=== PATIENT | male | born 1945 | race African-American/Black ===

== ENCOUNTER 2019-08-26 14:31 | Inpatient (IN) | payer MEDICARE, OTHER ==
[~2019-08-26] VITALS: Ht 167.6 cm; Wt 56.2 kg
--- NOTE | 2019-08-26 15:20 | Emergency Room Report ---
History of Present Illness General Chief Complaint: Generalized Weakness Source: EMS Present Illness HPI Disclaimer: Please note that this report is being documented using [employer] technology. This can lead to erroneous entry secondary to incorrect interpretation by the dictating instrument. HPI: 73-year-old male presents from [facility] due to fever cough shortness of breath and failure to thrive. Patient states he is felt generally weak for the past few days associated with cough and mild shortness of breath. He did report one episode of nausea and vomiting today. Denies any diarrhea abdominal pain or chest pain. PMH: BPH PSH: Reviewed Social Hx: Patient denies smoking drinking or illicit drug use Allergies: Coded Allergies: No Known Allergies (Unverified , 08/26/19) COVID-19 Screening Contact w/high risk pt: Yes Recent Travel to affected area: No Experienced COVID-19 symptoms?: Yes COVID-19 symptoms experienced: Fever (T>100.4F or >38C), Shortness of Breath, Cough Nursing Documentation-PMH Hx Cardiac Problems: Yes - CVD Review of Systems All Other Systems: negative except mentioned in HPI Physical Exam Vital Signs Date Time Temp Pulse Resp B/P (MAP) Pulse Ox O2 Delivery O2 Flow Rate FiO2 08/26/19 14:34 99.3 82 20 132/74 (93) 89 Room Air Sp02 EP Interpretation: reviewed, abnormal General Appearance: well appearing, no apparent distress Head: normocephalic, atraumatic Eyes: bilateral eye PERRL, bilateral eye EOMI ENT: hearing grossly normal, moist mucus membranes Neck: full range of motion, supple Respiratory: lungs clear, normal breath sounds, no rhonchi, no wheezing, speaking full sentences, other - Patient tachypneic Cardiovascular #1: normal peripheral pulses, regular rate, rhythm, no murmur Gastrointestinal: non tender, soft, non-distended, no guarding Neurologic: alert, oriented x3, no focal defects Skin: normal color, warm/dry Procedures Critical Care Time Critical Care Time Critical care is made on this patient due to presentation with pneumonia, suspected coronavirus infection requiring my acute intervention. Critical care time is 38 minutes and excludes procedures. Medical Decision Making Diagnostic Impression: Primary Impression: Pneumonia Additional Impression: Suspected 2019 novel coronavirus infection ER Course MDM: Patient presents from long term facility with flulike symptoms. He was hypoxic on arrival. Differential diagnosis included but not limited to pneumonia,Coronavirus infection, CHF to name a few Clinical course-septic work-up initiated, oxygen given, chest x-ray ordered. Chest x-ray did demonstrate evidence of right sided pneumonia. As patient currently lives in a long term facility will treat for hospital-acquired pneumonia. I did give broad-spectrum antibiotics. Discussed the findings with patient's primary care doctor who agreed to admit to the telemetry floor under isolation. No virus testing was sent as well. Labs Laboratory Tests Test 08/26/19 13:45 08/26/19 15:25 08/26/19 17:50 Urine Color Brown Urine Appearance Clear Urine pH 5 (4.5-8.0) Urine Specific [place] 1.020 (1.005-1.035) Urine Protein 3+ (NEGATIVE) H Urine Glucose (UA) Negative (NEGATIVE) Urine Ketones 1+ (NEGATIVE) H Urine Blood 5+ (NEGATIVE) H Urine Nitrite Negative (NEGATIVE) Urine Bilirubin Negative (NEGATIVE) Urine Urobilinogen 4 MG/DL (0.0-1.0) H Urine Leukocyte Esterase 1+ (NEGATIVE) H Urine RBC 5-10 /HPF (0 - 0) H Urine WBC 2-4 /HPF (0 - 0) Urine Squamous Epithelial Cells None /LPF (NONE/OCC) Urine Amorphous Sediment Few /LPF (NONE) H Urine Bacteria Few /HPF (NONE) Urine Coarse Granular Casts 2-4 /LPF (NONE) H White Blood Count 11.0 K/UL (4.8-10.8) H Red Blood Count 4.59 M/UL (4.70-6.10) L Hemoglobin 14.5 G/DL (14.2-18.0) Hematocrit 40.7 % (42.0-52.0) L Mean Corpuscular Volume 89 FL (80-99) Mean Corpuscular Hemoglobin 31.5 PG (27.0-31.0) H Mean Corpuscular Hemoglobin Concent 35.5 G/DL (32.0-36.0) Red Cell Distribution Width 10.2 % (11.6-14.8) L Platelet Count 260 K/UL (150-450) Mean Platelet Volume 6.5 FL (6.5-10.1) Neutrophils (%) (Auto) % (45.0-75.0) Lymphocytes (%) (Auto) % (20.0-45.0) Monocytes (%) (Auto) % (1.0-10.0) Eosinophils (%) (Auto) % (0.0-3.0) Basophils (%) (Auto) % (0.0-2.0) Neutrophils % (Manual) Pending Lymphocytes % (Manual) Pending Platelet Estimate Pending Platelet Morphology Pending Sodium Level 139 MMOL/L (136-145) Potassium Level 3.6 MMOL/L (3.5-5.1) Chloride Level 99 MMOL/L (98-107) Carbon Dioxide Level 29 MMOL/L (21-32) Anion Gap 11 mmol/L (5-15) Blood Urea Nitrogen 22 mg/dL (7-18) H Creatinine 1.5 MG/DL (0.55-1.30) H Estimated Glomerular Filtration Rate 45.6 mL/min (>60) Glucose Level 127 MG/DL (74-106) H Lactic Acid Level 2.20 mmol/L (0.4-2.0) H Pending Calcium Level 8.9 MG/DL (8.5-10.1) Total Bilirubin 0.7 MG/DL (0.2-1.0) Aspartate Amino Transferase (AST) 87 U/L (15-37) H Alanine Aminotransferase (ALT) 119 U/L (12-78) H Alkaline Phosphatase 100 U/L (46-116) Total Creatine Kinase 110 U/L (26-308) Creatine Kinase MB 0.5 NG/ML (0.0-3.6) Creatine Kinase MB Relative Index 0.4 Troponin I 0.000 ng/mL (0.000-0.056) Pro-B-Type Natriuretic Peptide 253 pg/mL (0-125) H Total Protein 8.4 G/DL (6.4-8.2) H Albumin 3.3 G/DL (3.4-5.0) L Globulin 5.1 g/dL Albumin/Globulin Ratio 0.6 (1.0-2.7) L On reevaluation: Patient remained on oxygen. He did become febrile in the ER so Tylenol was given as well. Tylenol and IV fluids vital signs did improved as well as with supplemental oxygen. Plan-patient admitted to the telemetry floor under isolation. Patient admitted to Dr. Jaramillo EKG Diagnostic Results Rate: normal Rhythm: NSR ST Segments: no acute changes Rhythm Strip Diag. Results EP Interpretation: yes Rate: 75 Rhythm: NSR, no PVC's, no ectopy Other Impression Normal sinus rhythm Chest X-Ray Diagnostic Results Chest X-Ray Diagnostic Results : Chest X-Ray Ordered: Yes # of Views/Limited/Complete: 1 View Indication: Shortness of Breath EP Interpretation: Yes Interpretation: other - Right lower lobe pneumonia no pneumothorax no cardiomegaly Impression: Other - Right-sided consolidation concerning for pneumonia Last Vital Signs Date Time Temp Pulse Resp B/P (MAP) Pulse Ox O2 Delivery O2 Flow Rate FiO2 08/26/19 14:34 99.3 82 20 132/74 (93) 89 Room Air Status: worsened Disposition: ADMITTED INPATIENT Condition: Serious Scripts Unable to Obtain Active Prescriptions or Reported Meds Leonard Parra M.D. August 26, 2019 15:20
--- NOTE | 2019-08-26 15:25 | NUR ---
ED Nurse Note: Pt received in bed, connected to cardic monitor. Per summary report, pt BIB [facility] from [facility] for failure to thrive, SOB, cough and fever unk onset. Pt is aaox4, breathing is normal and unlabored does not appear SOB at this time. Pt oxygen saturation is 97% on room air. Pt denies any pain at this time. No acute distress noted. Safety measures in place. IV access established, blood drawn by CLAUDE Fischer. Will cont. to monitor.
[2019-08-26 15:58] LABS: HEMATOCRIT 40.7 % (42.0-52.0); HEMOGLOBIN 14.5 G/DL (14.2-18.0); MEAN CORPUSCULAR VOLUME 89 FL (80-99); PLATELET COUNT 260 K/UL (150-450); RED BLOOD COUNT 4.59 M/UL (4.70-6.10); RED CELL DISTRIBUTION WIDTH 10.2 % (11.6-14.8)
[2019-08-26 16:00] VITALS: BP 128/79
--- NOTE | 2019-08-26 16:00 | NUR ---
ED Nurse Note: Pt rectal temp taken. Pt has rectal temp of 102.4F. ERMD aware. Will carry out med order.
[2019-08-26 16:06] LABS: ANION GAP 11 mmol/L (5-15); BLOOD UREA NITROGEN 22 mg/dL (7-18); CALCIUM 8.9 MG/DL (8.5-10.1); CARBON DIOXIDE 29 MMOL/L (21-32); CHLORIDE 99 MMOL/L (98-107); CREATININE 1.5 MG/DL (0.55-1.30); POTASSIUM 3.6 MMOL/L (3.5-5.1); SODIUM 139 MMOL/L (136-145)
[2019-08-26 16:13] LABS: APPEARANCE,URINE CLEAR; BILIRUBIN, URINE NEGATIVE (NEGATIVE); COLOR,URINE BROWN; GLUCOSE, URINE (UA) NEGATIVE (NEGATIVE); KETONES,URINE 1+ (NEGATIVE); LEUKOCYTE ESTERASE ,URINE 1+ (NEGATIVE); NITRITE,URINE NEGATIVE (NEGATIVE); PH,URINE 5 (4.5-8.0); PROTEIN,URINE 3+ (NEGATIVE); UROBILINOGEN,URINE 4 MG/DL (0.0-1.0)
[2019-08-26 16:15] LABS: ALANINE AMINOTRANSFERASE 119 U/L (12-78); ALBUMIN 3.3 G/DL (3.4-5.0); ALBUMIN/GLOBULIN RATIO 0.6 (1.0-2.7); ALKALINE PHOSPHATASE 100 U/L (46-116); ASPARTATE AMINO TRANSFERASE 87 U/L (15-37); BILIRUBIN,TOTAL 0.7 MG/DL (0.2-1.0); CKMB 0.5 NG/ML (0.0-3.6); CREATINE KINASE 110 U/L (26-308)
[2019-08-26] MEDS ORDERED: Azithromycin 500 MG in NS 275 ML IV ONE (16:15)
[2019-08-26] MEDS ORDERED: Piperacillin/Tazobactam 3.375 GM in NS 110 ML IVPB ONE (16:15)
[2019-08-26] MEDS ORDERED: Vancomycin 1 GM in NS 275 ML IVPB ONE (16:15)
[2019-08-26 16:40] VITALS: BP 117/56
--- NOTE | 2019-08-26 16:40 | NUR ---
ED Nurse Note: Pt oxygen sat dropped to 92% on RA. Pt placed on supplemental oxygen at 2L via NC.
--- NOTE | 2019-08-26 16:43 | Diagnostic Imaging Report ---
EXAM: XR Chest, 1 View CLINICAL HISTORY: SOB TECHNIQUE: Frontal view of the chest. COMPARISON: None FINDINGS: Hardware: None. Lungs/pleura: Consolidation in the right mid and lower lung is concerning for pneumonia. Trace right pleural effusion. Heart/mediastinum: Normal. No cardiomegaly. Soft tissues: Unremarkable. Bones: No acute fracture. Upper abdomen: Normal. IMPRESSION: Consolidation in the right mid and lower lung is concerning for pneumonia. Trace right pleural effusion.
--- NOTE | 2019-08-26 17:50 | NUR ---
ED Nurse Note: Repeat lactic drawn and sent to lab. Pt is resting in bed. NAD.
[2019-08-26] MEDS ORDERED: Nitroglycerin Subl 0.4mg tab SL PRN (18:15)
[2019-08-26] MEDS ORDERED: Milk of Magnesia 30ml Ud ORAL PRN (18:15)
[2019-08-26] MEDS: Aspirin Baby 81mg ORAL SCH (18:33)
[2019-08-26 18:40] VITALS: BP 120/65
--- NOTE | 2019-08-26 18:40 | NUR ---
ED Nurse Note: Pt rectal temp is now 100.3 after tylenol. Pt given dinner tray, no acute distress noted. Pt remains in 2L oxygen via NC. VSS. Safety measures in place. Will cont. to monitor.
--- NOTE | 2019-08-26 19:45 | NUR ---
ED Nurse Note: Pt ate aprrox 15% of dinner tray. Pt able to swallow without complications.
--- NOTE | 2019-08-26 20:00 | NUR ---
ED Nurse Note: Report given to floor nurse at this time.
--- NOTE | 2019-08-26 20:20 | NUR ---
ED Nurse Note: Pt is stable for transfer to tele unit at this time. Pt is awake and alert, oriented x4, speaking in full sentences. Pt is in no acute distress. Pt remains on 2L oxygen via NC, otherwise no respiratory distress noted. Pt taken to unit via gurney by gomez and RN, connected to athletic monitor. Pt belongings sent with pt. VSS. IV is patent and intact.
[2019-08-26 20:30] VITALS: BP 118/61
--- NOTE | 2019-08-26 20:35 | NUR ---
NURSE NOTES: Received report from CLAUDE Harper. Patient transported via gurney to room 205-2 from E. Patient is on awake, alert and oriented x 4. Patient is on regular diet diet, instructed and amenable. reconditioning associate is on placed, shows sinus rhythm with no chest pain nor discomfort reported. Patient is on room air and no shortness of breath noted. Patient is ambulatory. IV site on right AC G-18, that is intact and patent. Safety measures are in placed, bed in low and locked position, bed alarm is on, side rails up x 2. Call light and bedside table within reach, instructed to call for assistance needed. Will continue plan of care.
[2019-08-26] MEDS: Doxycycline Monohydrate 100mg ORAL SCH (21:56)
[2019-08-26] MEDS: cefTRIAXone 1 GM in NS 55 ML IVPB SCH (21:56)
[2019-08-26] MEDS: 1/2NS w/KCl 20mEq 1000ml 1,000 ML IV SCH (21:56)
[2019-08-27] VITALS: BP 115/62
[2019-08-27 04:00] VITALS: BP 112/66
[2019-08-27 05:37] LABS: HEMATOCRIT 32.4 % (42.0-52.0); HEMOGLOBIN 11.8 G/DL (14.2-18.0); MEAN CORPUSCULAR VOLUME 88 FL (80-99); PLATELET COUNT 201 K/UL (150-450); RED BLOOD COUNT 3.69 M/UL (4.70-6.10); RED CELL DISTRIBUTION WIDTH 10.1 % (11.6-14.8); WHITE BLOOD COUNT 8.1 K/UL (4.8-10.8)
[2019-08-27 06:03] LABS: ALANINE AMINOTRANSFERASE 122 U/L (12-78); ALBUMIN 2.2 G/DL (3.4-5.0); ALBUMIN/GLOBULIN RATIO 0.6 (1.0-2.7); ALKALINE PHOSPHATASE 80 U/L (46-116); ANION GAP 8 mmol/L (5-15); ASPARTATE AMINO TRANSFERASE 113 U/L (15-37); BILIRUBIN,TOTAL 0.6 MG/DL (0.2-1.0); BLOOD UREA NITROGEN 20 mg/dL (7-18); CALCIUM 7.5 MG/DL (8.5-10.1); CARBON DIOXIDE 27 MMOL/L (21-32); CHLORIDE 107 MMOL/L (98-107); CREATININE 1.3 MG/DL (0.55-1.30); SODIUM 142 MMOL/L (136-145)
--- NOTE | 2019-08-27 07:37 | NUR ---
HAND-OFF: Report given to CLAUDE Rebollar. Patient is awake, on stable condition. RN made aware of sputum collection. Plan of care endorsed.
[2019-08-27 08:00] VITALS: BP 99/59
--- NOTE | 2019-08-27 08:00 | NUR ---
NURSE NOTES: Report received from Belem ARCE. Patient is observed in bed, awake, alert, and able to make needs known. IV site is asymptomatic, patent, and intact. Respiratory even and unlabored. Denies pain at this time. Bed is in lowest position with side rails up x2 and brakes are engaged. Bed alarm is on. Encouraged pt to use call light when in need of assistance, pt verbalized understanding. Will continue to monitor.
[2019-08-27] MEDS: Aspirin Baby 81mg ORAL SCH (08:43)
[2019-08-27] MEDS: Doxycycline Monohydrate 100mg ORAL SCH ×2 (08:43→20:04)
[2019-08-27] MEDS ORDERED: Albuterol 90mcg Inhaler 8gm INH PRN (10:00)
--- NOTE | 2019-08-27 10:48 | Consultation ---
Luciana Caceres PHOTO COLORER 08/27/19 1048: History of Present Illness General Date patient seen: August 27, 2019 Time patient seen: 10:00 Chief Complaint: SOB, cough, FTT Referring physician: dr James Reason for Consultation: ezra YATES Present Illness HPI 73 years old male with PMH of BPH and CVD, resident of [facility] , was sent for evaluation due to fever, cough, shortness of breath and failure to thrive. Upon presentation patient was hypoxic and required supplemental oxygen. Patient was febrile with temp 102.4. In emergency department patient had leukocytosis. Lactic acid 2.2 Troponin was negative. pro BNP 253. EKG revealed sinus rhythm, no acute ischemic changes. Chest x-ray demonstrated right middle and right lower lung consolidation concerning for pneumonia with a trace right pleural effusion. Laboratory work-up also revealed AST 87 ALT 119. Albumin 3.3. Urinalysis revealed +3 protein ,+1 leukocyte esterase, no pyuria and ,no bacteria. BUN 22, creatinine 1.5. Patient was swabbed for COVID-19. Patient subsequently admitted to telemetry floor to isolation room for further management. Pulmo consult was requested to assist in management of this patient. Allergies: Coded Allergies: No Known Allergies (Unverified , 08/26/19) Medication History Unable to Obtain Active Prescriptions or Reported Meds Patient History History Provided By: Patient, Medical Record Healthcare decision maker Resuscitation status Advanced Directive on File Review of Systems Constitutional: Reports: fever, weakness Eye: Reports: no symptoms ENT: Reports: no symptoms Respiratory: Reports: see HPI Cardiovascular: Reports: no symptoms Gastrointestinal: Reports: no symptoms Genitourinary: Reports: other - hx of BPH Musculoskeletal: Reports: joint pain - at times Skin: Reports: no symptoms Psychiatric: Reports: no symptoms Neurological: Reports: no symptoms Endocrine: Reports: no symptoms Hematologic/Lymphatic: Reports: no symptoms Physical Exam General Appearance: no apparent distress, alert - awake elderly male , forgetful Lines, tubes and drains: peripheral HEENT: normocephalic, atraumatic, anicteric, mucous membranes moist, PERRL, other - O2 via NC Neck: non-tender, supple Respiratory/Chest: lungs clear, no respiratory distress, no accessory muscle use Cardiovascular/Chest: normal rate, regular rhythm Abdomen: normal bowel sounds, soft Extremities: no calf tenderness, non-pitting Neurologic: alert, responsive - frogetful Musculoskeletal: atrophy - BLE Last 24 Hour Vital Signs Date Time Temp Pulse Resp B/P (MAP) Pulse Ox O2 Delivery O2 Flow Rate FiO2 08/27/19 07:45 95 Nasal Cannula 2.0 28 08/27/19 04:00 98.5 73 17 112/66 (81) 99 08/27/19 04:00 70 08/27/19 00:00 98.1 77 18 115/62 (79) 98 08/27/19 00:00 75 08/26/19 23:45 Nasal Cannula 2.0 08/26/19 21:11 85 08/26/19 20:30 98.5 79 18 118/61 (80) 97 08/26/19 20:20 100.0 78 19 104/65 98 Nasal Cannula 2.0 08/26/19 18:40 100.0 81 23 120/65 98 Nasal Cannula 2.0 08/26/19 16:40 86 27 117/56 97 Nasal Cannula 2.0 08/26/19 16:38 100.0 08/26/19 16:00 102.4 94 20 128/79 97 Room Air 08/26/19 15:25 82 20 Room Air 08/26/19 14:34 99.3 82 20 132/74 (93) 89 Room Air Intake and Output 08/26/19 08/27/19 19:00 07:00 Output Total 100 ml Balance -100 ml Output Urine Total 100 ml Laboratory Tests Test 08/26/19 13:45 08/26/19 15:25 08/26/19 17:50 08/27/19 05:00 Urine Color Brown Urine Appearance Clear Urine pH 5 (4.5-8.0) Urine Specific [place] 1.020 (1.005-1.035) Urine Protein 3+ (NEGATIVE) H Urine Glucose (UA) Negative (NEGATIVE) Urine Ketones 1+ (NEGATIVE) H Urine Blood 5+ (NEGATIVE) H Urine Nitrite Negative (NEGATIVE) Urine Bilirubin Negative (NEGATIVE) Urine Urobilinogen 4 MG/DL (0.0-1.0) H Urine Leukocyte Esterase 1+ (NEGATIVE) H Urine RBC 5-10 /HPF (0 - 0) H Urine WBC 2-4 /HPF (0 - 0) Urine Squamous Epithelial Cells None /LPF (NONE/OCC) Urine Amorphous Sediment Few /LPF (NONE) H Urine Bacteria Few /HPF (NONE) Urine Coarse Granular Casts 2-4 /LPF (NONE) H White Blood Count 11.0 K/UL (4.8-10.8) H 8.1 K/UL (4.8-10.8) Red Blood Count 4.59 M/UL (4.70-6.10) L 3.69 M/UL (4.70-6.10) L Hemoglobin 14.5 G/DL (14.2-18.0) 11.8 G/DL (14.2-18.0) L Hematocrit 40.7 % (42.0-52.0) L 32.4 % (42.0-52.0) L Mean Corpuscular Volume 89 FL (80-99) 88 FL (80-99) Mean Corpuscular Hemoglobin 31.5 PG (27.0-31.0) H 32.0 PG (27.0-31.0) H Mean Corpuscular Hemoglobin Concent 35.5 G/DL (32.0-36.0) 36.4 G/DL (32.0-36.0) H Red Cell Distribution Width 10.2 % (11.6-14.8) L 10.1 % (11.6-14.8) L Platelet Count 260 K/UL (150-450) 201 K/UL (150-450) Mean Platelet Volume 6.5 FL (6.5-10.1) 6.4 FL (6.5-10.1) L Neutrophils (%) (Auto) % (45.0-75.0) % (45.0-75.0) Lymphocytes (%) (Auto) % (20.0-45.0) % (20.0-45.0) Monocytes (%) (Auto) % (1.0-10.0) % (1.0-10.0) Eosinophils (%) (Auto) % (0.0-3.0) % (0.0-3.0) Basophils (%) (Auto) % (0.0-2.0) % (0.0-2.0) Differential Total Cells Counted 100 Neutrophils % (Manual) 89 % (45-75) H Lymphocytes % (Manual) 6 % (20-45) L Monocytes % (Manual) 5 % (1-10) Eosinophils % (Manual) 0 % (0-3) Basophils % (Manual) 0 % (0-2) Band Neutrophils 0 % (0-8) Platelet Estimate Adequate Platelet Morphology Normal Red Blood Cell Morphology Normal Sodium Level 139 MMOL/L (136-145) 142 MMOL/L (136-145) Potassium Level 3.6 MMOL/L (3.5-5.1) 4.0 MMOL/L (3.5-5.1) Chloride Level 99 MMOL/L (98-107) 107 MMOL/L (98-107) Carbon Dioxide Level 29 MMOL/L (21-32) 27 MMOL/L (21-32) Anion Gap 11 mmol/L (5-15) 8 mmol/L (5-15) Blood Urea Nitrogen 22 mg/dL (7-18) H 20 mg/dL (7-18) H Creatinine 1.5 MG/DL (0.55-1.30) H 1.3 MG/DL (0.55-1.30) Estimat Glomerular Filtration Rate 45.6 mL/min (>60) 53.8 mL/min (>60) Glucose Level 127 MG/DL (74-106) H 115 MG/DL (74-106) H Lactic Acid Level 2.20 mmol/L (0.4-2.0) H 0.90 mmol/L (0.66-2.22) Calcium Level 8.9 MG/DL (8.5-10.1) 7.5 MG/DL (8.5-10.1) L Total Bilirubin 0.7 MG/DL (0.2-1.0) 0.6 MG/DL (0.2-1.0) Aspartate Amino Transf (AST/SGOT) 87 U/L (15-37) H 113 U/L (15-37) H Alanine Aminotransferase (ALT/SGPT) 119 U/L (12-78) H 122 U/L (12-78) H Alkaline Phosphatase 100 U/L (46-116) 80 U/L (46-116) Total Creatine Kinase 110 U/L (26-308) Creatine Kinase MB 0.5 NG/ML (0.0-3.6) Creatine Kinase MB Relative Index 0.4 Troponin I 0.000 ng/mL (0.000-0.056) 0.000 ng/mL (0.000-0.056) Pro-B-Type Natriuretic Peptide 253 pg/mL (0-125) H Total Protein 8.4 G/DL (6.4-8.2) H 6.1 G/DL (6.4-8.2) L Albumin 3.3 G/DL (3.4-5.0) L 2.2 G/DL (3.4-5.0) L Globulin 5.1 g/dL 3.9 g/dL Albumin/Globulin Ratio 0.6 (1.0-2.7) L 0.6 (1.0-2.7) L Thyroid Stimulating Hormone (TSH) 1.136 uiU/mL (0.358-3.740) Height (Feet): 5 Height (Inches): 6.00 Weight (Pounds): 130 Medications Current Medications Medications (Trade) Dose Ordered Sig/Lucius Route PRN Reason Start Time Stop Time Status Last Admin Dose Admin Acetaminophen (Tylenol) 650 mg Q4H PRN ORAL Mild Pain (Pain Scale 1-3) 08/26/19 18:15 09/25/19 18:14 Acetaminophen (Tylenol) 650 mg Q4H PRN ORAL Temp >100.5 08/26/19 18:15 09/25/19 18:14 Albuterol Sulfate (Proventil MDI) 2 puff Q4H PRN INH Shortness of Breath 08/27/19 10:00 11/25/19 09:59 Aspirin (ASA) 81 mg DAILY ORAL 08/26/19 18:21 10/10/19 18:20 08/27/19 08:43 Ceftriaxone Sodium 1 gm/ Sodium Chloride 55 ml @ 110 mls/hr Q24H IVPB 08/26/19 21:00 09/02/19 20:59 08/26/19 21:56 Dextrose (Dextrose 50%) 25 ml Q30M PRN IV Hypoglycemia 08/26/19 18:15 11/24/19 18:14 Dextrose (Dextrose 50%) 50 ml Q30M PRN IV Hypoglycemia 08/26/19 18:15 11/24/19 18:14 Doxycycline Monohydrate (Doxycycline Monohydrate) 100 mg Q12HR ORAL 08/26/19 21:00 09/02/19 20:59 08/27/19 08:43 Enoxaparin Sodium (Lovenox) 60 mg Q24H SUBQ 08/26/19 19:15 11/24/19 19:14 UNV Famotidine (Pepcid) 20 mg BID ORAL 08/27/19 09:00 11/25/19 08:59 08/27/19 08:43 Magnesium Hydroxide (Mom) 30 ml HSPRN PRN ORAL Constipation 08/26/19 18:15 09/25/19 18:14 Nitroglycerin (Ntg) 0.4 mg Q5M PRN SL Prn Chest Pain 08/26/19 18:15 09/25/19 18:14 Ondansetron HCl (Zofran) 4 mg Q6H PRN IVP Nausea & Vomiting 08/26/19 18:15 09/25/19 18:14 Sodium 1,000 ml @ 50 mls/hr Q20H IV 08/26/19 21:00 09/25/19 20:59 08/26/19 21:56 Assessment/Plan Assessment/Plan: ASSESSMENT Suspected COVID 19 infection Probably sepsis ( with fevers, leukocytosis, lactic acidosis and evidence of infection) Likely PNA Hypoxia Transaminitis ALEC FTT , probably due to protein calorie malnutrition PLAN OF CARE tele and isolation SARS-CoV-2 by PCR pending agree with empiric Ceftriaxone and Doxycycline for now fup with cx leuk and fevers already resolved fup with CXR in am O2 titrate to keep sat above 90% MDI for now until awaiting for CoVID result DVT prophylaxis ASA resumed gentle IV hydration monitor renal paramerts, lytes, correct as needed trend LFT GI prophylaxis dietary eval re protein supplements case discussed and evaluated by supervising physician Yuneir Decker MD 08/27/19 1816: History of Present Illness General Chief Complaint: SOB, cough, FTT Present Illness Allergies: Coded Allergies: No Known Allergies (Unverified , 08/26/19) Medication History Unable to Obtain Active Prescriptions or Reported Meds Assessment/Plan Assessment/Plan: Patient seen and examined with PHOTO COLORER, agree with A&P as it reflects our joint deliberations. NHR PNA Abx R/O COVID PRN HFA Asp precautions HEEL BREASTER eval DVT Px: LMWH Discuss GOLuciana De La Rosa PHOTO COLORER August 27, 2019 10:48 Yunier Decker MD August 27, 2019 18:16
[2019-08-27 12:00] VITALS: BP 112/62
--- NOTE | 2019-08-27 12:43 | Infectious Diseases Prog Note ---
Assessment/Plan Assessment/Plan Full consult dictated: A) 1) CAP 2) rule out covid-19 virus infection 3) possible sepsis P) 1) ceftriaxone and doxycycline 2) await covid19 virus infection 3) f/u labs and chest x-ray 4) thank you Subjective Allergies: Coded Allergies: No Known Allergies (Unverified , 08/26/19) Objective Vital Signs Last 24 Hour Vital Signs Date Time Temp Pulse Resp B/P (MAP) Pulse Ox O2 Delivery O2 Flow Rate FiO2 08/27/19 12:00 98.2 68 17 112/62 (79) 98 08/27/19 09:00 Nasal Cannula 2.0 08/27/19 08:02 62 08/27/19 08:00 98.1 76 17 99/59 (72) 96 08/27/19 07:45 95 Nasal Cannula 2.0 28 08/27/19 04:00 98.5 73 17 112/66 (81) 99 08/27/19 04:00 70 08/27/19 00:00 98.1 77 18 115/62 (79) 98 08/27/19 00:00 75 08/26/19 23:45 Nasal Cannula 2.0 08/26/19 21:11 85 08/26/19 20:30 98.5 79 18 118/61 (80) 97 08/26/19 20:20 100.0 78 19 104/65 98 Nasal Cannula 2.0 08/26/19 18:40 100.0 81 23 120/65 98 Nasal Cannula 2.0 08/26/19 16:40 86 27 117/56 97 Nasal Cannula 2.0 08/26/19 16:38 100.0 08/26/19 16:00 102.4 94 20 128/79 97 Room Air 08/26/19 15:25 82 20 Room Air 08/26/19 14:34 99.3 82 20 132/74 (93) 89 Room Air Height (Feet): 5 Height (Inches): 6.00 Weight (Pounds): 130 Laboratory Tests Test 08/26/19 13:45 08/26/19 15:25 08/26/19 17:50 08/27/19 05:00 Urine Color Brown Urine Appearance Clear Urine pH 5 (4.5-8.0) Urine Specific [place] 1.020 (1.005-1.035) Urine Protein 3+ (NEGATIVE) H Urine Glucose (UA) Negative (NEGATIVE) Urine Ketones 1+ (NEGATIVE) H Urine Blood 5+ (NEGATIVE) H Urine Nitrite Negative (NEGATIVE) Urine Bilirubin Negative (NEGATIVE) Urine Urobilinogen 4 MG/DL (0.0-1.0) H Urine Leukocyte Esterase 1+ (NEGATIVE) H Urine RBC 5-10 /HPF (0 - 0) H Urine WBC 2-4 /HPF (0 - 0) Urine Squamous Epithelial Cells None /LPF (NONE/OCC) Urine Amorphous Sediment Few /LPF (NONE) H Urine Bacteria Few /HPF (NONE) Urine Coarse Granular Casts 2-4 /LPF (NONE) H White Blood Count 11.0 K/UL (4.8-10.8) H 8.1 K/UL (4.8-10.8) Red Blood Count 4.59 M/UL (4.70-6.10) L 3.69 M/UL (4.70-6.10) L Hemoglobin 14.5 G/DL (14.2-18.0) 11.8 G/DL (14.2-18.0) L Hematocrit 40.7 % (42.0-52.0) L 32.4 % (42.0-52.0) L Mean Corpuscular Volume 89 FL (80-99) 88 FL (80-99) Mean Corpuscular Hemoglobin 31.5 PG (27.0-31.0) H 32.0 PG (27.0-31.0) H Mean Corpuscular Hemoglobin Concent 35.5 G/DL (32.0-36.0) 36.4 G/DL (32.0-36.0) H Red Cell Distribution Width 10.2 % (11.6-14.8) L 10.1 % (11.6-14.8) L Platelet Count 260 K/UL (150-450) 201 K/UL (150-450) Mean Platelet Volume 6.5 FL (6.5-10.1) 6.4 FL (6.5-10.1) L Neutrophils (%) (Auto) % (45.0-75.0) % (45.0-75.0) Lymphocytes (%) (Auto) % (20.0-45.0) % (20.0-45.0) Monocytes (%) (Auto) % (1.0-10.0) % (1.0-10.0) Eosinophils (%) (Auto) % (0.0-3.0) % (0.0-3.0) Basophils (%) (Auto) % (0.0-2.0) % (0.0-2.0) Differential Total Cells Counted 100 Neutrophils % (Manual) 89 % (45-75) H Lymphocytes % (Manual) 6 % (20-45) L Monocytes % (Manual) 5 % (1-10) Eosinophils % (Manual) 0 % (0-3) Basophils % (Manual) 0 % (0-2) Band Neutrophils 0 % (0-8) Platelet Estimate Adequate Platelet Morphology Normal Red Blood Cell Morphology Normal Sodium Level 139 MMOL/L (136-145) 142 MMOL/L (136-145) Potassium Level 3.6 MMOL/L (3.5-5.1) 4.0 MMOL/L (3.5-5.1) Chloride Level 99 MMOL/L (98-107) 107 MMOL/L (98-107) Carbon Dioxide Level 29 MMOL/L (21-32) 27 MMOL/L (21-32) Anion Gap 11 mmol/L (5-15) 8 mmol/L (5-15) Blood Urea Nitrogen 22 mg/dL (7-18) H 20 mg/dL (7-18) H Creatinine 1.5 MG/DL (0.55-1.30) H 1.3 MG/DL (0.55-1.30) Estimat Glomerular Filtration Rate 45.6 mL/min (>60) 53.8 mL/min (>60) Glucose Level 127 MG/DL (74-106) H 115 MG/DL (74-106) H Lactic Acid Level 2.20 mmol/L (0.4-2.0) H 0.90 mmol/L (0.66-2.22) Calcium Level 8.9 MG/DL (8.5-10.1) 7.5 MG/DL (8.5-10.1) L Total Bilirubin 0.7 MG/DL (0.2-1.0) 0.6 MG/DL (0.2-1.0) Aspartate Amino Transf (AST/SGOT) 87 U/L (15-37) H 113 U/L (15-37) H Alanine Aminotransferase (ALT/SGPT) 119 U/L (12-78) H 122 U/L (12-78) H Alkaline Phosphatase 100 U/L (46-116) 80 U/L (46-116) Total Creatine Kinase 110 U/L (26-308) Creatine Kinase MB 0.5 NG/ML (0.0-3.6) Creatine Kinase MB Relative Index 0.4 Troponin I 0.000 ng/mL (0.000-0.056) 0.000 ng/mL (0.000-0.056) Pro-B-Type Natriuretic Peptide 253 pg/mL (0-125) H Total Protein 8.4 G/DL (6.4-8.2) H 6.1 G/DL (6.4-8.2) L Albumin 3.3 G/DL (3.4-5.0) L 2.2 G/DL (3.4-5.0) L Globulin 5.1 g/dL 3.9 g/dL Albumin/Globulin Ratio 0.6 (1.0-2.7) L 0.6 (1.0-2.7) L Thyroid Stimulating Hormone (TSH) 1.136 uiU/mL (0.358-3.740) Current Medications Medications (Trade) Dose Ordered Sig/Lucius Route PRN Reason Start Time Stop Time Status Last Admin Dose Admin Acetaminophen (Tylenol) 650 mg Q4H PRN ORAL Mild Pain (Pain Scale 1-3) 08/26/19 18:15 09/25/19 18:14 Acetaminophen (Tylenol) 650 mg Q4H PRN ORAL Temp >100.5 08/26/19 18:15 09/25/19 18:14 Albuterol Sulfate (Proventil MDI) 2 puff Q4H PRN INH Shortness of Breath 08/27/19 10:00 11/25/19 09:59 Aspirin (ASA) 81 mg DAILY ORAL 08/26/19 18:21 10/10/19 18:20 08/27/19 08:43 Azithromycin (Zithromax) 250 mg DAILY ORAL 08/28/19 09:00 09/04/19 08:59 UNV Ceftriaxone Sodium 1 gm/ Sodium Chloride 55 ml @ 110 mls/hr Q24H IVPB 08/26/19 21:00 09/02/19 20:59 08/26/19 21:56 Dextrose (Dextrose 50%) 25 ml Q30M PRN IV Hypoglycemia 08/26/19 18:15 11/24/19 18:14 Dextrose (Dextrose 50%) 50 ml Q30M PRN IV Hypoglycemia 08/26/19 18:15 11/24/19 18:14 Doxycycline Monohydrate (Doxycycline Monohydrate) 100 mg Q12HR ORAL 08/26/19 21:00 09/02/19 20:59 08/27/19 08:43 Enoxaparin Sodium (Lovenox) 60 mg Q24H SUBQ 08/26/19 19:15 11/24/19 19:14 UNV Famotidine (Pepcid) 20 mg BID ORAL 08/27/19 09:00 11/25/19 08:59 08/27/19 08:43 Magnesium Hydroxide (Mom) 30 ml HSPRN PRN ORAL Constipation 08/26/19 18:15 09/25/19 18:14 Nitroglycerin (Ntg) 0.4 mg Q5M PRN SL Prn Chest Pain 08/26/19 18:15 09/25/19 18:14 Ondansetron HCl (Zofran) 4 mg Q6H PRN IVP Nausea & Vomiting 08/26/19 18:15 09/25/19 18:14 Sodium 1,000 ml @ 50 mls/hr Q20H IV 08/26/19 21:00 09/25/19 20:59 08/26/19 21:56 Marsha Rivera MD August 27, 2019 12:43
--- NOTE | 2019-08-27 13:23 | NUR ---
NURSE NOTES: Contacted Dr. Jaramillo regarding lovenox dosage, awaiting call back.
--- NOTE | 2019-08-27 13:47 | NUR ---
NURSE NOTES: Per Dr. Jaramillo, keep lovenox 60mg subq. Will carry out order.
[2019-08-27] MEDS: Enoxaparin 60mg Inj SUBQ SCH (14:20)
[2019-08-27 16:00] VITALS: BP 100/66
[2019-08-27] MEDS: 1/2NS w/KCl 20mEq 1000ml 1,000 ML IV SCH (17:35)
--- NOTE | 2019-08-27 19:40 | NUR ---
NURSE NOTES: Received report from CLAUDE Rebollar. Patient is on bed, awake, alert and oriented x 4. Patient is on regular diet diet, instructed and amenable. tailor apprentice is on placed, shows sinus rhythm with no chest pain nor discomfort reported. Patient is on nasal cannula @ 2Lpm and no shortness of breath noted. Patient is ambulatory. IV site on right AC G-18, with running fluid of 1/2 NS @ 50cc/hour that is intact and patent. Safety measures are in placed, bed in low and locked position, bed alarm is on, side rails up x 2. Call light and bedside table within reach, instructed to call for assistance needed. Will continue plan of care
--- NOTE | 2019-08-27 19:44 | NUR ---
HAND-OFF: Report given to Belem ARCE. Patient is in stable condition. Endorsed plan of care.
[2019-08-27 20:00] VITALS: BP 105/60
[2019-08-27] MEDS: cefTRIAXone 1 GM in NS 55 ML IVPB SCH (20:05)
[2019-08-28] VITALS: BP 109/61
--- NOTE | 2019-08-28 00:29 | History and Physical Report ---
DATE OF ADMISSION: 08/26/2019 CHIEF COMPLAINT AND REASON FOR HOSPITALIZATION: The patient is a 73-year-old man admitted with weakness, hypoxemia, pneumonia. HISTORY OF PRESENT ILLNESS: The patient is generally in good health. This is a 73-year-old man, who lives in a assisted living facility. He was sent in for eating and drinking very little over the last 3 days and generalized weakness, O2 saturation of 89% on room air. Chest x-ray shows right-sided infiltrate. There was a concern for COVID-19. He has not been tested but apparently other residents of his facility have had the COVID-19. The patient has a history of prior prostatectomy and possibly coronary disease as he has taken baby aspirin in the past. No chest pain. No productive cough. He denies shortness of breath at this time but he is weak. He has atypical gait for longstanding. ALLERGIES: None known. MEDICATIONS: Aspirin 81 mg daily which he takes intermittently. HABITS: He is a nondrinker and nonsmoker. PAST SURGICAL HISTORY: Prostatectomy. SYSTEM REVIEW: HEAD, EYES, EARS, NOSE, AND THROAT: Vision and hearing is good. ENDOCRINE: No diabetes or thyroid disease. PULMONARY: See history of present illness. No known TB. CARDIAC: He is not complaining of chest pain, palpitations, leg edema. GASTROINTESTINAL: Anorexia. No abdominal pain, nausea, vomiting. GENITOURINARY: No dysuria or hematuria. NEUROLOGIC: No CVA or seizures. He has an abnormal gait. PHYSICAL EXAMINATION: GENERAL: The patient is alert man, in no acute distress, thin. VITAL SIGNS: Temperature 98.5, pulse 70, respiratory rate 20, blood pressure 100/66. HEAD, EYES, EARS, NOSE, AND THROAT: Sclerae are nonicteric. Ocular motions intact in all directions. Oral mucosa slightly dry. NECK: No adenopathy or thyroid enlargement. LUNGS: Clear. He has a dry cough. HEART: Regular rhythm. ABDOMEN: Soft without organomegaly. EXTREMITIES: No edema. NEUROLOGIC: He is alert and responsive. Moves all extremities equally. No focal weakness. PERTINENT LABORATORY DATA: Initial white count 36413, hemoglobin 14.5. Electrolytes normal. BUN 22, creatinine 1.5, glucose 127. BNP of 253. Albumin 3.3. AST 87, ALT of 119. IMPRESSION: 1. Pneumonia. 2. Anorexia. 3. Elevated liver enzymes. 4. History of prostatectomy. 5. History of possible mild coronary disease. PLAN: The patient will be hydrated, put on empiric antibiotics. We will get appropriate consultation. We will get ultrasound of the abdomen after liver enzymes. Earle Jaramillo M.D. DR: Abner JOB#: [id number] CC:
[2019-08-28 04:00] VITALS: BP 113/65
[2019-08-28 06:19] LABS: BASOPHILS % (AUTO) 1.2 % (0.0-2.0); EOSINOPHILS % (AUTO) 1.3 % (0.0-3.0); HEMATOCRIT 33.1 % (42.0-52.0); LYMPHOCYTES % (AUTO) 10.1 % (20.0-45.0); MEAN CORPUSCULAR VOLUME 88 FL (80-99); MONOCYTES % (AUTO) 9.1 % (1.0-10.0); NEUTROPHILS % (AUTO) 78.2 % (45.0-75.0); PLATELET COUNT 223 K/UL (150-450); RED BLOOD COUNT 3.77 M/UL (4.70-6.10); RED CELL DISTRIBUTION WIDTH 10.2 % (11.6-14.8); WHITE BLOOD COUNT 6.9 K/UL (4.8-10.8)
[2019-08-28 06:22] LABS: ALANINE AMINOTRANSFERASE 97 U/L (12-78); ALBUMIN 2.3 G/DL (3.4-5.0); ALBUMIN/GLOBULIN RATIO 0.6 (1.0-2.7); ALKALINE PHOSPHATASE 77 U/L (46-116); ANION GAP 8 mmol/L (5-15); ASPARTATE AMINO TRANSFERASE 64 U/L (15-37); BILIRUBIN,TOTAL 0.4 MG/DL (0.2-1.0); BLOOD UREA NITROGEN 20 mg/dL (7-18); CALCIUM 8.1 MG/DL (8.5-10.1); CARBON DIOXIDE 26 MMOL/L (21-32); CHLORIDE 105 MMOL/L (98-107); CREATININE 1.1 MG/DL (0.55-1.30); POTASSIUM 3.6 MMOL/L (3.5-5.1); SODIUM 139 MMOL/L (136-145)
--- NOTE | 2019-08-28 07:58 | NUR ---
HAND-OFF: Report given to CLAUDE Collins. Patient is in stable condition, plan of care endorsed.
--- NOTE | 2019-08-28 07:59 | NUR ---
NURSE NOTES: Received patient in bed awake. O2 via NC in place, no SOB or acute distress. IV line intact and patent. Condom catheter in place draining yellow colored urine. On NPO as instructed by night RN for Abd. CHAVEZ. HOB elevated. Bed locked in lowest position. Call light within reach. Will continue plan of care.
[2019-08-28 08:00] VITALS: BP 121/64
[2019-08-28] MEDS ORDERED: Azithromycin 250mg tab ORAL SCH (09:00)
[2019-08-28] MEDS: Doxycycline Monohydrate 100mg ORAL SCH ×2 (09:15→20:43)
[2019-08-28] MEDS: Aspirin Baby 81mg ORAL SCH (09:15)
--- NOTE | 2019-08-28 09:18 | Pulmonology Progress Note ---
Luciana Caceres TEACHER AIDE 08/28/19 0918: Assessment/Plan Assessment/Plan ASSESSMENT Suspected COVID 19 infection Probably sepsis ( with fevers, leukocytosis, lactic acidosis and evidence of infection) Likely PNA Hypoxia Transaminitis ALEC FTT , probably due to protein calorie malnutrition PLAN OF CARE tele isolation SARS-CoV-2 by PCR pending agree with empiric Ceftriaxone and Doxycycline for now fup with cx BCX NGTD leuk and fevers already resolved fup with CXR this am -epnding O2 titrate to keep sat above 90% MDI for now until awaiting for CoVID result DVT prophylaxis ASA resumed gentle IV hydration monitor renal paramerts, lytes, correct as needed trend LFT-> trending down abd US pending GI prophylaxis dietary eval re protein supplements case discussed and evaluated by supervising physician Subjective Allergies: Coded Allergies: No Known Allergies (Unverified , 08/26/19) Subjective afebrile pulse ox stable on O2 2 L via NC no signs of resp distress CXR pending for this am CoVID pending, remains in isolation Objective Last 24 Hour Vital Signs Date Time Temp Pulse Resp B/P (MAP) Pulse Ox O2 Delivery O2 Flow Rate FiO2 08/28/19 08:00 96.4 72 20 121/64 (83) 96 08/28/19 04:00 72 08/28/19 04:00 99.3 74 20 113/65 (81) 97 08/28/19 00:00 99.7 77 21 109/61 (77) 95 08/28/19 00:00 73 08/27/19 21:00 Nasal Cannula 2.0 08/27/19 20:21 96 Nasal Cannula 2.0 28 08/27/19 20:00 70 08/27/19 20:00 100.1 73 22 105/60 (75) 97 08/27/19 16:00 98.5 70 20 100/66 (77) 99 08/27/19 15:53 70 08/27/19 12:00 98.2 68 17 112/62 (79) 98 08/27/19 11:51 63 Intake and Output 08/27/19 08/28/19 19:00 07:00 Intake Total 50 ml 1150 ml Output Total 480 ml Balance 50 ml 670 ml Intake Oral 600 ml IV Total 50 ml 550 ml Output Urine Total 480 ml # Voids 3 # Bowel Movements 1 3 Objective General Appearance: no apparent distress, alert , awake elderly male , forgetful Lines, tubes and drains: peripheral HEENT: normocephalic, atraumatic, anicteric, mucous membranes moist, PERRL, other - O2 via NC Neck: non-tender, supple Respiratory/Chest: lungs clear, no respiratory distress, no accessory muscle use Cardiovascular/Chest: normal rate, regular rhythm Abdomen: normal bowel sounds, soft Extremities: no calf tenderness, non-pitting Neurologic: alert, responsive , forgetful Musculoskeletal: atrophy BLE Microbiology Date/Time Source Procedure Growth Status 08/26/19 15:24 Blood Blood Culture - Preliminary NO GROWTH AFTER 24 HOURS Resulted 08/26/19 15:10 Blood Blood Culture - Preliminary NO GROWTH AFTER 24 HOURS Resulted Laboratory Tests 08/28/19 05:00: White Blood Count 6.9, Red Blood Count 3.77L, Hemoglobin 12.0L, Hematocrit 33.1L , Mean Corpuscular Volume 88, Mean Corpuscular Hemoglobin 31.9H, Mean Corpuscular Hemoglobin Concent 36.3H, Red Cell Distribution Width 10.2L, Platelet Count 223, Mean Platelet Volume 6.2L, Neutrophils (%) (Auto) 78.2H, Lymphocytes (%) (Auto) 10.1L, Monocytes (%) (Auto) 9.1, Eosinophils (%) (Auto) 1.3, Basophils (%) (Auto) 1.2, Sodium Level 139, Potassium Level 3.6, Chloride Level 105, Carbon Dioxide Level 26, Anion Gap 8, Blood Urea Nitrogen 20H, Creatinine 1.1, Estimat Glomerular Filtration Rate > 60, Glucose Level 100, Calcium Level 8.1L, Total Bilirubin 0.4, Aspartate Amino Transf (AST/SGOT) 64H, Alanine Aminotransferase (ALT/SGPT) 97H, Alkaline Phosphatase 77, Total Protein 6.3L, Albumin 2.3L, Globulin 4.0, Albumin/Globulin Ratio 0.6L Current Medications Medications (Trade) Dose Ordered Sig/Lucius Route PRN Reason Start Time Stop Time Status Last Admin Dose Admin Acetaminophen (Tylenol) 650 mg Q4H PRN ORAL Mild Pain (Pain Scale 1-3) 08/26/19 18:15 09/25/19 18:14 Acetaminophen (Tylenol) 650 mg Q4H PRN ORAL Temp >100.5 08/26/19 18:15 6/1/20 18:14 Albuterol Sulfate (Proventil MDI) 2 puff Q4H PRN INH Shortness of Breath 08/27/19 10:00 11/25/19 09:59 Aspirin (ASA) 81 mg DAILY ORAL 08/26/19 18:21 10/10/19 18:20 08/27/19 08:43 Ceftriaxone Sodium 1 gm/ Sodium Chloride 55 ml @ 110 mls/hr Q24H IVPB 08/26/19 21:00 09/02/19 20:59 08/27/19 20:05 Dextrose (Dextrose 50%) 25 ml Q30M PRN IV Hypoglycemia 08/26/19 18:15 11/24/19 18:14 Dextrose (Dextrose 50%) 50 ml Q30M PRN IV Hypoglycemia 08/26/19 18:15 11/24/19 18:14 Doxycycline Monohydrate (Doxycycline Monohydrate) 100 mg Q12HR ORAL 08/26/19 21:00 09/02/19 20:59 08/27/19 20:04 Enoxaparin Sodium (Lovenox) 60 mg Q24H SUBQ 08/27/19 14:00 11/25/19 13:59 08/27/19 14:20 Famotidine (Pepcid) 20 mg BID ORAL 08/27/19 09:00 11/25/19 08:59 08/27/19 17:36 Magnesium Hydroxide (Mom) 30 ml HSPRN PRN ORAL Constipation 08/26/19 18:15 09/25/19 18:14 Nitroglycerin (Ntg) 0.4 mg Q5M PRN SL Prn Chest Pain 08/26/19 18:15 09/25/19 18:14 Ondansetron HCl (Zofran) 4 mg Q6H PRN IVP Nausea & Vomiting 08/26/19 18:15 09/25/19 18:14 Sodium 1,000 ml @ 50 mls/hr Q20H IV 08/26/19 21:00 09/25/19 20:59 08/27/19 17:35 Yunier Decker MD 08/28/19 1345: Assessment/Plan Assessment/Plan Patient seen and examined with TEACHER AIDE, agree with A&P. Tm 99.7 on 2L VSS + cough + SOB, CXR worse, passed MEDICAL DOCTOR Abx, HFA's, aspiration precautions, LMWH, await COVID results Subjective Allergies: Coded Allergies: No Known Allergies (Unverified , 08/26/19) Luciana Caceres NP August 28, 2019 09:18 Yunier Decker MD August 28, 2019 13:45
[2019-08-28 12:00] VITALS: BP 109/61
--- NOTE | 2019-08-28 12:14 | Diagnostic Imaging Report ---
Indication: Shortness of breath Technique: One view of the chest Comparison: 08/26/2019 Findings: Triangular infiltrate in the periphery of the right lung is probably slightly more extensive, extending farther cephalad. Reticular retrocardiac an peripheral left midlung opacities are slightly more prominent. Impression: Slight interim increase in bilateral right greater than left infiltrates, likely pneumonia, over 2 days
--- NOTE | 2019-08-28 12:30 | NUR ---
NURSE NOTES: IV line found pulled out, reinserted to right hand using g22.
--- NOTE | 2019-08-28 12:47 | NUR ---
NURSE NOTES: IV out and reinserted on right hand using g22.
[2019-08-28] MEDS: 1/2NS w/KCl 20mEq 1000ml 1,000 ML IV SCH (13:07)
[2019-08-28] MEDS: Enoxaparin 60mg Inj SUBQ SCH (13:08)
--- NOTE | 2019-08-28 13:13 | NUR ---
ST NOTES: REFERRED FOR SWALLOW EVAL BY DR SPRING (PRIMARY MD DR MARIN), SEE FULL REPORT. DYSPHAGIA AND ASPIRATION RISK FACTORS FOR THIS 73 Y.O.M. (FROM [place] ACUTE ISSUES: R/O COVID 19 AND R MIDDLE AND LOWER LOBE PNA (AND GETTING TX FOR HOSPITAL-ACQUIRED PNA), GENERAL WEAKNESS, FTT THE LAST FEW DAYS (AND HAS FOOD/LIQUID RESTRICTIONS/PREFERENCES FOR A LONG TIME PER PT), SOB,FEVER, DRY COUGH, DESAT TO 89% UPON ADMIT NOW ON ROOM AIR AND AT 28% FI02, RESP RATE 20-21 AND SP02 95-97% ON ROOM AIR. MEDS: NOW ON PEPCID (GERD) AND ALBUTEROL RESP ISSUES AT ASSISTED LIVING FACILITY HAD REG TEXTURE/THIN LIQUIDS BUT SPECIFIC DIET RESTRICTIONS/PREFERENCES (CALLED RD TO CHECK WITH PT/FACILITY) NOW ON REG TEXTURE DIET AND THIN LIQUIDS WITH POOR INTAKE (LIKELY RELATED TO ABOVE ISSUE). PER RN, NOLBERTO, NO OVERT ASPIRATION WITH WHOLE PILLS AND WATER. PT DENIES SWALLOWING PROBLEMS AND HE HAS SOME MISSING TEETH. NO POLST/AD REGARDING TUBE FEEDING PREFERENCES BUT PT WANTS PO AND DISLIKES THICKENED LIQUIDS. ALERT AND ORIENTED TO COUNTRY/STATE NOT CITY NOR HOSPITAL NAME. ORIENTED TO YEAR BUT NOT SITUATION. FROM [place] AND HAS DIALECT BUT GOOD SPEECH INTELLIGIBILITY. INITIAL IMPRESSIONS: GROSSLY FUNCTIONAL OROMOTOR SKILLS AND HAS SOME MISSING TEETH. POOR ABILITY TO COMPREHEND TONGUE STRENGTH TESTING. VOICE/SPEECH CLEAR FOR SENTENCES, VOLUNTARY AND REFLEXIVE COUGH DRY AND WEAK APPEARS TO HAVE A GROSSLY FUNCTIONAL SWALLOW W/O OVERT S/S OF ASPIRATION WITH NECTAR THICK LIQUIDS VIA STRAW SEQUENTIAL SIP (DISLIKES), PUREED TSP AND MASTICATED SOLIDS. GIVEN THIN LIQUIDS VIA STRAW FOR SEQUENTIAL SIPS (HORSESHOE BEND SWALLOW WATER PROTOCOL), ONLY ABLE TO SWALLOW 1/2 OF 3 0Z WATER AND NEEDED TO STOP, SLIGHT INCREASE IN SOB AND RESP RATE WENT FROM 20 BPM TO 24 BPM (DOWN TO BASELINE AFTER SHORT 30 SECOND REST) MAY HAVE ASP RISK DUE TO RESP-SWALLOW INCOORDINATION IF RESP RATE >25 BPM DESAT TO 89% UPON ADMIT (NO PULSE OX AVAILABLE). ? SILENT ASPIRATION RISK (NO NEURO DX) POOR INTAKE (?MAY RELATE TO DIET RESTRICTIONS/PREFERENCES) RECOMMENDATIONS: CONTINUE WITH PO INTAKE OF CURRENT REGULAR TEXTURE DIET AND THIN LIQUIDS WITH POSTED GENERAL ASPIRATION AND REFLUX PRECAUTIONS (ON GERD MEDS PEPCID) REST IF RESP RATE >25 BPM AND SP02 NOT BELOW 94% SUPERVISE PRN AND MEDS WHOLE WITH WATER OK PER RN RD CONSULT REGARDING DIET RESTRICTIONS/PREFERENCES AND HIGH INDIGO SUP CONSIDER MOD BARIUM SWALLOW STUDY MBSS IF NEEDED IP OR OP (GIVEN CURRENT R MID/LOWER LOBE PNA ? ASPIRATION RELATED) TO FURTHER ASSESS SWALLOW, DETERMINE SILENT ASPIRATION RISK AND ATTEMPT TRIAL TX (IF INDICATED IP OR OP IF DC). ? NEED FOR COG-COM EVAL/TX.
--- NOTE | 2019-08-28 14:41 | NUR ---
CASE MANAGEMENT:REVIEW 73 YR OLD MALE BIBA FROM [facility]; GENERALIZED WEAKNESS, SOB, COUGH AND FEVER SI:PNA. SUSPECTED COVID 19 102.4 82 20 132/74 97% ON RA WBC+11.0 BUN+22 CR+1.5 AST/ALT+87/119 IS: 1L NS BOLUS TYLENOL PO IV AZITHROMYCIN IV ZOSYN IV VANCO BLOOD CX COVID 19 : TO TELEMETRY PLAN: R/O COVID 19
[2019-08-28 15:37] VITALS: BP 101/66
--- NOTE | 2019-08-28 16:12 | General Progress Note ---
Assessment/Plan Problem List: (1) Healthcare-associated pneumonia ICD Codes: J18.9 - Pneumonia, unspecified organism SNOMED: 072832698, 917274212 (2) Suspected 2019 novel coronavirus infection ICD Codes: Z20.828 - Contact with and (suspected) exposure to other viral communicable diseases SNOMED: 762833501 (3) Coronary arteriosclerosis ICD Codes: I25.10 - Atherosclerotic heart disease of [place] coronary artery without angina pectoris SNOMED: 79061410 Assessment/Plan: alessandra hurst supportive care Subjective Constitutional: Reports: weakness HEENT: Reports: no symptoms Cardiovascular: Reports: no symptoms Respiratory: Reports: SOB with excertion Gastrointestinal/Abdominal: Reports: no symptoms Genitourinary: Reports: no symptoms Neurologic/Psychiatric: Reports: no symptoms Endocrine: Reports: no symptoms Hematologic/Lymphatic: Reports: no symptoms Allergies: Coded Allergies: No Known Allergies (Unverified , 08/26/19) Objective Last 24 Hour Vital Signs Date Time Temp Pulse Resp B/P (MAP) Pulse Ox O2 Delivery O2 Flow Rate FiO2 08/28/19 15:37 98.2 79 20 101/66 (78) 96 08/28/19 12:00 96.3 75 20 109/61 (77) 94 08/28/19 12:00 73 08/28/19 09:00 Nasal Cannula 2.0 08/28/19 08:00 96.4 72 20 121/64 (83) 96 08/28/19 08:00 77 08/28/19 04:00 72 08/28/19 04:00 99.3 74 20 113/65 (81) 97 08/28/19 00:00 99.7 77 21 109/61 (77) 95 08/28/19 00:00 73 08/27/19 21:00 Nasal Cannula 2.0 08/27/19 20:21 96 Nasal Cannula 2.0 28 08/27/19 20:00 70 08/27/19 20:00 100.1 73 22 105/60 (75) 97 Intake and Output 08/27/19 08/28/19 19:00 07:00 Intake Total 50 ml 1150 ml Output Total 480 ml Balance 50 ml 670 ml Intake Oral 600 ml IV Total 50 ml 550 ml Output Urine Total 480 ml # Voids 3 # Bowel Movements 1 3 Laboratory Tests 08/28/19 05:00: White Blood Count 6.9, Red Blood Count 3.77L, Hemoglobin 12.0L, Hematocrit 33.1L , Mean Corpuscular Volume 88, Mean Corpuscular Hemoglobin 31.9H, Mean Corpuscular Hemoglobin Concent 36.3H, Red Cell Distribution Width 10.2L, Platelet Count 223, Mean Platelet Volume 6.2L, Neutrophils (%) (Auto) 78.2H, Lymphocytes (%) (Auto) 10.1L, Monocytes (%) (Auto) 9.1, Eosinophils (%) (Auto) 1.3, Basophils (%) (Auto) 1.2, Sodium Level 139, Potassium Level 3.6, Chloride Level 105, Carbon Dioxide Level 26, Anion Gap 8, Blood Urea Nitrogen 20H, Creatinine 1.1, Estimat Glomerular Filtration Rate > 60, Glucose Level 100, Calcium Level 8.1L, Total Bilirubin 0.4, Aspartate Amino Transf (AST/SGOT) 64H, Alanine Aminotransferase (ALT/SGPT) 97H, Alkaline Phosphatase 77, Total Protein 6.3L, Albumin 2.3L, Globulin 4.0, Albumin/Globulin Ratio 0.6L Height (Feet): 5 Height (Inches): 6.00 Weight (Pounds): 130 General Appearance: no apparent distress, alert EENT: normal ENT inspection Neck: normal alignment Cardiovascular: normal rate, regular rhythm Respiratory/Chest: lungs clear Abdomen: no organomegaly Edema: no edema noted Arm (L), no edema noted Arm (R), no edema noted Leg (L), no edema noted Leg (R), no edema noted Pedal (L), no edema noted Pedal (R), no edema noted Generalized Earle Jaramillo MD August 28, 2019 16:12
--- NOTE | 2019-08-28 19:42 | NUR ---
HAND-OFF: Report given to Yris ARCE.
[2019-08-28 20:00] VITALS: BP 127/66
--- NOTE | 2019-08-28 20:16 | NUR ---
NURSE NOTES: Received patient report from CLAUDE Collins. Patient shows no signs of distress or pain at this time. AOx4. IV checked and patent. No signs of erythema, infiltration, or bleeding. Bed is in the lowest position, call light within reach, side rails up x 3, bed brakes on. Will continue plan of care.
--- NOTE | 2019-08-28 20:28 | NUR ---
NURSE NOTES: Patients Covid test came back positive, called Dr. Rivera to inform of results.
[2019-08-28] MEDS: cefTRIAXone 1 GM in NS 55 ML IVPB SCH (20:43)
--- NOTE | 2019-08-28 21:31 | Infectious Diseases Prog Note ---
Assessment/Plan Assessment/Plan Full consult dictated: A) 1) CAP, fevers, leukocytosis 2) rule out covid-19 virus infection 3) possible sepsis P) 1) ceftriaxone and doxycycline 2) await covid19 virus infection 3) f/u labs and chest x-ray 4) will f/u Subjective Constitutional: Denies: fever HEENT: Denies: congestion Respiratory: Denies: shortness of breath Cardiovascular: Denies: chest pain Allergies: Coded Allergies: No Known Allergies (Unverified , 08/26/19) Objective Vital Signs Last 24 Hour Vital Signs Date Time Temp Pulse Resp B/P (MAP) Pulse Ox O2 Delivery O2 Flow Rate FiO2 08/28/19 16:00 65 08/28/19 15:37 98.2 79 20 101/66 (78) 96 08/28/19 12:00 96.3 75 20 109/61 (77) 94 08/28/19 12:00 73 08/28/19 09:00 Nasal Cannula 2.0 08/28/19 08:00 96.4 72 20 121/64 (83) 96 08/28/19 08:00 77 08/28/19 04:00 72 08/28/19 04:00 99.3 74 20 113/65 (81) 97 08/28/19 00:00 99.7 77 21 109/61 (77) 95 08/28/19 00:00 73 Height (Feet): 5 Height (Inches): 6.00 Weight (Pounds): 130 General Appearance: no acute distress HEENT: normocephalic, atraumatic, anicteric Respiratory/Chest: crackles/rales, rhonchi - bilaterally Cardiovascular: normal rate, regular rhythm Abdomen: normal bowel sounds, soft, non tender, non distended Microbiology Date/Time Source Procedure Growth Status 08/26/19 15:24 Blood Blood Culture - Preliminary NO GROWTH AFTER 24 HOURS Resulted 08/26/19 15:10 Blood Blood Culture - Preliminary NO GROWTH AFTER 24 HOURS Resulted Laboratory Tests Test 08/28/19 05:00 White Blood Count 6.9 K/UL (4.8-10.8) Red Blood Count 3.77 M/UL (4.70-6.10) L Hemoglobin 12.0 G/DL (14.2-18.0) L Hematocrit 33.1 % (42.0-52.0) L Mean Corpuscular Volume 88 FL (80-99) Mean Corpuscular Hemoglobin 31.9 PG (27.0-31.0) H Mean Corpuscular Hemoglobin Concent 36.3 G/DL (32.0-36.0) H Red Cell Distribution Width 10.2 % (11.6-14.8) L Platelet Count 223 K/UL (150-450) Mean Platelet Volume 6.2 FL (6.5-10.1) L Neutrophils (%) (Auto) 78.2 % (45.0-75.0) H Lymphocytes (%) (Auto) 10.1 % (20.0-45.0) L Monocytes (%) (Auto) 9.1 % (1.0-10.0) Eosinophils (%) (Auto) 1.3 % (0.0-3.0) Basophils (%) (Auto) 1.2 % (0.0-2.0) Sodium Level 139 MMOL/L (136-145) Potassium Level 3.6 MMOL/L (3.5-5.1) Chloride Level 105 MMOL/L (98-107) Carbon Dioxide Level 26 MMOL/L (21-32) Anion Gap 8 mmol/L (5-15) Blood Urea Nitrogen 20 mg/dL (7-18) H Creatinine 1.1 MG/DL (0.55-1.30) Estimat Glomerular Filtration Rate > 60 mL/min (>60) Glucose Level 100 MG/DL (74-106) Calcium Level 8.1 MG/DL (8.5-10.1) L Total Bilirubin 0.4 MG/DL (0.2-1.0) Aspartate Amino Transf (AST/SGOT) 64 U/L (15-37) H Alanine Aminotransferase (ALT/SGPT) 97 U/L (12-78) H Alkaline Phosphatase 77 U/L (46-116) Total Protein 6.3 G/DL (6.4-8.2) L Albumin 2.3 G/DL (3.4-5.0) L Globulin 4.0 g/dL Albumin/Globulin Ratio 0.6 (1.0-2.7) L Current Medications Medications (Trade) Dose Ordered Sig/Lucius Route PRN Reason Start Time Stop Time Status Last Admin Dose Admin Acetaminophen (Tylenol) 650 mg Q4H PRN ORAL Mild Pain (Pain Scale 1-3) 08/26/19 18:15 09/25/19 18:14 Acetaminophen (Tylenol) 650 mg Q4H PRN ORAL Temp >100.5 08/26/19 18:15 09/25/19 18:14 Albuterol Sulfate (Proventil MDI) 2 puff Q4H PRN INH Shortness of Breath 08/27/19 10:00 11/25/19 09:59 Aspirin (ASA) 81 mg DAILY ORAL 08/26/19 18:21 10/10/19 18:20 08/28/19 09:15 Ceftriaxone Sodium 1 gm/ Sodium Chloride 55 ml @ 110 mls/hr Q24H IVPB 08/26/19 21:00 09/02/19 20:59 08/28/19 20:43 Dextrose (Dextrose 50%) 25 ml Q30M PRN IV Hypoglycemia 08/26/19 18:15 11/24/19 18:14 Dextrose (Dextrose 50%) 50 ml Q30M PRN IV Hypoglycemia 08/26/19 18:15 11/24/19 18:14 Doxycycline Monohydrate (Doxycycline Monohydrate) 100 mg Q12HR ORAL 08/26/19 21:00 09/02/19 20:59 08/28/19 20:43 Enoxaparin Sodium (Lovenox) 60 mg Q24H SUBQ 08/27/19 14:00 11/25/19 13:59 08/28/19 13:08 Famotidine (Pepcid) 20 mg BID ORAL 08/27/19 09:00 11/25/19 08:59 08/28/19 17:59 Magnesium Hydroxide (Mom) 30 ml HSPRN PRN ORAL Constipation 08/26/19 18:15 09/25/19 18:14 Nitroglycerin (Ntg) 0.4 mg Q5M PRN SL Prn Chest Pain 08/26/19 18:15 09/25/19 18:14 Ondansetron HCl (Zofran) 4 mg Q6H PRN IVP Nausea & Vomiting 08/26/19 18:15 09/25/19 18:14 Sodium 1,000 ml @ 50 mls/hr Q20H IV 08/26/19 21:00 09/25/19 20:59 08/28/19 13:07 Marsha Rivera MD August 28, 2019 21:31
[2019-08-29] VITALS: BP 129/63
--- NOTE | 2019-08-29 | Consultation ---
DATE OF CONSULTATION: 08/28/2019 INFECTIOUS DISEASES CONSULTATION CONSULTING PHYSICIAN: Marsha Rivera MD. ATTENDING PHYSICIAN: Earle Jaramillo MD. REFERRING PHYSICIAN: Earle Jaramillo MD. REASON FOR CONSULTATION: Pneumonia, fevers, elevated white count, possible COVID-19 virus infection, pneumonia, possible community-acquired pneumonia. CHIEF COMPLAINT: The patient's chief complaint coming into the hospital is shortness of breath, hypoxia. HISTORY OF PRESENT ILLNESS: The patient is a 73-year-old male who comes into [facility] with hypoxia and shortness of breath. Chest x-ray showed bilateral pneumonia. The patient is being ruled out for COVID-19 virus infection, pneumonia. The patient also could have community-acquired pneumonia. Infectious Diseases consultation requested. I saw the patient yesterday, placed the patient on doxycycline and Rocephin. COVID-19 virus testing with regard to PCR is pending. The patient defervesced today. The patient also being seen by Pulmonary Medicine. MAR was noted. Order were noted. Notes and records were reviewed. Case discussed with RN and the patient. The patient is currently in COVID-19 virus isolation. REVIEW OF SYSTEMS: Main issue I discussed fevers and hypoxia. Currently, he feels well. No cough or shortness of breath. HEAD AND NECK: No head pain, neck pain, thrush, dysphagia, sinus tenderness, neck stiffness. CARDIAC: No chest pain or palpitations. GASTROINTESTINAL: No nausea, vomiting, abdominal pain, or diarrhea. GENITOURINARY: No dysuria or frequency. PULMONARY: He did have cough and congestion. SKIN: No rash or itching. EXTREMITIES: No extremity pain. NEUROLOGIC: No seizures. No focal changes. PAST MEDICAL HISTORY: The patient's past medical history includes the following: The patient has a past medical history of prostatectomy. The patient has a history of cardiovascular disease and BPH. No history of diabetes or hypertension mentioned. ALLERGIES: No known drug allergies. No antibiotic allergies. SOCIAL HISTORY: Negative for smoking, alcohol, or drug abuse. FAMILY HISTORY: Noncontributory. Negative for tuberculosis or cancer. MEDICATIONS: Upon reviewing the MAR, he is on following medications. He is on abx , famotidine, Rocephin, doxycycline, aspirin, nitroglycerin as needed, acetaminophen, magnesium hydroxide, Zofran. Outside medications were noted and reconciliated. PHYSICAL EXAMINATION: VITAL SIGNS: Temperature is 98.2, pulse rate 79, respiratory rate 20, blood pressure 101/66, O2 saturation 96%. T-max was 102.4. Pulse rate as high as 94. GENERAL: Alert and responsive, no acute distress. HEAD AND NECK: Oral exam, no thrush. Eye exam, no icterus. Normocephalic. Neck is supple. HEART: Regular. No gallop or murmur. No friction rub. ABDOMEN: Soft. Positive bowel sounds. Nontender. LUNGS: Bilateral rhonchi and rales. SKIN: No rashes. MUSCULOSKELETAL: No effusion. Legs are without cellulitis. PERIPHERAL VASCULAR: No cyanosis or gangrene. GENITOURINARY: No Millard. LINES: Lines sites are without phlebitis. NEUROLOGIC: Intact. Nonfocal. Alert and oriented. LABORATORY AND DIAGNOSTIC DATA: So far blood cultures are negative. UA had only 2 to 4 white cells. Blood cultures negative. Imaging studies, chest x-ray shows bibasilar infiltrates, right greater than left. COVID-19 PCR testing is pending. Creatinine 1.1. White count 6.9, hemoglobin 12.0. White count on admission 11.0. LFTs were elevated. Of note, patient has low lymphocytes. ASSESSMENT AND PLAN: 1. The patient has pneumonia and has high suspicion for COVID-19 virus infection with pneumonia, rule out community-acquired pneumonia, fevers, elevated white count. Fevers have improved on Rocephin and doxycycline to treat community-acquired pneumonia. The patient's respiratory status seems to be stable. We will hold off on giving hydroxychloroquine at this time unless becomes more hypoxic. At this time, we will continue Rocephin and doxycycline for community-acquired pneumonia. Await COVID-19 virus infection testing with PCR. Continue isolation for now. This is day #2 Rocephin and doxycycline. Check followup laboratories and chest x-ray. Followup on COVID-19 virus testing. Check followup labs and chest x-ray. 2. BPH. 3. Prostatectomy. 4. Cardiovascular disease. 5. No history of diabetes or hypertension. 6. The patient did have elevated lactic acid, possible sepsis with fevers, SIRS criteria. 7. No known drug allergies. 8. Social history is negative. 9. Family history is noncontributory. 10. MAR was noted. 11. Case discussed with RN. 12. Continue treatment per primary consultants. Marsha Rivera M.D. DR: Marichuy JOB#: [id number] CC: MECHELLE
[2019-08-29 04:00] VITALS: BP 131/73
--- NOTE | 2019-08-29 07:38 | NUR ---
NURSE NOTES: Received report from CLAUDE Arndt. Patient is in bed resting, denies any pain at this time. No s/s of respiratory or acute distress at this time. Patient AAOx 4, able to follow commands. Awake, alert, and responsive. IV is intact, patent and flushed, running fluid and patient tolerating well. Patient is on 2L nasal cannula, saturating at 94% . Bed in lowest position, brakes engaged for safety, bed rails raised x2. Call light is within reach. Will continue with the plan of care.
--- NOTE | 2019-08-29 07:50 | NUR ---
HAND-OFF: Report given to CLAUDE Elkins. Patient shows no signs of distress at the time. Endorsed plan of care.
[2019-08-29 08:00] VITALS: BP 128/72
--- NOTE | 2019-08-29 08:13 | Pulmonology Progress Note ---
Luciana Caceres CONCRETE ANALYST 08/29/19 0813: Assessment/Plan Assessment/Plan ASSESSMENT Confirmed COVID 19 infection Probably sepsis ( with fevers, leukocytosis, lactic acidosis and evidence of infection) PNA Hypoxia Transaminitis ALEC FTT , probably due to protein calorie malnutrition PLAN OF CARE tele isolation SARS-CoV-2 by PCR detected agree with empiric Ceftriaxone and Doxycycline for now fup with cx BCX NGTD, leuk and fevers resolved CXR 08/27 - Slight interim increase in bilateral right greater than left infiltrates, likely pneumonia, over 2 days O2 titrate to keep sat above 90% , stable on 2 L via NC MDI DVT prophylaxis fup with CXR in few days ASA resumed gentle IV hydration monitor renal paramerts, lytes, correct as needed trend LFT-> trending down abd US pending GI prophylaxis dietary eval re protein supplements case discussed and evaluated by supervising physician Subjective Constitutional: Denies: fever Allergies: Coded Allergies: No Known Allergies (Unverified , 08/26/19) Subjective afebrile pulse ox stable on O2 2 L via NC no signs of resp distress. no use of accessory muscles CXR 08/27 with evidence of PNA SARS-CoV-2 by PCR detected Objective Last 24 Hour Vital Signs Date Time Temp Pulse Resp B/P (MAP) Pulse Ox O2 Delivery O2 Flow Rate FiO2 08/29/19 04:00 97.2 80 18 131/73 (92) 94 08/29/19 04:00 71 08/29/19 00:00 101 08/29/19 00:00 97.1 77 18 129/63 (85) 94 08/28/19 21:00 Nasal Cannula 2.0 08/28/19 20:38 95 Nasal Cannula 2.0 28 08/28/19 20:00 78 08/28/19 20:00 97.3 79 18 127/66 (86) 94 08/28/19 16:00 65 08/28/19 15:37 98.2 79 20 101/66 (78) 96 08/28/19 12:00 96.3 75 20 109/61 (77) 94 08/28/19 12:00 73 08/28/19 09:00 Nasal Cannula 2.0 Intake and Output 08/28/19 08/29/19 19:00 07:00 Intake Total 1030 ml Output Total 325 ml Balance 705 ml Intake Oral 480 ml IV Total 550 ml Output Urine Total 325 ml # Bowel Movements 2 Objective General Appearance: no apparent distress, alert , awake elderly male , forgetful Lines, tubes and drains: peripheral HEENT: normocephalic, atraumatic, anicteric, mucous membranes moist, PERRL, O2 via NC Neck: non-tender, supple Respiratory/Chest: few isolated rhonchi , no respiratory distress, no accessory muscle use Cardiovascular/Chest: normal rate, regular rhythm Abdomen: normal bowel sounds, soft Extremities: no calf tenderness, non-pitting Neurologic: alert, responsive , forgetful Musculoskeletal: atrophy BLE Microbiology Date/Time Source Procedure Growth Status 08/26/19 15:24 Blood Blood Culture - Preliminary NO GROWTH AFTER 48 HOURS Resulted 08/26/19 15:10 Blood Blood Culture - Preliminary NO GROWTH AFTER 48 HOURS Resulted 08/26/19 15:25 Nasopharynx Coronavirus COVID-19 PCR (RAVI) - Final Complete Current Medications Medications (Trade) Dose Ordered Sig/Lucius Route PRN Reason Start Time Stop Time Status Last Admin Dose Admin Acetaminophen (Tylenol) 650 mg Q4H PRN ORAL Mild Pain (Pain Scale 1-3) 08/26/19 18:15 09/25/19 18:14 Acetaminophen (Tylenol) 650 mg Q4H PRN ORAL Temp >100.5 08/26/19 18:15 09/25/19 18:14 Albuterol Sulfate (Proventil MDI) 2 puff Q4H PRN INH Shortness of Breath 08/27/19 10:00 11/25/19 09:59 Aspirin (ASA) 81 mg DAILY ORAL 08/26/19 18:21 10/10/19 18:20 08/28/19 09:15 Ceftriaxone Sodium 1 gm/ Sodium Chloride 55 ml @ 110 mls/hr Q24H IVPB 08/26/19 21:00 09/02/19 20:59 08/28/19 20:43 Dextrose (Dextrose 50%) 25 ml Q30M PRN IV Hypoglycemia 08/26/19 18:15 11/24/19 18:14 Dextrose (Dextrose 50%) 50 ml Q30M PRN IV Hypoglycemia 08/26/19 18:15 11/24/19 18:14 Doxycycline Monohydrate (Doxycycline Monohydrate) 100 mg Q12HR ORAL 08/26/19 21:00 09/02/19 20:59 08/28/19 20:43 Enoxaparin Sodium (Lovenox) 60 mg Q24H SUBQ 08/27/19 14:00 11/25/19 13:59 08/28/19 13:08 Famotidine (Pepcid) 20 mg BID ORAL 08/27/19 09:00 11/25/19 08:59 08/28/19 17:59 Magnesium Hydroxide (Mom) 30 ml HSPRN PRN ORAL Constipation 08/26/19 18:15 09/25/19 18:14 Nitroglycerin (Ntg) 0.4 mg Q5M PRN SL Prn Chest Pain 08/26/19 18:15 09/25/19 18:14 Ondansetron HCl (Zofran) 4 mg Q6H PRN IVP Nausea & Vomiting 08/26/19 18:15 09/25/19 18:14 Sodium 1,000 ml @ 50 mls/hr Q20H IV 08/26/19 21:00 09/25/19 20:59 08/28/19 13:07 Yunier Decker MD 08/29/19 1201: Assessment/Plan Assessment/Plan Patient seen and examined with CONCRETE ANALYST, agree with above A&P as it reflects our joint deliberations. COVID + Supportive care O2 HFA's Abx per ID LMWH Subjective Allergies: Coded Allergies: No Known Allergies (Unverified , 08/26/19) Luciana Caceres CONCRETE ANALYST August 29, 2019 08:13 Yunier Decker MD August 29, 2019 12:01
[2019-08-29] MEDS: Doxycycline Monohydrate 100mg ORAL SCH ×2 (08:51→20:33)
[2019-08-29] MEDS: Aspirin Baby 81mg ORAL SCH (08:51)
[2019-08-29] MEDS: 1/2NS w/KCl 20mEq 1000ml 1,000 ML IV SCH (08:51)
--- NOTE | 2019-08-29 10:10 | NUR ---
RD ASSESSMENT & RECOMMENDATIONS SEE CARE ACTIVITY FOR COMPLETE ASSESSMENT DAILY ESTIMATED NEEDS: Needs based on sepsis/ 68kg 25-30 kcals/kg 9680-3155 total kcals 1-2 g protein/kg 68-136 g total protein 25-30 mL/kg 9084-9454 total fluid mLs NUTRITION DIAGNOSIS: Inadequate oral intake R/T decreased appetite, clinical condition, specific food preferences? as evidenced by 0-25% intake of meals, admitted w/ c/o FTT. CURRENT DIET:REGULAR PO DIET RECOMMENDATIONS: Maintain liberalized REGULAR w/ poor PO/ texture per PRODUCT BLENDING SUPERVISOR ADDITIONAL RECOMMENDATIONS: * Per assisted living [facility]: Wt from August = 150lbs * [place] s/w or cheese s/w on all meals -> per [facility] administrator at assisted living [facility], pt only liked eating turkey or cheese s/w as long as pt has been residing at the facility * MVI x 1 as supplement * Ensure Enlive once daily for now, monitor acceptance, need to increase
--- NOTE | 2019-08-29 11:54 | General Progress Note ---
Assessment/Plan Problem List: (1) Healthcare-associated pneumonia ICD Codes: J18.9 - Pneumonia, unspecified organism SNOMED: 144677791, 198633558 (2) Suspected 2019 novel coronavirus infection ICD Codes: Z20.828 - Contact with and (suspected) exposure to other viral communicable diseases SNOMED: 410784463 (3) Coronary arteriosclerosis ICD Codes: I25.10 - Atherosclerotic heart disease of [place] coronary artery without angina pectoris SNOMED: 70458195 Assessment/Plan: alessandra hurst supportive care Subjective Constitutional: Reports: weakness HEENT: Reports: no symptoms Cardiovascular: Reports: no symptoms Respiratory: Reports: SOB with excertion Gastrointestinal/Abdominal: Reports: no symptoms, poor appetite Genitourinary: Reports: no symptoms Neurologic/Psychiatric: Reports: no symptoms Hematologic/Lymphatic: Reports: no symptoms Allergies: Coded Allergies: No Known Allergies (Unverified , 08/26/19) Objective Last 24 Hour Vital Signs Date Time Temp Pulse Resp B/P (MAP) Pulse Ox O2 Delivery O2 Flow Rate FiO2 08/29/19 09:00 Nasal Cannula 2.0 08/29/19 08:00 77 08/29/19 08:00 97.3 76 20 128/72 (90) 94 08/29/19 04:00 97.2 80 18 131/73 (92) 94 08/29/19 04:00 71 08/29/19 00:00 101 08/29/19 00:00 97.1 77 18 129/63 (85) 94 08/28/19 21:00 Nasal Cannula 2.0 08/28/19 20:38 95 Nasal Cannula 2.0 28 08/28/19 20:00 78 08/28/19 20:00 97.3 79 18 127/66 (86) 94 08/28/19 16:00 65 08/28/19 15:37 98.2 79 20 101/66 (78) 96 08/28/19 12:00 96.3 75 20 109/61 (77) 94 08/28/19 12:00 73 Intake and Output 08/28/19 08/29/19 19:00 07:00 Intake Total 1030 ml Output Total 325 ml Balance 705 ml Intake Oral 480 ml IV Total 550 ml Output Urine Total 325 ml # Bowel Movements 2 Height (Feet): 5 Height (Inches): 6.00 Weight (Pounds): 130 General Appearance: no apparent distress EENT: normal ENT inspection Neck: normal alignment Cardiovascular: regular rhythm Respiratory/Chest: lungs clear Abdomen: non tender, soft Edema: no edema noted Arm (L), no edema noted Arm (R), no edema noted Leg (L), no edema noted Leg (R), no edema noted Pedal (L), no edema noted Pedal (R), no edema noted Generalized Earle Jaramillo MD August 29, 2019 11:54
[2019-08-29 12:00] VITALS: BP 116/63
[2019-08-29] MEDS: Enoxaparin 60mg Inj SUBQ SCH (14:38)
[2019-08-29 16:00] VITALS: BP 116/81
--- NOTE | 2019-08-29 19:09 | NUR ---
HAND-OFF: Report given to Yris ARCE. Patient is in stable condition.
[2019-08-29 20:00] VITALS: BP 131/79
--- NOTE | 2019-08-29 20:13 | NUR ---
NURSE NOTES: Received patient report from CLAUDE Elkins. Patient shows no signs of distress or pain. AOx1. IV is intact and patent. There are no signs of erythema, bleeding, or infiltration. Bed is in the lowest position, call light is within reach, bed brakes on. Will continue plan of care.
[2019-08-29] MEDS: cefTRIAXone 1 GM in NS 55 ML IVPB SCH (20:33)
[2019-08-30] VITALS: BP 125/74
[2019-08-30 04:00] VITALS: BP 124/63
[2019-08-30] MEDS: 1/2NS w/KCl 20mEq 1000ml 1,000 ML IV SCH (05:53)
--- NOTE | 2019-08-30 07:25 | NUR ---
NURSE NOTES: Received report from CLAUDE Arndt. Patient is in bed resting, denies any pain at this time. No s/s of respiratory or acute distress at this time. Patient AAOx 4, able to follow commands. Awake, alert, and responsive. IV is intact, patent and flushed, running fluid and patient tolerating well. Patient is on 2L nasal cannula Bed in lowest position, brakes engaged for safety, bed rails raised x2. Call light is within reach. Will continue with the plan of care.
[2019-08-30 08:00] VITALS: BP_SYST 121; BP_SYST 124; BP_DIAS 64; BP_DIAS 69
[2019-08-30 08:04] LABS: ANION GAP 8 mmol/L (5-15); BLOOD UREA NITROGEN 12 mg/dL (7-18); CARBON DIOXIDE 26 MMOL/L (21-32); CHLORIDE 104 MMOL/L (98-107); POTASSIUM 3.8 MMOL/L (3.5-5.1); SODIUM 138 MMOL/L (136-145)
[2019-08-30 08:06] LABS: HEMATOCRIT 30.5 % (42.0-52.0); MEAN CORPUSCULAR VOLUME 88 FL (80-99); PLATELET COUNT 289 K/UL (150-450); RED BLOOD COUNT 3.45 M/UL (4.70-6.10); RED CELL DISTRIBUTION WIDTH 10.2 % (11.6-14.8); WHITE BLOOD COUNT 6.1 K/UL (4.8-10.8)
--- NOTE | 2019-08-30 08:09 | NUR ---
HAND-OFF: Report given to CLAUDE Elkins. Patient shows no signs of distress at the tiome. Endorsed plan of care.
[2019-08-30] MEDS: Aspirin Baby 81mg ORAL SCH (08:37)
[2019-08-30] MEDS: Doxycycline Monohydrate 100mg ORAL SCH ×2 (08:38→21:00)
[2019-08-30 12:00] VITALS: BP 115/70
--- NOTE | 2019-08-30 12:16 | NUR ---
CASE MANAGEMENT:REVIEW 08/30/19 SI: COVID 19 PNA 97.7 89 18 121/64 95% ON 2L/NC H/H-11.0/30.5 CA-8.0 IS: IV ROCEPHIN Q24 IVF@50/HR DOXYCYCLINE PO Q12 LOVENOX SQ Q24 PEPCID PO BID ASA PO QD : TELEMETRY STATUS DCP: PATIENT IS FROM [facility] Addendum: 08/30/19 at 1225 by BROCK HOLLEYN LAST TEMP 08/27/19 T~100.1 08/28/19 T~99.7
[2019-08-30] MEDS: Enoxaparin 60mg Inj SUBQ SCH (13:31)
--- NOTE | 2019-08-30 13:41 | Pulmonology Progress Note ---
Luciana Caceres [employer]IST 08/30/19 1340: Assessment/Plan Assessment/Plan ASSESSMENT Confirmed COVID 19 infection Probably sepsis ( with fevers, leukocytosis, lactic acidosis and evidence of infection) PNA Hypoxia Transaminitis ALEC FTT , probably due to protein calorie malnutrition PLAN OF CARE tele SARS-CoV-2 by PCR detected keep in isolation continue empiric Ceftriaxone and Doxycycline fup with cx BCX NGTD, leuk and fevers resolved ID on board now CXR 08/27 - Slight interim increase in bilateral right greater than left infiltrates, likely pneumonia, over 2 days O2 titrate to keep sat above 90% , stable on 2 L via NC MDI DVT prophylaxis fup with CXR in few days ASA resumed gentle IV hydration monitor renal paramerts, lytes, correct as needed trend LFT-> trending down abd US pending GI prophylaxis dietary eval re protein supplements case discussed and evaluated by supervising physician Subjective Constitutional: Denies: fever Allergies: Coded Allergies: No Known Allergies (Unverified , 08/26/19) Subjective afebrile pulse ox stable on O2 2 L via NC no signs of resp distress. no use of accessory muscles CXR 08/27 with evidence of PNA SARS-CoV-2 by PCR detected , remains in isolation Objective Last 24 Hour Vital Signs Date Time Temp Pulse Resp B/P (MAP) Pulse Ox O2 Delivery O2 Flow Rate FiO2 08/30/19 09:00 Nasal Cannula 2.0 08/30/19 08:00 70 08/30/19 08:00 97.7 89 18 121/64 (83) 95 08/30/19 08:00 97.7 70 18 124/69 (87) 99 08/30/19 04:00 97.2 68 18 124/63 (83) 96 08/30/19 04:00 70 08/30/19 00:00 76 08/30/19 00:00 97.7 83 18 125/74 (91) 95 08/29/19 21:00 Nasal Cannula 2.0 08/29/19 20:00 98.9 79 19 131/79 (96) 92 08/29/19 16:00 97.1 89 18 116/81 (93) 94 08/29/19 16:00 60 Intake and Output 08/29/19 08/30/19 19:00 07:00 Intake Total 600 ml Output Total 400 ml Balance 200 ml Intake Oral 600 ml Output Urine Total 400 ml # Bowel Movements 2 Objective General Appearance: no apparent distress, alert , awake elderly male , forgetful Lines, tubes and drains: peripheral HEENT: normocephalic, atraumatic, anicteric, mucous membranes moist, PERRL, O2 via NC Neck: non-tender, supple Respiratory/Chest: few isolated rhonchi , no respiratory distress, no accessory muscle use Cardiovascular/Chest: normal rate, regular rhythm Abdomen: normal bowel sounds, soft Extremities: no calf tenderness, non-pitting Neurologic: alert, responsive , forgetful Musculoskeletal: atrophy BLE Laboratory Tests 08/30/19 06:40: White Blood Count 6.1, Red Blood Count 3.45L, Hemoglobin 11.0L, Hematocrit 30.5L , Mean Corpuscular Volume 88, Mean Corpuscular Hemoglobin 31.8H, Mean Corpuscular Hemoglobin Concent 36.1H, Red Cell Distribution Width 10.2L, Platelet Count 289, Mean Platelet Volume 6.2L, Neutrophils (%) (Auto) , Lymphocytes (%) (Auto) , Monocytes (%) (Auto) , Eosinophils (%) (Auto) , Basophils (%) (Auto) , Differential Total Cells Counted 100, Neutrophils % ( Manual) 82H, Lymphocytes % (Manual) 7L, Monocytes % (Manual) 11H, Eosinophils % (Manual) 0, Basophils % (Manual) 0, Band Neutrophils 0, Platelet Estimate Adequate, Platelet Morphology Normal, Red Blood Cell Morphology Normal, Sodium Level 138, Potassium Level 3.8, Chloride Level 104, Carbon Dioxide Level 26, Anion Gap 8, Blood Urea Nitrogen 12, Creatinine 1.0, Estimat Glomerular Filtration Rate > 60, Glucose Level 97, Calcium Level 8.0L Current Medications Medications (Trade) Dose Ordered Sig/Lucius Route PRN Reason Start Time Stop Time Status Last Admin Dose Admin Acetaminophen (Tylenol) 650 mg Q4H PRN ORAL Mild Pain (Pain Scale 1-3) 08/26/19 18:15 09/25/19 18:14 Acetaminophen (Tylenol) 650 mg Q4H PRN ORAL Temp >100.5 08/26/19 18:15 09/25/19 18:14 Albuterol Sulfate (Proventil MDI) 2 puff Q4H PRN INH Shortness of Breath 08/27/19 10:00 11/25/19 09:59 Aspirin (ASA) 81 mg DAILY ORAL 08/26/19 18:21 10/10/19 18:20 08/30/19 08:37 Ceftriaxone Sodium 1 gm/ Sodium Chloride 55 ml @ 110 mls/hr Q24H IVPB 08/26/19 21:00 09/02/19 20:59 08/29/19 20:33 Dextrose (Dextrose 50%) 25 ml Q30M PRN IV Hypoglycemia 08/26/19 18:15 11/24/19 18:14 Dextrose (Dextrose 50%) 50 ml Q30M PRN IV Hypoglycemia 08/26/19 18:15 11/24/19 18:14 Doxycycline Monohydrate (Doxycycline Monohydrate) 100 mg Q12HR ORAL 08/26/19 21:00 09/02/19 20:59 08/30/19 08:38 Enoxaparin Sodium (Lovenox) 60 mg Q24H SUBQ 08/27/19 14:00 11/25/19 13:59 08/30/19 13:31 Famotidine (Pepcid) 20 mg BID ORAL 08/27/19 09:00 11/25/19 08:59 08/30/19 08:37 Magnesium Hydroxide (Mom) 30 ml HSPRN PRN ORAL Constipation 08/26/19 18:15 09/25/19 18:14 Nitroglycerin (Ntg) 0.4 mg Q5M PRN SL Prn Chest Pain 08/26/19 18:15 09/25/19 18:14 Ondansetron HCl (Zofran) 4 mg Q6H PRN IVP Nausea & Vomiting 08/26/19 18:15 09/25/19 18:14 Sodium 1,000 ml @ 50 mls/hr Q20H IV 08/26/19 21:00 09/25/19 20:59 08/30/19 05:53 Yunier Decker MD 08/30/19 6995: Assessment/Plan Assessment/Plan PATIENT SEEN AND EXAMINED WITH [employer] MEDIA SPECIALIST, AGREE WITH ABOVE A&P IT REFLECTS OUR JOINT DELIBERATIONS. AFVSS ON 2L, CLINICALLY STABLE, SUPPORTIVE CARE, TITRATE O2, HFA'S, CTX/DOXY, LMWH Subjective Allergies: Coded Allergies: No Known Allergies (Unverified , 08/26/19) Luciana Caceres NP August 30, 2019 13:40 Yunier Decker MD August 30, 2019 18:26
[2019-08-30 16:00] VITALS: BP 119/70
--- NOTE | 2019-08-30 19:35 | NUR ---
HAND-OFF: Report given to Farhana ARCE. Patient is in stable condition.
--- NOTE | 2019-08-30 19:50 | NUR ---
NURSE NOTES: Received pt from CLAUDE Elkins. Pt asleep. Bed in lowest position. Call light within reach. Will continue to monitor.
[2019-08-30 20:00] VITALS: BP 128/77
--- NOTE | 2019-08-30 20:12 | General Progress Note ---
Assessment/Plan Problem List: (1) Healthcare-associated pneumonia ICD Codes: J18.9 - Pneumonia, unspecified organism SNOMED: 074221399, [id number] (2) Suspected 2019 novel coronavirus infection ICD Codes: Z20.828 - Contact with and (suspected) exposure to other viral communicable diseases SNOMED: 323708686 (3) Coronary arteriosclerosis ICD Codes: I25.10 - Atherosclerotic heart disease of [place] coronary artery without angina pectoris SNOMED: 19972036 Assessment/Plan: alessandra hurst supportive care covid +, consults appreciated, hydration Subjective Constitutional: Reports: weakness HEENT: Reports: no symptoms Cardiovascular: Reports: no symptoms Respiratory: Reports: SOB with excertion Gastrointestinal/Abdominal: Reports: no symptoms, poor appetite Genitourinary: Reports: no symptoms Neurologic/Psychiatric: Reports: no symptoms Endocrine: Reports: no symptoms Allergies: Coded Allergies: No Known Allergies (Unverified , 08/26/19) Objective Last 24 Hour Vital Signs Date Time Temp Pulse Resp B/P (MAP) Pulse Ox O2 Delivery O2 Flow Rate FiO2 08/30/19 16:00 98.6 67 19 119/70 (86) 97 08/30/19 16:00 75 08/30/19 12:00 74 08/30/19 12:00 97.2 74 19 115/70 (85) 97 08/30/19 09:00 Nasal Cannula 2.0 08/30/19 08:00 70 08/30/19 08:00 97.7 89 18 121/64 (83) 95 08/30/19 08:00 97.7 70 18 124/69 (87) 99 08/30/19 04:00 97.2 68 18 124/63 (83) 96 08/30/19 04:00 70 08/30/19 00:00 76 08/30/19 00:00 97.7 83 18 125/74 (91) 95 08/29/19 21:00 Nasal Cannula 2.0 Intake and Output 08/29/19 08/30/19 19:00 07:00 Intake Total 600 ml Output Total 400 ml Balance 200 ml Intake Oral 600 ml Output Urine Total 400 ml # Bowel Movements 2 Laboratory Tests 08/30/19 06:40: White Blood Count 6.1, Red Blood Count 3.45L, Hemoglobin 11.0L, Hematocrit 30.5L , Mean Corpuscular Volume 88, Mean Corpuscular Hemoglobin 31.8H, Mean Corpuscular Hemoglobin Concent 36.1H, Red Cell Distribution Width 10.2L, Platelet Count 289, Mean Platelet Volume 6.2L, Neutrophils (%) (Auto) , Lymphocytes (%) (Auto) , Monocytes (%) (Auto) , Eosinophils (%) (Auto) , Basophils (%) (Auto) , Differential Total Cells Counted 100, Neutrophils % ( Manual) 82H, Lymphocytes % (Manual) 7L, Monocytes % (Manual) 11H, Eosinophils % (Manual) 0, Basophils % (Manual) 0, Band Neutrophils 0, Platelet Estimate Adequate, Platelet Morphology Normal, Red Blood Cell Morphology Normal, Sodium Level 138, Potassium Level 3.8, Chloride Level 104, Carbon Dioxide Level 26, Anion Gap 8, Blood Urea Nitrogen 12, Creatinine 1.0, Estimat Glomerular Filtration Rate > 60, Glucose Level 97, Calcium Level 8.0L Height (Feet): 5 Height (Inches): 6.00 Weight (Pounds): 120 General Appearance: alert EENT: normal ENT inspection Neck: normal alignment Cardiovascular: normal rate Respiratory/Chest: lungs clear Abdomen: no organomegaly Edema: no edema noted Arm (L), no edema noted Arm (R), no edema noted Leg (L), no edema noted Leg (R), no edema noted Pedal (L), no edema noted Pedal (R), no edema noted 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
--- NOTE | 2019-08-30 20:41 | Infectious Diseases Prog Note ---
Assessment/Plan Assessment/Plan ASSESSMENT AND PLAN: 1. covid-19 virus infection and pna, pcr +, ? cap, sepsis, fevers, leukocytosis - rocephin and doxycycline - day # 4/7 - clinically stable, fevers resolved - no indication for hydroxychloroquine - monitor labs and chest x-ray 2. BPH. 3. Prostatectomy. 4. Cardiovascular disease. 5. No history of diabetes or hypertension. 6. The patient did have elevated lactic acid, possible sepsis with fevers, SIRS criteria. 7. No known drug allergies. 8. Social history is negative. 9. Family history is noncontributory. 10. MAR was noted. 11. Case discussed with RN. 12. Continue treatment per primary consultants. Subjective Constitutional: Reports: fatigue; Denies: fever HEENT: Denies: congestion Respiratory: Denies: shortness of breath Cardiovascular: Denies: chest pain Gastrointestinal/Abdominal: Reports: diarrhea; Denies: nausea, vomiting Genitourinary: Denies: dysuria, hematuria, frequency Neurologic: Denies: headache Psychiatric: Denies: depression Skin: Denies: rash Hematologic: Denies: bleeding Musculoskeletal: Denies: pain Allergies: Coded Allergies: No Known Allergies (Unverified , 08/26/19) Objective Vital Signs Last 24 Hour Vital Signs Date Time Temp Pulse Resp B/P (MAP) Pulse Ox O2 Delivery O2 Flow Rate FiO2 08/30/19 16:00 98.6 67 19 119/70 (86) 97 08/30/19 16:00 75 08/30/19 12:00 74 08/30/19 12:00 97.2 74 19 115/70 (85) 97 08/30/19 09:00 Nasal Cannula 2.0 08/30/19 08:00 70 08/30/19 08:00 97.7 89 18 121/64 (83) 95 08/30/19 08:00 97.7 70 18 124/69 (87) 99 08/30/19 04:00 97.2 68 18 124/63 (83) 96 08/30/19 04:00 70 08/30/19 00:00 76 08/30/19 00:00 97.7 83 18 125/74 (91) 95 08/29/19 21:00 Nasal Cannula 2.0 Height (Feet): 5 Height (Inches): 6.00 Weight (Pounds): 120 General Appearance: no acute distress HEENT: normocephalic, atraumatic, anicteric, mucous membranes moist Respiratory/Chest: lungs clear, normal breath sounds, no respiratory distress, no accessory muscle use Cardiovascular: normal rate, regular rhythm, no gallop/murmur, no JVD Abdomen: normal bowel sounds, soft, non tender, no organomegaly, non distended Genitourinary: other - no pablo Extremities: no cyanosis Skin: no rash 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 Reticular retrocardiac an peripheral left midlung opacities are slightly more prominent. Impression: Slight interim increase in bilateral right greater than left infiltrates, likely pneumonia, over 2 days Microbiology Date/Time Source Procedure Growth Status 08/26/19 15:24 Blood Blood Culture - Preliminary NO GROWTH AFTER 72 HOURS Resulted 08/26/19 19:00 Nasal Nares MRSA Culture - Final NO METHICILLIN RESISTANT STAPH AUREUS... Complete 08/26/19 19:10 Rectum VRE Culture - Final NO VANCOMYCIN RESISTANT ENTEROCOCCUS ... Complete Laboratory Tests Test 08/30/19 06:40 White Blood Count 6.1 K/UL (4.8-10.8) Red Blood Count 3.45 M/UL (4.70-6.10) L Hemoglobin 11.0 G/DL (14.2-18.0) L Hematocrit 30.5 % (42.0-52.0) L Mean Corpuscular Volume 88 FL (80-99) Mean Corpuscular Hemoglobin 31.8 PG (27.0-31.0) H Mean Corpuscular Hemoglobin Concent 36.1 G/DL (32.0-36.0) H Red Cell Distribution Width 10.2 % (11.6-14.8) L Platelet Count 289 K/UL (150-450) Mean Platelet Volume 6.2 FL (6.5-10.1) L Neutrophils (%) (Auto) % (45.0-75.0) Lymphocytes (%) (Auto) % (20.0-45.0) Monocytes (%) (Auto) % (1.0-10.0) Eosinophils (%) (Auto) % (0.0-3.0) Basophils (%) (Auto) % (0.0-2.0) Differential Total Cells Counted 100 Neutrophils % (Manual) 82 % (45-75) H Lymphocytes % (Manual) 7 % (20-45) L Monocytes % (Manual) 11 % (1-10) H Eosinophils % (Manual) 0 % (0-3) Basophils % (Manual) 0 % (0-2) Band Neutrophils 0 % (0-8) Platelet Estimate Adequate Platelet Morphology Normal Red Blood Cell Morphology Normal Sodium Level 138 MMOL/L (136-145) Potassium Level 3.8 MMOL/L (3.5-5.1) Chloride Level 104 MMOL/L (98-107) Carbon Dioxide Level 26 MMOL/L (21-32) Anion Gap 8 mmol/L (5-15) Blood Urea Nitrogen 12 mg/dL (7-18) Creatinine 1.0 MG/DL (0.55-1.30) Estimat Glomerular Filtration Rate > 60 mL/min (>60) Glucose Level 97 MG/DL (74-106) Calcium Level 8.0 MG/DL (8.5-10.1) L Current Medications Medications (Trade) Dose Ordered Sig/Lucius Route PRN Reason Start Time Stop Time Status Last Admin Dose Admin Acetaminophen (Tylenol) 650 mg Q4H PRN ORAL Mild Pain (Pain Scale 1-3) 08/26/19 18:15 09/25/19 18:14 Acetaminophen (Tylenol) 650 mg Q4H PRN ORAL Temp >100.5 08/26/19 18:15 09/25/19 18:14 Albuterol Sulfate (Proventil MDI) 2 puff Q4H PRN INH Shortness of Breath 08/27/19 10:00 11/25/19 09:59 Aspirin (ASA) 81 mg DAILY ORAL 08/26/19 18:21 10/10/19 18:20 08/30/19 08:37 Ceftriaxone Sodium 1 gm/ Sodium Chloride 55 ml @ 110 mls/hr Q24H IVPB 08/26/19 21:00 09/02/19 20:59 5/5/20 20:33 Dextrose (Dextrose 50%) 25 ml Q30M PRN IV Hypoglycemia 08/26/19 18:15 11/24/19 18:14 Dextrose (Dextrose 50%) 50 ml Q30M PRN IV Hypoglycemia 08/26/19 18:15 11/24/19 18:14 Doxycycline Monohydrate (Doxycycline Monohydrate) 100 mg Q12HR ORAL 08/26/19 21:00 09/02/19 20:59 08/30/19 08:38 Enoxaparin Sodium (Lovenox) 60 mg Q24H SUBQ 08/27/19 14:00 11/25/19 13:59 08/30/19 13:31 Famotidine (Pepcid) 20 mg BID ORAL 08/27/19 09:00 11/25/19 08:59 08/30/19 17:12 Magnesium Hydroxide (Mom) 30 ml HSPRN PRN ORAL Constipation 08/26/19 18:15 09/25/19 18:14 Nitroglycerin (Ntg) 0.4 mg Q5M PRN SL Prn Chest Pain 08/26/19 18:15 09/25/19 18:14 Ondansetron HCl (Zofran) 4 mg Q6H PRN IVP Nausea & Vomiting 08/26/19 18:15 09/25/19 18:14 Sodium 1,000 ml @ 50 mls/hr Q20H IV 08/26/19 21:00 09/25/19 20:59 08/30/19 05:53 Marsha Rivera MD August 30, 2019 20:41
[2019-08-30] MEDS: cefTRIAXone 1 GM in NS 55 ML IVPB SCH (21:25)
[2019-08-31] VITALS: BP 120/62
[2019-08-31] MEDS: 1/2NS w/KCl 20mEq 1000ml 1,000 ML IV SCH ×2 (01:19→21:31)
[2019-08-31 04:00] VITALS: BP 115/64
--- NOTE | 2019-08-31 07:55 | NUR ---
HAND-OFF: Report given to CLAUDE Collins. Pt stable. Addendum: 08/31/19 at 1934 by Farhana Thomason RN Also reported that CLAUDE Elkins reported to me that she would cancel the order to remove condom cath because Dr. Jaramillo changed his mind
--- NOTE | 2019-08-31 07:56 | NUR ---
NURSE NOTES: Received patient in bed awake. No SOB or acute distress. IV line intact and patent. Night RN Farhana said ok to keep condom catheter on. HOB elevated. Bed locked in lowest position. Call light within reach. Will continue plan of care.
[2019-08-31 08:00] VITALS: BP 128/75
[2019-08-31] MEDS: Doxycycline Monohydrate 100mg ORAL SCH ×2 (08:45→21:00)
[2019-08-31] MEDS: Aspirin Baby 81mg ORAL SCH (08:46)
--- NOTE | 2019-08-31 09:00 | NUR ---
DISCHARGE PLANNING CALLED [facility] AND SPOKE WITH CHERI ALONZO PATIENT CANNOT RETURN TO [facility] IF HE CONTINUES TO TEST POSITIVE IF HE BECOMES NEGATIVE THEY WILL ACCEPT BACK AND ISOLATE CALLED DR MARIN'S OFFICE T; [phone] AND LEFT MESSAGE WITH [facility] [employer] REGARDING ABOVE Addendum: 08/31/19 at 1354 by RANCHO MAZARIEGOS LVN LVN DISCHARGE PLACEMENT DISCUSSED WITH DR TOMAS MARIN REQUESTED PATIENT BE REFERRED TO [facility] AND [facility] SPOKE WITH PREETHI AT [facility] ~ THEY ARE NOT TAKING ANY COVID POSITIVE PATIENTS SPOKE WITH CARSON AT [facility] ~ THEY ARE NOT TAKING ANY COVID PATIENTS AT THIS TIME PATIENT WILL NEED TO BE REFERRED TO A COVID SNF ie.[facility]
--- NOTE | 2019-08-31 09:12 | Pulmonology Progress Note ---
Luciana Caceres RIVETER HELPER 08/31/19 0912: Subjective Constitutional: Reports: fatigue; Denies: fever Gastrointestinal/Abdominal: Reports: diarrhea; Denies: nausea, vomiting Psychiatric: Denies: depression Skin: Denies: rash Musculoskeletal: Denies: pain Allergies: Coded Allergies: No Known Allergies (Unverified , 08/26/19) Subjective afebrile, no leukocytosis pulse ox stable on O2 2 L via NC no signs of resp distress. no use of accessory muscles CXR 08/27 with evidence of PNA SARS-CoV-2 by PCR detected , remains in isolation Objective Last 24 Hour Vital Signs Date Time Temp Pulse Resp B/P (MAP) Pulse Ox O2 Delivery O2 Flow Rate FiO2 08/31/19 08:00 98.7 83 20 128/75 (92) 96 08/31/19 04:00 63 08/31/19 04:00 98.2 67 21 115/64 (81) 96 08/31/19 00:00 97.9 77 20 120/62 (81) 96 08/31/19 00:00 54 08/30/19 21:00 Nasal Cannula 2.0 08/30/19 20:00 97.1 69 20 128/77 (94) 96 08/30/19 20:00 62 08/30/19 16:00 98.6 67 19 119/70 (86) 97 08/30/19 16:00 75 08/30/19 12:00 74 08/30/19 12:00 97.2 74 19 115/70 (85) 97 Intake and Output 08/30/19 08/31/19 19:00 07:00 Intake Total 720 ml Output Total 800 ml Balance 720 ml -800 ml Intake Oral 720 ml Output Urine Total 800 ml # Bowel Movements 5 Objective General Appearance: no apparent distress, alert , awake elderly male , forgetful Lines, tubes and drains: peripheral HEENT: normocephalic, atraumatic, anicteric, mucous membranes moist, PERRL, O2 via NC Neck: non-tender, supple Respiratory/Chest: few isolated rhonchi , no respiratory distress, no accessory muscle use Cardiovascular/Chest: normal rate, regular rhythm Abdomen: normal bowel sounds, soft Extremities: no calf tenderness, non-pitting Neurologic: alert, responsive , forgetful Musculoskeletal: atrophy BLE Genitourinary: other - no pablo Current Medications Medications (Trade) Dose Ordered Sig/Lucius Route PRN Reason Start Time Stop Time Status Last Admin Dose Admin Acetaminophen (Tylenol) 650 mg Q4H PRN ORAL Mild Pain (Pain Scale 1-3) 08/26/19 18:15 09/25/19 18:14 Acetaminophen (Tylenol) 650 mg Q4H PRN ORAL Temp >100.5 08/26/19 18:15 09/25/19 18:14 Albuterol Sulfate (Proventil MDI) 2 puff Q4H PRN INH Shortness of Breath 08/27/19 10:00 11/25/19 09:59 Aspirin (ASA) 81 mg DAILY ORAL 08/26/19 18:21 10/10/19 18:20 08/31/19 08:46 Ceftriaxone Sodium 1 gm/ Sodium Chloride 55 ml @ 110 mls/hr Q24H IVPB 08/26/19 21:00 09/02/19 20:59 08/30/19 21:25 Dextrose (Dextrose 50%) 25 ml Q30M PRN IV Hypoglycemia 08/26/19 18:15 11/24/19 18:14 Dextrose (Dextrose 50%) 50 ml Q30M PRN IV Hypoglycemia 08/26/19 18:15 11/24/19 18:14 Doxycycline Monohydrate (Doxycycline Monohydrate) 100 mg Q12HR ORAL 08/26/19 21:00 09/02/19 20:59 08/31/19 08:45 Enoxaparin Sodium (Lovenox) 60 mg Q24H SUBQ 08/27/19 14:00 11/25/19 13:59 08/30/19 13:31 Famotidine (Pepcid) 20 mg BID ORAL 08/27/19 09:00 11/25/19 08:59 08/31/19 08:46 Magnesium Hydroxide (Mom) 30 ml HSPRN PRN ORAL Constipation 08/26/19 18:15 09/25/19 18:14 Nitroglycerin (Ntg) 0.4 mg Q5M PRN SL Prn Chest Pain 08/26/19 18:15 09/25/19 18:14 Ondansetron HCl (Zofran) 4 mg Q6H PRN IVP Nausea & Vomiting 08/26/19 18:15 09/25/19 18:14 Sodium 1,000 ml @ 50 mls/hr Q20H IV 08/26/19 21:00 09/25/19 20:59 08/31/19 01:19 Assessment/Plan Assessment/Plan ASSESSMENT Confirmed COVID 19 infection Probably sepsis ( with fevers, leukocytosis, lactic acidosis and evidence of infection) PNA Hypoxia Transaminitis ALEC FTT , probably due to protein calorie malnutrition PLAN OF CARE tele SARS-CoV-2 by PCR detected keep in isolation repeat CoVID 08/30 continue empiric Ceftriaxone and Doxycycline fup with cx BCX NGTD, leuk and fevers resolved ID on board now CXR 08/27 - Slight interim increase in bilateral right greater than left infiltrates, likely pneumonia, over 2 days CXR 08/31 CRP, LDH and ferritin in am O2 titrate to keep sat above 90% , stable on 2 L via NC MDI DVT prophylaxis ASA resumed gentle IV hydration monitor renal paramerts, lytes, correct as needed trend LFT-> trending down abd US pending GI prophylaxis dietary eval re protein supplements case discussed and evaluated by supervising physician Yunier Decker MD 09/01/19 1449: Subjective Allergies: Coded Allergies: No Known Allergies (Unverified , 08/26/19) Assessment/Plan Assessment/Plan Patient seen and examined with R[facility] HELPER. Agree with A&P above as it reflects our joint deliberations. Luciana Caceres RIVET[employer] HELPER August 31, 2019 09:12 Yunier Decker MD September 01, 2019 14:49
[2019-08-31 12:00] VITALS: BP 128/74
--- NOTE | 2019-08-31 12:16 | General Progress Note ---
Assessment/Plan Problem List: (1) Healthcare-associated pneumonia ICD Codes: J18.9 - Pneumonia, unspecified organism SNOMED: 945567554, 120747158 (2) Suspected 2019 novel coronavirus infection ICD Codes: Z20.828 - Contact with and (suspected) exposure to other viral communicable diseases SNOMED: 771619261 (3) Coronary arteriosclerosis ICD Codes: I25.10 - Atherosclerotic heart disease of [place] coronary artery without angina pectoris SNOMED: 60523939 Assessment/Plan: alessandra hurst supportive care covid +, consults appreciated, hydration Subjective Constitutional: Reports: weakness HEENT: Reports: no symptoms Cardiovascular: Reports: no symptoms Respiratory: Reports: cough Gastrointestinal/Abdominal: Reports: poor appetite Neurologic/Psychiatric: Reports: pre-existing deficit Endocrine: Reports: no symptoms Hematologic/Lymphatic: Reports: no symptoms Allergies: Coded Allergies: No Known Allergies (Unverified , 08/26/19) Objective Last 24 Hour Vital Signs Date Time Temp Pulse Resp B/P (MAP) Pulse Ox O2 Delivery O2 Flow Rate FiO2 08/31/19 09:00 Nasal Cannula 2.0 08/31/19 08:00 91 08/31/19 08:00 98.7 83 20 128/75 (92) 96 08/31/19 04:00 63 08/31/19 04:00 98.2 67 21 115/64 (81) 96 08/31/19 00:00 97.9 77 20 120/62 (81) 96 08/31/19 00:00 54 08/30/19 21:00 Nasal Cannula 2.0 08/30/19 20:00 97.1 69 20 128/77 (94) 96 08/30/19 20:00 62 08/30/19 16:00 98.6 67 19 119/70 (86) 97 08/30/19 16:00 75 Intake and Output 08/30/19 08/31/19 19:00 07:00 Intake Total 720 ml Output Total 800 ml Balance 720 ml -800 ml Intake Oral 720 ml Output Urine Total 800 ml # Bowel Movements 5 Height (Feet): 5 Height (Inches): 6.00 Weight (Pounds): 120 General Appearance: alert EENT: normal ENT inspection Neck: normal alignment Cardiovascular: normal rate, regular rhythm Respiratory/Chest: lungs clear Abdomen: non tender, soft Edema: no edema noted Arm (L), no edema noted Arm (R), no edema noted Leg (L), no edema noted Leg (R), no edema noted Pedal (L), no edema noted Pedal (R), no edema noted Generalized Neurologic: knowledge architect II-XII grossly normal Earle Jaramillo MD August 31, 2019 12:16
--- NOTE | 2019-08-31 12:33 | NUR ---
NURSE NOTES: Covid swab done, sent to lab.
--- NOTE | 2019-08-31 12:39 | NUR ---
RD ASSESSMENT & RECOMMENDATIONS SEE CARE ACTIVITY FOR COMPLETE ASSESSMENT DAILY ESTIMATED NEEDS: Needs based on sepsis/ 68kg 25-30 kcals/kg 5929-6810 total kcals 1-2 g protein/kg 68-136 g total protein 25-30 mL/kg 3515-4398 total fluid mLs NUTRITION DIAGNOSIS: Inadequate oral intake R/T decreased appetite, clinical condition, specific food preferences? as evidenced by poor and variable intake, improved since adm, admitted w/ c/o FTT. CURRENT DIET:REGULAR/ soft easy chew PO DIET RECOMMENDATIONS: Maintain liberalized REGULAR/ texture per ASSOCIATE PROFESSOR ADDITIONAL RECOMMENDATIONS: * Per assisted living [facility]: Wt from August = 150lbs * [place] s/w or ham cheese s/w on all meals -> per real estate services administrator at assisted living [facility], pt only liked eating turkey or cheese s/w as long as pt has been residing at the facility * MVI x 1 as supplement * Ensure Enlive BID w/ meals, monitor acceptance .
[2019-08-31] MEDS: Enoxaparin 60mg Inj SUBQ SCH (13:36)
[2019-08-31 16:00] VITALS: BP 130/77
--- NOTE | 2019-08-31 16:15 | NUR ---
NURSE NOTES: Patient been refusing to remove condom catheter today. But patient finally agreed, condom catheter removed and encouraged to sit up on chair.
--- NOTE | 2019-08-31 19:30 | NUR ---
HAND-OFF: Report given to Nathaly ARCE.
--- NOTE | 2019-08-31 19:50 | NUR ---
NURSE NOTES: Received pt from CLAUDE Collins. Pt asleep. Bed in lowest position. Call light within reach. Will continue to monitor.
[2019-08-31 20:00] VITALS: BP 111/66
[2019-08-31] MEDS: cefTRIAXone 1 GM in NS 55 ML IVPB SCH (21:31)
[2019-09-01] VITALS: BP 135/85
[2019-09-01 04:00] VITALS: BP 135/80
--- NOTE | 2019-09-01 07:16 | NUR ---
HAND-OFF: Report given to CLAUDE Collins. Pt stable.
[2019-09-01 07:17] LABS: BASOPHILS % (AUTO) 1.3 % (0.0-2.0); EOSINOPHILS % (AUTO) 3.9 % (0.0-3.0); HEMATOCRIT 33.7 % (42.0-52.0); LYMPHOCYTES % (AUTO) 13.2 % (20.0-45.0); MEAN CORPUSCULAR VOLUME 88 FL (80-99); MONOCYTES % (AUTO) 8.4 % (1.0-10.0); NEUTROPHILS % (AUTO) 73.2 % (45.0-75.0); PLATELET COUNT 408 K/UL (150-450); RED BLOOD COUNT 3.84 M/UL (4.70-6.10); RED CELL DISTRIBUTION WIDTH 10.1 % (11.6-14.8); WHITE BLOOD COUNT 6.3 K/UL (4.8-10.8)
[2019-09-01 08:00] VITALS: BP 141/79
[2019-09-01 08:13] LABS: ALANINE AMINOTRANSFERASE 125 U/L (12-78); ALBUMIN 2.2 G/DL (3.4-5.0); ALBUMIN/GLOBULIN RATIO 0.5 (1.0-2.7); ALKALINE PHOSPHATASE 74 U/L (46-116); ANION GAP 9 mmol/L (5-15); ASPARTATE AMINO TRANSFERASE 70 U/L (15-37); BILIRUBIN,TOTAL 0.3 MG/DL (0.2-1.0); BLOOD UREA NITROGEN 9 mg/dL (7-18); CALCIUM 8.4 MG/DL (8.5-10.1); CARBON DIOXIDE 26 MMOL/L (21-32); CHLORIDE 106 MMOL/L (98-107); CREATININE 0.9 MG/DL (0.55-1.30); FERRITIN 325 NG/ML (8-388); SODIUM 141 MMOL/L (136-145)
[2019-09-01] MEDS: Aspirin Baby 81mg ORAL SCH (08:14)
[2019-09-01] MEDS: Doxycycline Monohydrate 100mg ORAL SCH ×2 (08:14→20:47)
--- NOTE | 2019-09-01 09:23 | Pulmonology Progress Note ---
Luciana Caceres DISH NETWORK INSTALLER 09/01/19 0923: Subjective Constitutional: Reports: fatigue; Denies: fever Gastrointestinal/Abdominal: Reports: diarrhea; Denies: nausea, vomiting Psychiatric: Denies: depression Skin: Denies: rash Musculoskeletal: Denies: pain Allergies: Coded Allergies: No Known Allergies (Unverified , 08/26/19) Subjective afebrile, no leukocytosis pulse ox stable on O2 2 L via NC no signs of resp distress. no use of accessory muscles CXR for this am pending SARS-CoV-2 by PCR detected , remains in isolation Objective Last 24 Hour Vital Signs Date Time Temp Pulse Resp B/P (MAP) Pulse Ox O2 Delivery O2 Flow Rate FiO2 09/01/19 08:00 98.6 77 20 141/79 (99) 96 09/01/19 04:00 98.8 79 19 135/80 (98) 100 09/01/19 04:00 47 09/01/19 00:00 98.6 78 19 135/85 (102) 98 09/01/19 00:00 64 08/31/19 21:00 Nasal Cannula 2.0 08/31/19 20:05 95 Nasal Cannula 2.0 28 08/31/19 20:00 97.4 74 19 111/66 (81) 94 08/31/19 20:00 83 08/31/19 16:00 97.5 76 19 130/77 (94) 96 08/31/19 16:00 83 08/31/19 12:00 96.7 67 18 128/74 (92) 95 08/31/19 12:00 92 Intake and Output 08/31/19 09/01/19 18:59 06:59 Intake Total 620 ml Output Total 0 ml Balance 620 ml 0 ml Intake Oral 120 ml IV Total 500 ml Output Urine Total 0 ml Objective General Appearance: no apparent distress, alert , awake elderly male , forgetful Lines, tubes and drains: peripheral HEENT: normocephalic, atraumatic, anicteric, mucous membranes moist, PERRL, O2 via NC Neck: non-tender, supple Respiratory/Chest: few isolated rhonchi , no respiratory distress, no accessory muscle use Cardiovascular/Chest: normal rate, regular rhythm Abdomen: normal bowel sounds, soft Extremities: no calf tenderness, non-pitting Neurologic: alert, responsive , forgetful Musculoskeletal: atrophy BLE Genitourinary: other - no pablo Laboratory Tests 09/01/19 06:57: White Blood Count 6.3, Red Blood Count 3.84L, Hemoglobin 12.0L, Hematocrit 33.7L , Mean Corpuscular Volume 88, Mean Corpuscular Hemoglobin 31.4H, Mean Corpuscular Hemoglobin Concent 35.7, Red Cell Distribution Width 10.1L, Platelet Count 408, Mean Platelet Volume 5.8L, Neutrophils (%) (Auto) 73.2, Lymphocytes (%) (Auto) 13.2L, Monocytes (%) (Auto) 8.4, Eosinophils (%) (Auto) 3.9H, Basophils (%) (Auto) 1.3, Sodium Level 141, Potassium Level 4.0, Chloride Level 106, Carbon Dioxide Level 26, Anion Gap 9, Blood Urea Nitrogen 9, Creatinine 0.9, Estimat Glomerular Filtration Rate > 60, Glucose Level 87, Calcium Level 8.4L, Ferritin 325, Total Bilirubin 0.3, Aspartate Amino Transf ( AST/SGOT) 70H, Alanine Aminotransferase (ALT/SGPT) 125H, Alkaline Phosphatase 74 , Lactate Dehydrogenase [Pending], C-Reactive Protein, Quantitative [Pending], Total Protein 6.4, Albumin 2.2L, Globulin 4.2, Albumin/Globulin Ratio 0.5L Current Medications Medications (Trade) Dose Ordered Sig/Lucius Route PRN Reason Start Time Stop Time Status Last Admin Dose Admin Acetaminophen (Tylenol) 650 mg Q4H PRN ORAL Mild Pain (Pain Scale 1-3) 08/26/19 18:15 09/25/19 18:14 Acetaminophen (Tylenol) 650 mg Q4H PRN ORAL Temp >100.5 08/26/19 18:15 09/25/19 18:14 Albuterol Sulfate (Proventil MDI) 2 puff Q4H PRN INH Shortness of Breath 08/27/19 10:00 11/25/19 09:59 Aspirin (ASA) 81 mg DAILY ORAL 08/26/19 18:21 10/10/19 18:20 09/01/19 08:14 Ceftriaxone Sodium 1 gm/ Sodium Chloride 55 ml @ 110 mls/hr Q24H IVPB 08/26/19 21:00 09/02/19 20:59 08/31/19 21:31 Dextrose (Dextrose 50%) 25 ml Q30M PRN IV Hypoglycemia 08/26/19 18:15 11/24/19 18:14 Dextrose (Dextrose 50%) 50 ml Q30M PRN IV Hypoglycemia 08/26/19 18:15 11/24/19 18:14 Doxycycline Monohydrate (Doxycycline Monohydrate) 100 mg Q12HR ORAL 08/26/19 21:00 09/02/19 20:59 09/01/19 08:14 Enoxaparin Sodium (Lovenox) 60 mg Q24H SUBQ 08/27/19 14:00 11/25/19 13:59 08/31/19 13:36 Famotidine (Pepcid) 20 mg BID ORAL 08/27/19 09:00 11/25/19 08:59 09/01/19 08:14 Magnesium Hydroxide (Mom) 30 ml HSPRN PRN ORAL Constipation 08/26/19 18:15 09/25/19 18:14 Nitroglycerin (Ntg) 0.4 mg Q5M PRN SL Prn Chest Pain 08/26/19 18:15 09/25/19 18:14 Ondansetron HCl (Zofran) 4 mg Q6H PRN IVP Nausea & Vomiting 08/26/19 18:15 09/25/19 18:14 Sodium 1,000 ml @ 50 mls/hr Q20H IV 08/26/19 21:00 09/25/19 20:59 08/31/19 21:31 Assessment/Plan Assessment/Plan ASSESSMENT Confirmed COVID 19 infection Probably sepsis ( with fevers, leukocytosis, lactic acidosis and evidence of infection) PNA Hypoxia Transaminitis ALEC FTT , probably due to protein calorie malnutrition PLAN OF CARE tele SARS-CoV-2 by PCR detected keep in isolation repeat CoVID 08/30 continue empiric Ceftriaxone and Doxycycline fup with cx BCX NGTD, leuk and fevers resolved ID on board now CXR 08/27 - Slight interim increase in bilateral right greater than left infiltrates, likely pneumonia, over 2 days CXR 08/31 pending CRP, LDH and ferritin pending O2 titrate to keep sat above 90% , stable on 2 L via NC MDI DVT prophylaxis ASA resumed gentle IV hydration monitor renal paramerts, lytes, correct as needed trend LFT-> trending down abd US pending GI prophylaxis dietary eval re protein supplements can go to [place] if ok with attending case discussed and evaluated by supervising physician Yunier Decker MD 09/01/19 1449: Subjective Allergies: Coded Allergies: No Known Allergies (Unverified , 08/26/19) Assessment/Plan Assessment/Plan Patient seen and examined with DISH NETWORK INSTALLER. Agree with A&P above as it reflects our joint deliberations. Luciana Caceres NP September 01, 2019 09:23 Yunier Decker MD September 01, 2019 14:49
--- NOTE | 2019-09-01 10:04 | Diagnostic Imaging Report ---
Indication: Cough Technique: One view of the chest Comparison: 08/28/2019 Findings: Again demonstrated is right mid and lower lung infiltrate, appearing slightly more extensive than slightly more densely consolidated than on the previous study. There is a suggestion of a small pleural effusion on the right now present. Peripheral infiltrate in the left midlung is less extensive than on the right, but increased from the prior exam. The left pleural space is clear. The heart size is normal. Impression: Increasing right greater than left infiltrates, since prior exam of 4 days earlier
[2019-09-01 11:54] VITALS: BP 132/78
--- NOTE | 2019-09-01 12:29 | NUR ---
RADIOLOGY DEPT., CHEST X-RAY DONE.-P.DYE
[2019-09-01] MEDS: Enoxaparin 60mg Inj SUBQ SCH (13:53)
[2019-09-01 15:32] VITALS: BP 139/75
--- NOTE | 2019-09-01 15:33 | NUR ---
CASE MANAGEMENT:REVIEW 09/01/19 SI: COVID 19 PNA 96.8 73 19 132/78 94% ON 2L/NC H/H-12.0/33.7 AST/ALT+70/125 IS: IV ROCEPHIN Q24 IVF@50/HR DOXYCYCLINE PO Q12 LOVENOX SQ Q24 PEPCID PO BID ASA PO QD : TELEMETRY STATUS DCP: PATIENT IS FROM [place] LONG TERM PLAN: COVID 19 TEST REPEATED 08/30...RESULTS PENDING LAST TEMP 08/27/19 T~100.1 08/28/19 T~99.7
--- NOTE | 2019-09-01 15:39 | NUR ---
DISCHARGE PLANNING COVID 19 DETECTED PATIENT CANNOT RETURN TO [facility] IF COVID POSITIVE DR MARIN WAS NOTIFIED OF CHANGE IN DISCHARGE DISPOSITION PATIENT WAS REFERRED TO [facility]...NEITHER ARE ACCEPTING COVID 19 PATIENTS WILL NEED TO GO TO COVID SNF SUCH [facility] OR [facility] REPEAT COVID TEST RESULTS PENDING
--- NOTE | 2019-09-01 16:13 | NUR ---
NURSE NOTES: Ambulated with assist today around the room, noted with small steps, moderate pace, steady gait but verbalized a little weakness.
[2019-09-01] MEDS: 1/2NS w/KCl 20mEq 1000ml 1,000 ML IV SCH (17:40)
--- NOTE | 2019-09-01 18:57 | Infectious Diseases Prog Note ---
Assessment/Plan Assessment/Plan ASSESSMENT AND PLAN: 1. covid-19 virus infection and pna, pcr +, ? cap, sepsis, fevers, leukocytosis - rocephin and doxycycline - day # 6/7 - clinically stable, fevers resolved - no indication for hydroxychloroquine - monitor labs and chest x-ray - chest x-ray slt worse but no fevers and no sob 2. BPH. 3. Prostatectomy. 4. Cardiovascular disease. 5. No history of diabetes or hypertension. 6. The patient did have elevated lactic acid, possible sepsis with fevers, SIRS criteria. 7. No known drug allergies. 8. Social history is negative. 9. Family history is noncontributory. 10. MAR was noted. 11. Case discussed with RN. 12. Continue treatment per primary consultants. Subjective Constitutional: Denies: fever HEENT: Denies: congestion Respiratory: Denies: shortness of breath Cardiovascular: Denies: chest pain Gastrointestinal/Abdominal: Denies: nausea, vomiting, diarrhea Genitourinary: Reports: other - no pablo Neurologic: Denies: headache Psychiatric: Denies: depression Skin: Denies: rash Hematologic: Denies: bleeding Musculoskeletal: Denies: pain Allergies: Coded Allergies: No Known Allergies (Unverified , 08/26/19) Objective Vital Signs Last 24 Hour Vital Signs Date Time Temp Pulse Resp B/P (MAP) Pulse Ox O2 Delivery O2 Flow Rate FiO2 09/01/19 16:00 61 09/01/19 15:32 97.5 74 20 139/75 (96) 94 09/01/19 12:00 83 09/01/19 11:54 96.8 73 19 132/78 (96) 94 09/01/19 09:00 Nasal Cannula 2.0 09/01/19 08:00 98.6 77 20 141/79 (99) 96 09/01/19 08:00 95 09/01/19 04:00 98.8 79 19 135/80 (98) 100 09/01/19 04:00 47 09/01/19 00:00 98.6 78 19 135/85 (102) 98 09/01/19 00:00 64 08/31/19 21:00 Nasal Cannula 2.0 08/31/19 20:05 95 Nasal Cannula 2.0 28 08/31/19 20:00 97.4 74 19 111/66 (81) 94 08/31/19 20:00 83 Height (Feet): 5 Height (Inches): 6.00 Weight (Pounds): 120 General Appearance: no acute distress HEENT: normocephalic, atraumatic, anicteric, mucous membranes moist Respiratory/Chest: no accessory muscle use, crackles/rales, rhonchi - bilaterally Cardiovascular: normal rate, regular rhythm Abdomen: normal bowel sounds, soft, non tender, no organomegaly, non distended Genitourinary: other - no pablo Extremities: no cyanosis Skin: no rash Neurologic/Psychiatric: 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 Reticular retrocardiac an peripheral left midlung opacities are slightly more prominent. Impression: Slight interim increase in bilateral right greater than left infiltrates, likely pneumonia, over 2 days Chest x-ray - 09/01/19- Indication: Cough Technique: One view of the chest Comparison: 08/28/2019 Findings: Again demonstrated is right mid and lower lung infiltrate, appearing slightly more extensive than slightly more densely consolidated than on the previous study. There is a suggestion of a small pleural effusion on the right now present. Peripheral infiltrate in the left midlung is less extensive than on the right, but increased from the prior exam. The left pleural space is clear. The heart size is normal. Impression: Increasing right greater than left infiltrates, since prior exam of 4 days earlier Microbiology Date/Time Source Procedure Growth Status 08/26/19 15:24 Blood Blood Culture - Final NO GROWTH AFTER 5 DAYS Complete 08/26/19 19:00 Nasal Nares MRSA Culture - Final NO METHICILLIN RESISTANT STAPH AUREUS... Complete 08/26/19 19:10 Rectum VRE Culture - Final NO VANCOMYCIN RESISTANT ENTEROCOCCUS ... Complete Laboratory Tests Test 09/01/19 06:57 White Blood Count 6.3 K/UL (4.8-10.8) Red Blood Count 3.84 M/UL (4.70-6.10) L Hemoglobin 12.0 G/DL (14.2-18.0) L Hematocrit 33.7 % (42.0-52.0) L Mean Corpuscular Volume 88 FL (80-99) Mean Corpuscular Hemoglobin 31.4 PG (27.0-31.0) H Mean Corpuscular Hemoglobin Concent 35.7 G/DL (32.0-36.0) Red Cell Distribution Width 10.1 % (11.6-14.8) L Platelet Count 408 K/UL (150-450) Mean Platelet Volume 5.8 FL (6.5-10.1) L Neutrophils (%) (Auto) 73.2 % (45.0-75.0) Lymphocytes (%) (Auto) 13.2 % (20.0-45.0) L Monocytes (%) (Auto) 8.4 % (1.0-10.0) Eosinophils (%) (Auto) 3.9 % (0.0-3.0) H Basophils (%) (Auto) 1.3 % (0.0-2.0) Sodium Level 141 MMOL/L (136-145) Potassium Level 4.0 MMOL/L (3.5-5.1) Chloride Level 106 MMOL/L (98-107) Carbon Dioxide Level 26 MMOL/L (21-32) Anion Gap 9 mmol/L (5-15) Blood Urea Nitrogen 9 mg/dL (7-18) Creatinine 0.9 MG/DL (0.55-1.30) Estimat Glomerular Filtration Rate > 60 mL/min (>60) Glucose Level 87 MG/DL (74-106) Calcium Level 8.4 MG/DL (8.5-10.1) L Ferritin 325 NG/ML (8-388) Total Bilirubin 0.3 MG/DL (0.2-1.0) Aspartate Amino Transf (AST/SGOT) 70 U/L (15-37) H Alanine Aminotransferase (ALT/SGPT) 125 U/L (12-78) H Alkaline Phosphatase 74 U/L (46-116) Lactate Dehydrogenase 286 U/L (81-234) H C-Reactive Protein, Quantitative 9.7 mg/dL (0.00-0.90) H Total Protein 6.4 G/DL (6.4-8.2) Albumin 2.2 G/DL (3.4-5.0) L Globulin 4.2 g/dL Albumin/Globulin Ratio 0.5 (1.0-2.7) L Current Medications Medications (Trade) Dose Ordered Sig/Lucius Route PRN Reason Start Time Stop Time Status Last Admin Dose Admin Acetaminophen (Tylenol) 650 mg Q4H PRN ORAL Mild Pain (Pain Scale 1-3) 08/26/19 18:15 09/25/19 18:14 Acetaminophen (Tylenol) 650 mg Q4H PRN ORAL Temp >100.5 08/26/19 18:15 09/25/19 18:14 Albuterol Sulfate (Proventil MDI) 2 puff Q4H PRN INH Shortness of Breath 08/27/19 10:00 11/25/19 09:59 Aspirin (ASA) 81 mg DAILY ORAL 08/26/19 18:21 10/10/19 18:20 09/01/19 08:14 Ceftriaxone Sodium 1 gm/ Sodium Chloride 55 ml @ 110 mls/hr Q24H IVPB 08/26/19 21:00 09/02/19 20:59 08/31/19 21:31 Dextrose (Dextrose 50%) 25 ml Q30M PRN IV Hypoglycemia 08/26/19 18:15 11/24/19 18:14 Dextrose (Dextrose 50%) 50 ml Q30M PRN IV Hypoglycemia 08/26/19 18:15 11/24/19 18:14 Doxycycline Monohydrate (Doxycycline Monohydrate) 100 mg Q12HR ORAL 08/26/19 21:00 09/02/19 20:59 09/01/19 08:14 Enoxaparin Sodium (Lovenox) 60 mg Q24H SUBQ 08/27/19 14:00 11/25/19 13:59 09/01/19 13:53 Famotidine (Pepcid) 20 mg BID ORAL 08/27/19 09:00 11/25/19 08:59 09/01/19 17:39 Magnesium Hydroxide (Mom) 30 ml HSPRN PRN ORAL Constipation 08/26/19 18:15 09/25/19 18:14 Nitroglycerin (Ntg) 0.4 mg Q5M PRN SL Prn Chest Pain 08/26/19 18:15 09/25/19 18:14 Ondansetron HCl (Zofran) 4 mg Q6H PRN IVP Nausea & Vomiting 08/26/19 18:15 09/25/19 18:14 Sodium 1,000 ml @ 50 mls/hr Q20H IV 08/26/19 21:00 09/25/19 20:59 09/01/19 17:40 Marsha Rivera MD September 01, 2019 18:57
--- NOTE | 2019-09-01 19:45 | NUR ---
HAND-OFF: Report given to Yris.
[2019-09-01 20:00] VITALS: BP 139/79
--- NOTE | 2019-09-01 20:20 | NUR ---
NURSE NOTES: Received patient report from CLAUDE Collins. AOx 4. patient shows no signs of distress or pain at the time. IV checked, patent and flushed. There are no signs of erythema, infiltration, or bleeding. Patient denies having shortness of breath. Bed in the lowest position, call light within reach, side rails up x 3, and bed alarm on. Will continue plan of care.
[2019-09-01] MEDS: cefTRIAXone 1 GM in NS 55 ML IVPB SCH (20:47)
[2019-09-02] VITALS: BP 136/79
--- NOTE | 2019-09-02 02:27 | NUR ---
NURSE NOTES: Patient complaining of constipation. Says he feels like he has to go, but cant. Gave him Milk of Magnesia to help.
[2019-09-02 04:00] VITALS: BP 138/80
--- NOTE | 2019-09-02 07:39 | NUR ---
HAND-OFF: Report given to CLAUDE Dozier. PAtient shows no signs of distress or pain at the time. Endorsed plan of care.
--- NOTE | 2019-09-02 07:40 | NUR ---
NURSE NOTES: Received report from Yris/RN, patient is awake and alert, sitting on bed, eating breakfast, On 2L Nasal canula, no acute distress/SOB noted. Able to make needs known, denies pain at this time, IV on Right Hand, patent, no bleeding or infiltration noted, 1/2 NS running at 50cc/hr. Bed in lowest position and locked, Call light within reach, Encouraged to use call light when needed. Will continue plan of care.
[2019-09-02 08:00] VITALS: BP 139/76
--- NOTE | 2019-09-02 08:58 | Pulmonology Progress Note ---
Luciana Caceres TUBE BENDING MACHINE OPERATOR 09/02/19 0858: Subjective Constitutional: Denies: fever Gastrointestinal/Abdominal: Denies: nausea, vomiting, diarrhea Psychiatric: Denies: depression Skin: Denies: rash Musculoskeletal: Denies: pain Allergies: Coded Allergies: No Known Allergies (Unverified , 08/26/19) Subjective remains afebrile, no leukocytosis pulse ox stable on O2 2 L via NC no signs of resp distress. no use of accessory muscles CXR 08/31 Increasing right greater than left infiltrates, since prior exam SARS-CoV-2 by PCR detected , remains in isolation Objective Last 24 Hour Vital Signs Date Time Temp Pulse Resp B/P (MAP) Pulse Ox O2 Delivery O2 Flow Rate FiO2 09/02/19 08:00 97.3 77 20 139/76 (97) 95 09/02/19 04:00 97.2 70 19 138/80 (99) 98 09/02/19 04:00 56 09/02/19 00:00 64 09/02/19 00:00 97.0 69 19 136/79 (98) 91 09/01/19 21:00 Nasal Cannula 2.0 09/01/19 20:00 51 09/01/19 20:00 97.0 82 19 139/79 (99) 98 09/01/19 16:00 61 09/01/19 15:32 97.5 74 20 139/75 (96) 94 09/01/19 12:00 83 09/01/19 11:54 96.8 73 19 132/78 (96) 94 09/01/19 09:00 Nasal Cannula 2.0 Intake and Output 09/01/19 09/02/19 19:00 07:00 Intake Total 600 ml Output Total 1 ml Balance 600 ml -1 ml IV Total 600 ml Output Urine Total 1 ml # Bowel Movements 2 Objective General Appearance: no apparent distress, alert , awake elderly male , forgetful Lines, tubes and drains: peripheral HEENT: normocephalic, atraumatic, anicteric, mucous membranes moist, PERRL, on O2 via NC Neck: non-tender, supple Respiratory/Chest: few isolated rhonchi , no accessory muscle use Cardiovascular/Chest: normal rate, regular rhythm Abdomen: normal bowel sounds, soft Extremities: no calf tenderness, non-pitting Neurologic: alert, responsive , forgetful Musculoskeletal: atrophy BLE Genitourinary: other - no pablo Current Medications Medications (Trade) Dose Ordered Sig/Lucius Route PRN Reason Start Time Stop Time Status Last Admin Dose Admin Acetaminophen (Tylenol) 650 mg Q4H PRN ORAL Mild Pain (Pain Scale 1-3) 08/26/19 18:15 09/25/19 18:14 Acetaminophen (Tylenol) 650 mg Q4H PRN ORAL Temp >100.5 08/26/19 18:15 09/25/19 18:14 Albuterol Sulfate (Proventil MDI) 2 puff Q4H PRN INH Shortness of Breath 08/27/19 10:00 11/25/19 09:59 Aspirin (ASA) 81 mg DAILY ORAL 08/26/19 18:21 10/10/19 18:20 09/01/19 08:14 Ceftriaxone Sodium 1 gm/ Sodium Chloride 55 ml @ 110 mls/hr Q24H IVPB 08/26/19 21:00 09/02/19 20:59 09/01/19 20:47 Dextrose (Dextrose 50%) 25 ml Q30M PRN IV Hypoglycemia 08/26/19 18:15 11/24/19 18:14 Dextrose (Dextrose 50%) 50 ml Q30M PRN IV Hypoglycemia 08/26/19 18:15 11/24/19 18:14 Doxycycline Monohydrate (Doxycycline Monohydrate) 100 mg Q12HR ORAL 08/26/19 21:00 09/02/19 20:59 09/01/19 20:47 Enoxaparin Sodium (Lovenox) 60 mg Q24H SUBQ 08/27/19 14:00 11/25/19 13:59 09/01/19 13:53 Famotidine (Pepcid) 20 mg BID ORAL 08/27/19 09:00 11/25/19 08:59 09/01/19 17:39 Magnesium Hydroxide (Mom) 30 ml HSPRN PRN ORAL Constipation 08/26/19 18:15 09/25/19 18:14 09/02/19 02:11 Nitroglycerin (Ntg) 0.4 mg Q5M PRN SL Prn Chest Pain 08/26/19 18:15 09/25/19 18:14 Ondansetron HCl (Zofran) 4 mg Q6H PRN IVP Nausea & Vomiting 08/26/19 18:15 6/1/20 18:14 Sodium 1,000 ml @ 50 mls/hr Q20H IV 08/26/19 21:00 09/25/19 20:59 09/01/19 17:40 Assessment/Plan Assessment/Plan ASSESSMENT Confirmed COVID 19 infection Probably sepsis ( with fevers, leukocytosis, lactic acidosis and evidence of infection) PNA Hypoxia Transaminitis ALEC FTT , probably due to protein calorie malnutrition PLAN OF CARE tele SARS-CoV-2 by PCR detected keep in isolation repeat CoVID 08/30, result pending continue empiric Ceftriaxone and Doxycycline fup with cx BCX NGTD, leuk and fevers resolved ID on board now CXR 08/27 - Slight interim increase in bilateral right greater than left infiltrates, likely pneumonia, over 2 days CXR 08/31 with increasing right greater than left infiltrates, since prior exam elevated CRP-7.5 and LDH -286, on 08/31; ferritin stable 325 O2 titrate to keep sat above 90% , stable on 2 L via NC MDI DVT prophylaxis ASA resumed gentle IV hydration monitor renal paramerts, lytes, correct as needed trend LFT-> trending down abd US pending GI prophylaxis dietary eval re protein supplements , pt reports loose stool after supplements , dietary re-eval for other choice of protein supplements can go to [place] if ok with attending case discussed and evaluated by supervising physician Yunier Decker MD 09/04/19 1252: Subjective Allergies: Coded Allergies: No Known Allergies (Unverified , 08/26/19) Assessment/Plan Assessment/Plan Patient seen and examined with TUBE BENDING MACHINE OPERATOR. Agree with above A&P as it reflects our joint deliberations. Luciana Caceres TUBE BENDING MACHINE OPERATOR September 02, 2019 08:58 Yunier Decker MD September 04, 2019 12:52
[2019-09-02] MEDS: Aspirin Baby 81mg ORAL SCH (09:26)
[2019-09-02] MEDS: Doxycycline Monohydrate 100mg ORAL SCH (09:26)
[2019-09-02 12:00] VITALS: BP 119/70
[2019-09-02] MEDS: 1/2NS w/KCl 20mEq 1000ml 1,000 ML IV SCH (13:33)
[2019-09-02] MEDS: Enoxaparin 60mg Inj SUBQ SCH (13:34)
[2019-09-02 16:00] VITALS: BP 107/75
--- NOTE | 2019-09-02 19:26 | General Progress Note ---
Assessment/Plan Problem List: (1) Healthcare-associated pneumonia ICD Codes: J18.9 - Pneumonia, unspecified organism SNOMED: 434678096, 056041127 (2) Suspected 2019 novel coronavirus infection ICD Codes: Z20.828 - Contact with and (suspected) exposure to other viral communicable diseases SNOMED: 736464178 (3) Coronary arteriosclerosis ICD Codes: I25.10 - Atherosclerotic heart disease of [place] coronary artery without angina pectoris SNOMED: 53715500 Assessment/Plan: doxanay haywoodephamzah supportive care covid +, consults appreciated, hydration Subjective Constitutional: Reports: weakness HEENT: Reports: no symptoms Cardiovascular: Reports: no symptoms Respiratory: Reports: SOB with excertion Gastrointestinal/Abdominal: Reports: no symptoms Genitourinary: Reports: no symptoms Neurologic/Psychiatric: Reports: no symptoms Hematologic/Lymphatic: Reports: no symptoms Allergies: Coded Allergies: No Known Allergies (Unverified , 08/26/19) Objective Last 24 Hour Vital Signs Date Time Temp Pulse Resp B/P (MAP) Pulse Ox O2 Delivery O2 Flow Rate FiO2 09/02/19 16:00 79 09/02/19 16:00 98.0 80 20 107/75 (86) 96 09/02/19 12:00 97.5 75 20 119/70 (86) 96 09/02/19 12:00 57 09/02/19 09:00 Nasal Cannula 2.0 09/02/19 08:00 97.3 77 20 139/76 (97) 95 09/02/19 07:44 72 09/02/19 04:00 97.2 70 19 138/80 (99) 98 09/02/19 04:00 56 09/02/19 00:00 64 09/02/19 00:00 97.0 69 19 136/79 (98) 91 09/01/19 21:00 Nasal Cannula 2.0 09/01/19 20:00 51 09/01/19 20:00 97.0 82 19 139/79 (99) 98 Intake and Output 09/01/19 09/02/19 19:00 07:00 Intake Total 600 ml Output Total 1 ml Balance 600 ml -1 ml IV Total 600 ml Output Urine Total 1 ml # Bowel Movements 2 Height (Feet): 5 Height (Inches): 6.00 Weight (Pounds): 120 General Appearance: no apparent distress, alert EENT: normal ENT inspection Neck: normal alignment Cardiovascular: regular rhythm Respiratory/Chest: lungs clear Abdomen: soft Edema: no edema noted Arm (L), no edema noted Arm (R), no edema noted Leg (L), no edema noted Leg (R), no edema noted Pedal (L), no edema noted Pedal (R), no edema noted 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
--- NOTE | 2019-09-02 19:32 | NUR ---
HAND-OFF: Report given to Yris/RN. Patient is in stable condition. Endorsed plan of care.
[2019-09-02 20:00] VITALS: BP 127/77
--- NOTE | 2019-09-02 20:07 | NUR ---
NURSE NOTES: Received patient from CLAUDE Aguilar. Patient shows no signs of distress or pain at the time. AOx 4. Shows no signs of respiratory distress with Nasal canula 2L. IV patent and flushed. There are no signs of erythema, infiltration, or bleeding. Bed in the lowest position, call light within reach, side rails up x 3, and bed brakes on. Will continue plan of care.
[2019-09-03] VITALS: BP 130/74
[2019-09-03 04:00] VITALS: BP 136/71
[2019-09-03 04:17] LABS: BASOPHILS % (AUTO) 1.3 % (0.0-2.0); EOSINOPHILS % (AUTO) 3.9 % (0.0-3.0); HEMATOCRIT 35.6 % (42.0-52.0); HEMOGLOBIN 12.5 G/DL (14.2-18.0); LYMPHOCYTES % (AUTO) 15.1 % (20.0-45.0); MEAN CORPUSCULAR VOLUME 88 FL (80-99); MONOCYTES % (AUTO) 9.4 % (1.0-10.0); NEUTROPHILS % (AUTO) 70.4 % (45.0-75.0); PLATELET COUNT 467 K/UL (150-450); RED BLOOD COUNT 4.02 M/UL (4.70-6.10); RED CELL DISTRIBUTION WIDTH 10.5 % (11.6-14.8); WHITE BLOOD COUNT 5.2 K/UL (4.8-10.8)
[2019-09-03 04:56] LABS: ALANINE AMINOTRANSFERASE 136 U/L (12-78); ALBUMIN 2.2 G/DL (3.4-5.0); ALBUMIN/GLOBULIN RATIO 0.6 (1.0-2.7); ALKALINE PHOSPHATASE 68 U/L (46-116); ANION GAP 5 mmol/L (5-15); ASPARTATE AMINO TRANSFERASE 91 U/L (15-37); BILIRUBIN,TOTAL 0.2 MG/DL (0.2-1.0); BLOOD UREA NITROGEN 20 mg/dL (7-18); CALCIUM 8.4 MG/DL (8.5-10.1); CARBON DIOXIDE 26 MMOL/L (21-32); CHLORIDE 106 MMOL/L (98-107); CREATININE 1.1 MG/DL (0.55-1.30); POTASSIUM 4.7 MMOL/L (3.5-5.1); SODIUM 137 MMOL/L (136-145)
--- NOTE | 2019-09-03 07:46 | NUR ---
HAND-OFF: Report given to CLAUDE Aguilar. Patient shows no signs of distress or pain at thetime. Endorsed plan of care .
[2019-09-03 08:00] VITALS: BP 110/86
[2019-09-03] MEDS: Aspirin Baby 81mg ORAL SCH (08:24)
[2019-09-03] MEDS: 1/2NS w/KCl 20mEq 1000ml 1,000 ML IV SCH (08:24)
--- NOTE | 2019-09-03 09:09 | Pulmonology Progress Note ---
Luciana Caceres CHAIN PULLER 09/03/19 0909: Subjective Allergies: Coded Allergies: No Known Allergies (Unverified , 08/26/19) Subjective remains afebrile, no leukocytosis pulse ox stable on O2 2 L via NC no signs of resp distress. no use of accessory muscles CXR 08/31 Increasing right greater than left infiltrates, since prior exam repeat SARS-CoV-2 by PCR 08/30 still detected, remains in isolation Objective Last 24 Hour Vital Signs Date Time Temp Pulse Resp B/P (MAP) Pulse Ox O2 Delivery O2 Flow Rate FiO2 09/03/19 04:00 98.9 81 18 136/71 (92) 94 09/03/19 04:00 74 09/03/19 00:00 98.1 76 18 130/74 (92) 93 09/03/19 00:00 78 09/02/19 21:00 Nasal Cannula 2.0 09/02/19 20:00 64 09/02/19 20:00 97.3 85 18 127/77 (94) 94 09/02/19 16:00 79 09/02/19 16:00 98.0 80 20 107/75 (86) 96 09/02/19 12:00 97.5 75 20 119/70 (86) 96 09/02/19 12:00 57 Intake and Output 09/02/19 09/03/19 19:00 07:00 Intake Total 680 ml Output Total 450 ml Balance 230 ml Intake Oral 680 ml Output Urine Total 450 ml # Bowel Movements 3 Objective General Appearance: no apparent distress, alert , awake elderly male , forgetful Lines, tubes and drains: peripheral HEENT: normocephalic, atraumatic, anicteric, mucous membranes moist, PERRL, on O2 via NC Neck: non-tender, supple Respiratory/Chest: few isolated rhonchi , no accessory muscle use Cardiovascular/Chest: normal rate, regular rhythm Abdomen: normal bowel sounds, soft Extremities: no calf tenderness, non-pitting Neurologic: alert, responsive , forgetful Musculoskeletal: atrophy BLE Microbiology Date/Time Source Procedure Growth Status 08/31/19 12:00 Nasopharynx Coronavirus COVID-19 PCR ([facility]) - Final Complete Laboratory Tests 09/03/19 04:00: White Blood Count 5.2, Red Blood Count 4.02L, Hemoglobin 12.5L, Hematocrit 35.6L , Mean Corpuscular Volume 88, Mean Corpuscular Hemoglobin 31.2H, Mean Corpuscular Hemoglobin Concent 35.3, Red Cell Distribution Width 10.5L, Platelet Count 467H, Mean Platelet Volume 5.6L, Neutrophils (%) (Auto) 70.4, Lymphocytes (%) (Auto) 15.1L, Monocytes (%) (Auto) 9.4, Eosinophils (%) (Auto) 3.9H, Basophils (%) (Auto) 1.3, Sodium Level 137, Potassium Level 4.7, Chloride Level 106, Carbon Dioxide Level 26, Anion Gap 5, Blood Urea Nitrogen 20H, Creatinine 1.1, Estimat Glomerular Filtration Rate > 60, Glucose Level 106, Calcium Level 8.4L, Total Bilirubin 0.2, Aspartate Amino Transf (AST/SGOT) 91H, Alanine Aminotransferase (ALT/SGPT) 136H, Alkaline Phosphatase 68, Total Protein 6.2L, Albumin 2.2L, Globulin 4.0, Albumin/Globulin Ratio 0.6L Current Medications Medications (Trade) Dose Ordered Sig/Lucius Route PRN Reason Start Time Stop Time Status Last Admin Dose Admin Acetaminophen (Tylenol) 650 mg Q4H PRN ORAL Mild Pain (Pain Scale 1-3) 08/26/19 18:15 09/25/19 18:14 Acetaminophen (Tylenol) 650 mg Q4H PRN ORAL Temp >100.5 08/26/19 18:15 09/25/19 18:14 Albuterol Sulfate (Proventil MDI) 2 puff Q4H PRN INH Shortness of Breath 08/27/19 10:00 11/25/19 09:59 Aspirin (ASA) 81 mg DAILY ORAL 08/26/19 18:21 10/10/19 18:20 09/03/19 08:24 Dextrose (Dextrose 50%) 25 ml Q30M PRN IV Hypoglycemia 08/26/19 18:15 11/24/19 18:14 Dextrose (Dextrose 50%) 50 ml Q30M PRN IV Hypoglycemia 08/26/19 18:15 11/24/19 18:14 Enoxaparin Sodium (Lovenox) 60 mg Q24H SUBQ 08/27/19 14:00 11/25/19 13:59 09/02/19 13:34 Famotidine (Pepcid) 20 mg BID ORAL 08/27/19 09:00 11/25/19 08:59 09/03/19 08:24 Magnesium Hydroxide (Mom) 30 ml HSPRN PRN ORAL Constipation 08/26/19 18:15 09/25/19 18:14 09/02/19 02:11 Nitroglycerin (Ntg) 0.4 mg Q5M PRN SL Prn Chest Pain 08/26/19 18:15 09/25/19 18:14 Ondansetron HCl (Zofran) 4 mg Q6H PRN IVP Nausea & Vomiting 08/26/19 18:15 09/25/19 18:14 Sodium 1,000 ml @ 50 mls/hr Q20H IV 08/26/19 21:00 09/25/19 20:59 09/03/19 08:24 Assessment/Plan Assessment/Plan ASSESSMENT Confirmed COVID 19 infection Probably sepsis ( with fevers, leukocytosis, lactic acidosis and evidence of infection) PNA Hypoxia Transaminitis ALEC FTT , probably due to protein calorie malnutrition PLAN OF CARE tele SARS-CoV-2 by PCR detected repeated on 08/30 still defected remains in isolation completed empiric Ceftriaxone and Doxycycline 09/01, BCX 08/25 NGT , leuk and fevers resolved ID on board now CXR 08/27 - Slight interim increase in bilateral right greater than left infiltrates, likely pneumonia, over 2 days CXR 08/31 with increasing right greater than left infiltrates, since prior exam fup with CXR in am elevated CRP-7.5 and LDH -286, on 08/31; ferritin stable 325 O2 titrate to keep sat above 90% , stable on 2 L via NC MDI DVT prophylaxis ASA resumed gentle IV hydration monitor renal paramerts, lytes, correct as needed trend LFT-> trending down abd US pending GI prophylaxis dietary eval re protein supplements , pt reports loose stool after supplements , dietary re-eval for other choice of protein supplements can go to [place] if ok with attending case discussed and evaluated by supervising physician Yunier Decker MD 09/04/19 1252: Subjective Allergies: Coded Allergies: No Known Allergies (Unverified , 08/26/19) Assessment/Plan Assessment/Plan Patient seen and examined with CHAIN PULLER. Agree with above A&P as it reflects our joint deliberations. Luciana Caceres CHAIN PULLER September 03, 2019:09 Yunier Decker MD September 04, 2019 12:52
[2019-09-03 12:00] VITALS: BP 133/99
[2019-09-03] MEDS: Enoxaparin 60mg Inj SUBQ SCH (13:36)
[2019-09-03 16:00] VITALS: BP 128/77
--- NOTE | 2019-09-03 18:35 | General Progress Note ---
Assessment/Plan Problem List: (1) Healthcare-associated pneumonia ICD Codes: J18.9 - Pneumonia, unspecified organism SNOMED: 715162985, 705221959 (2) Suspected 2019 novel coronavirus infection ICD Codes: Z20.828 - Contact with and (suspected) exposure to other viral communicable diseases SNOMED: 018106382 (3) Coronary arteriosclerosis ICD Codes: I25.10 - Atherosclerotic heart disease of [place] coronary artery without angina pectoris SNOMED: 38856964 Assessment/Plan: doxanay haywoodephamzah supportive care covid +, consults appreciated, hydration Subjective Constitutional: Reports: weakness HEENT: Reports: no symptoms Cardiovascular: Reports: no symptoms Respiratory: Reports: cough Gastrointestinal/Abdominal: Reports: no symptoms Genitourinary: Reports: no symptoms Neurologic/Psychiatric: Reports: no symptoms Endocrine: Reports: no symptoms Allergies: Coded Allergies: No Known Allergies (Unverified , 08/26/19) Objective Last 24 Hour Vital Signs Date Time Temp Pulse Resp B/P (MAP) Pulse Ox O2 Delivery O2 Flow Rate FiO2 09/03/19 16:00 98.0 86 20 128/77 (94) 94 09/03/19 16:00 77 09/03/19 12:00 97.5 87 20 133/99 (110) 96 09/03/19 12:00 52 09/03/19 09:00 Nasal Cannula 2.0 09/03/19 08:00 97.5 78 20 110/86 (94) 96 09/03/19 08:00 79 09/03/19 04:00 98.9 81 18 136/71 (92) 94 09/03/19 04:00 74 09/03/19 00:00 98.1 76 18 130/74 (92) 93 09/03/19 00:00 78 09/02/19 21:00 Nasal Cannula 2.0 09/02/19 20:00 64 09/02/19 20:00 97.3 85 18 127/77 (94) 94 Intake and Output 09/02/19 09/03/19 18:59 06:59 Intake Total 680 ml Output Total 450 ml Balance 230 ml Intake Oral 680 ml Output Urine Total 450 ml # Bowel Movements 3 Laboratory Tests 09/03/19 04:00: White Blood Count 5.2, Red Blood Count 4.02L, Hemoglobin 12.5L, Hematocrit 35.6L , Mean Corpuscular Volume 88, Mean Corpuscular Hemoglobin 31.2H, Mean Corpuscular Hemoglobin Concent 35.3, Red Cell Distribution Width 10.5L, Platelet Count 467H, Mean Platelet Volume 5.6L, Neutrophils (%) (Auto) 70.4, Lymphocytes (%) (Auto) 15.1L, Monocytes (%) (Auto) 9.4, Eosinophils (%) (Auto) 3.9H, Basophils (%) (Auto) 1.3, Sodium Level 137, Potassium Level 4.7, Chloride Level 106, Carbon Dioxide Level 26, Anion Gap 5, Blood Urea Nitrogen 20H, Creatinine 1.1, Estimat Glomerular Filtration Rate > 60, Glucose Level 106, Calcium Level 8.4L, Total Bilirubin 0.2, Aspartate Amino Transf (AST/SGOT) 91H, Alanine Aminotransferase (ALT/SGPT) 136H, Alkaline Phosphatase 68, Total Protein 6.2L, Albumin 2.2L, Globulin 4.0, Albumin/Globulin Ratio 0.6L Height (Feet): 5 Height (Inches): 6.00 Weight (Pounds): 120 General Appearance: no apparent distress, lethargic EENT: normal ENT inspection Neck: normal alignment Cardiovascular: normal rate Respiratory/Chest: lungs clear Abdomen: no organomegaly Edema: no edema noted Arm (L), no edema noted Arm (R), no edema noted Leg (L), no edema noted Leg (R), no edema noted Pedal (L), no edema noted Pedal (R), no edema noted Generalized 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
--- NOTE | 2019-09-03 19:10 | NUR ---
HAND-OFF: Report given to Li/RN. Patient is in stable condition. Endorsed plan of care.
--- NOTE | 2019-09-03 19:14 | Infectious Diseases Prog Note ---
Assessment/Plan Assessment/Plan ASSESSMENT AND PLAN: 1. covid-19 virus infection and pna, pcr +, ? cap, sepsis, fevers, leukocytosis - rocephin and doxycycline - finish course - clinically stable, fevers resolved - no indication for hydroxychloroquine - monitor labs and chest x-ray - chest x-ray slt worse but no fevers and no sob 2. BPH. 3. Prostatectomy. 4. Cardiovascular disease. 5. No history of diabetes or hypertension. 6. The patient did have elevated lactic acid, possible sepsis with fevers, SIRS criteria. 7. No known drug allergies. 8. Social history is negative. 9. Family history is noncontributory. 10. MAR was noted. 11. Case discussed with RN. 12. Continue treatment per primary consultants. Subjective Constitutional: Denies: fever HEENT: Denies: congestion Respiratory: Denies: shortness of breath Cardiovascular: Denies: chest pain Gastrointestinal/Abdominal: Denies: nausea, vomiting, diarrhea Genitourinary: Reports: other - no pablo Neurologic: Denies: headache Psychiatric: Denies: depression Skin: Denies: rash Hematologic: Denies: bleeding Musculoskeletal: Denies: pain Allergies: Coded Allergies: No Known Allergies (Unverified , 08/26/19) Objective Vital Signs Last 24 Hour Vital Signs Date Time Temp Pulse Resp B/P (MAP) Pulse Ox O2 Delivery O2 Flow Rate FiO2 09/03/19 16:00 98.0 86 20 128/77 (94) 94 09/03/19 16:00 77 09/03/19 12:00 97.5 87 20 133/99 (110) 96 09/03/19 12:00 52 09/03/19 09:00 Nasal Cannula 2.0 09/03/19 08:00 97.5 78 20 110/86 (94) 96 09/03/19 08:00 79 09/03/19 04:00 98.9 81 18 136/71 (92) 94 09/03/19 04:00 74 09/03/19 00:00 98.1 76 18 130/74 (92) 93 09/03/19 00:00 78 09/02/19 21:00 Nasal Cannula 2.0 09/02/19 20:00 64 09/02/19 20:00 97.3 85 18 127/77 (94) 94 Height (Feet): 5 Height (Inches): 6.00 Weight (Pounds): 120 General Appearance: no acute distress HEENT: normocephalic, atraumatic, anicteric, mucous membranes moist Respiratory/Chest: no respiratory distress, no accessory muscle use, crackles/ rales, rhonchi - bilaterally Cardiovascular: normal rate, regular rhythm, no gallop/murmur, no JVD Abdomen: normal bowel sounds, soft, non tender, no organomegaly, non distended Genitourinary: other - no pablo Extremities: no cyanosis Skin: no rash Neurologic/Psychiatric: car 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 Reticular retrocardiac an peripheral left midlung opacities are slightly more prominent. Impression: Slight interim increase in bilateral right greater than left infiltrates, likely pneumonia, over 2 days Chest x-ray - 09/01/19- Indication: Cough Technique: One view of the chest Comparison: 08/28/2019 Findings: Again demonstrated is right mid and lower lung infiltrate, appearing slightly more extensive than slightly more densely consolidated than on the previous study. There is a suggestion of a small pleural effusion on the right now present. Peripheral infiltrate in the left midlung is less extensive than on the right, but increased from the prior exam. The left pleural space is clear. The heart size is normal. Impression: Increasing right greater than left infiltrates, since prior exam of 4 days earlier Microbiology Date/Time Source Procedure Growth Status 08/26/19 15:24 Blood Blood Culture - Final NO GROWTH AFTER 5 DAYS Complete 08/31/19 12:00 Nasopharynx Coronavirus COVID-19 PCR ([facility]) - Final Complete 08/26/19 19:10 Rectum VRE Culture - Final NO VANCOMYCIN RESISTANT ENTEROCOCCUS ... Complete Laboratory Tests Test 09/03/19 04:00 White Blood Count 5.2 K/UL (4.8-10.8) Red Blood Count 4.02 M/UL (4.70-6.10) L Hemoglobin 12.5 G/DL (14.2-18.0) L Hematocrit 35.6 % (42.0-52.0) L Mean Corpuscular Volume 88 FL (80-99) Mean Corpuscular Hemoglobin 31.2 PG (27.0-31.0) H Mean Corpuscular Hemoglobin Concent 35.3 G/DL (32.0-36.0) Red Cell Distribution Width 10.5 % (11.6-14.8) L Platelet Count 467 K/UL (150-450) H Mean Platelet Volume 5.6 FL (6.5-10.1) L Neutrophils (%) (Auto) 70.4 % (45.0-75.0) Lymphocytes (%) (Auto) 15.1 % (20.0-45.0) L Monocytes (%) (Auto) 9.4 % (1.0-10.0) Eosinophils (%) (Auto) 3.9 % (0.0-3.0) H Basophils (%) (Auto) 1.3 % (0.0-2.0) Sodium Level 137 MMOL/L (136-145) Potassium Level 4.7 MMOL/L (3.5-5.1) Chloride Level 106 MMOL/L (98-107) Carbon Dioxide Level 26 MMOL/L (21-32) Anion Gap 5 mmol/L (5-15) Blood Urea Nitrogen 20 mg/dL (7-18) H Creatinine 1.1 MG/DL (0.55-1.30) Estimat Glomerular Filtration Rate > 60 mL/min (>60) Glucose Level 106 MG/DL (74-106) Calcium Level 8.4 MG/DL (8.5-10.1) L Total Bilirubin 0.2 MG/DL (0.2-1.0) Aspartate Amino Transf (AST/SGOT) 91 U/L (15-37) H Alanine Aminotransferase (ALT/SGPT) 136 U/L (12-78) H Alkaline Phosphatase 68 U/L (46-116) Total Protein 6.2 G/DL (6.4-8.2) L Albumin 2.2 G/DL (3.4-5.0) L Globulin 4.0 g/dL Albumin/Globulin Ratio 0.6 (1.0-2.7) L Current Medications Medications (Trade) Dose Ordered Sig/Lucius Route PRN Reason Start Time Stop Time Status Last Admin Dose Admin Acetaminophen (Tylenol) 650 mg Q4H PRN ORAL Mild Pain (Pain Scale 1-3) 08/26/19 18:15 09/25/19 18:14 Acetaminophen (Tylenol) 650 mg Q4H PRN ORAL Temp >100.5 08/26/19 18:15 09/25/19 18:14 Albuterol Sulfate (Proventil MDI) 2 puff Q4H PRN INH Shortness of Breath 08/27/19 10:00 11/25/19 09:59 Aspirin (ASA) 81 mg DAILY ORAL 08/26/19 18:21 10/10/19 18:20 09/03/19 08:24 Dextrose (Dextrose 50%) 25 ml Q30M PRN IV Hypoglycemia 08/26/19 18:15 11/24/19 18:14 Dextrose (Dextrose 50%) 50 ml Q30M PRN IV Hypoglycemia 08/26/19 18:15 11/24/19 18:14 Enoxaparin Sodium (Lovenox) 60 mg Q24H SUBQ 08/27/19 14:00 11/25/19 13:59 09/03/19 13:36 Famotidine (Pepcid) 20 mg BID ORAL 08/27/19 09:00 11/25/19 08:59 09/03/19 17:15 Magnesium Hydroxide (Mom) 30 ml HSPRN PRN ORAL Constipation 08/26/19 18:15 09/25/19 18:14 09/02/19 02:11 Nitroglycerin (Ntg) 0.4 mg Q5M PRN SL Prn Chest Pain 08/26/19 18:15 09/25/19 18:14 Ondansetron HCl (Zofran) 4 mg Q6H PRN IVP Nausea & Vomiting 08/26/19 18:15 09/25/19 18:14 Sodium 1,000 ml @ 50 mls/hr Q20H IV 08/26/19 21:00 09/25/19 20:59 09/03/19 08:24 Marsha Rivera MD September 03, 2019 19:14
--- NOTE | 2019-09-03 19:43 | NUR ---
NURSE NOTES: Received report from CLAUDE Dozier. Patient is awake, alert and oriented x 4. On regular, thin liquids, can swallow whole pill. monitoring engineer is on, shows sinus rhythm, no chest pain at this time. On oxygen via nasal cannula @ 2lpm with no shortness or difficulty of breathing reported. IV site is on right hand g-22 IV fluid of 1/2 NS + 20 meqs KCL @ 50 cc/hour. Safety measures are in placed, bed in lowest and lock position. Bed alarm is on, side rails up x 2. Call light and bedside table within reach. Will continue plan of care.
[2019-09-03 20:00] VITALS: BP 135/72
[2019-09-04] VITALS: BP 115/73
[2019-09-04 04:00] VITALS: BP 140/82
[2019-09-04] MEDS: 1/2NS w/KCl 20mEq 1000ml 1,000 ML IV SCH (04:10)
--- NOTE | 2019-09-04 07:29 | NUR ---
HAND-OFF: Report given to CLAUDE Vaughn. Patient is on bed, asleep. No complaints made at this time, no respiratory distress noted. Plan of care endorsed.
[2019-09-04 08:00] VITALS: BP 132/79
[2019-09-04] MEDS: Aspirin Baby 81mg ORAL SCH (08:06)
--- NOTE | 2019-09-04 09:32 | Pulmonology Progress Note ---
Luciana Caceres IRON WORKER APPRENTICE 09/04/19 0932: Subjective Constitutional: Denies: fever Gastrointestinal/Abdominal: Denies: nausea, vomiting, diarrhea Psychiatric: Denies: depression Skin: Denies: rash Musculoskeletal: Denies: pain Allergies: Coded Allergies: No Known Allergies (Unverified , 08/26/19) Subjective no signs of resp distress. no use of accessory muscles in isolation remains afebrile, no leukocytosis pulse ox stable on O2 2 L via NC CXR 08/31 Increasing right greater than left infiltrates, since prior exam CXR for this am pending repeat SARS-CoV-2 by PCR 08/30 still detected, remains in isolation Objective Last 24 Hour Vital Signs Date Time Temp Pulse Resp B/P (MAP) Pulse Ox O2 Delivery O2 Flow Rate FiO2 09/04/19 08:00 97.7 81 18 132/79 (96) 94 09/04/19 07:53 84 09/04/19 04:00 97.7 64 19 140/82 (101) 94 09/04/19 04:00 52 09/04/19 00:00 97.5 76 18 115/73 (87) 95 09/04/19 00:00 77 09/03/19 21:00 Nasal Cannula 2.0 09/03/19 20:00 55 09/03/19 20:00 97.8 81 19 135/72 (93) 94 09/03/19 16:00 98.0 86 20 128/77 (94) 94 09/03/19 16:00 77 09/03/19 12:00 97.5 87 20 133/99 (110) 96 09/03/19 12:00 52 Intake and Output 09/03/19 09/04/19 19:00 07:00 Intake Total 150 ml 790 ml Output Total 300 ml Balance 150 ml 490 ml Intake Oral 100 ml 240 ml IV Total 50 ml 550 ml Output Urine Total 300 ml # Voids 1 2 Objective General Appearance: no apparent distress, alert , awake elderly male , forgetful Lines, tubes and drains: peripheral HEENT: normocephalic, atraumatic, anicteric, mucous membranes moist, PERRL, on O2 via NC Neck: non-tender, supple Respiratory/Chest: few isolated rhonchi , no accessory muscle use Cardiovascular/Chest: normal rate, regular rhythm Abdomen: normal bowel sounds, soft Extremities: no calf tenderness, non-pitting Neurologic: alert, responsive , forgetful Musculoskeletal: atrophy BLE Current Medications Medications (Trade) Dose Ordered Sig/Lucius Route PRN Reason Start Time Stop Time Status Last Admin Dose Admin Acetaminophen (Tylenol) 650 mg Q4H PRN ORAL Mild Pain (Pain Scale 1-3) 08/26/19 18:15 09/25/19 18:14 Acetaminophen (Tylenol) 650 mg Q4H PRN ORAL Temp >100.5 08/26/19 18:15 09/25/19 18:14 Albuterol Sulfate (Proventil MDI) 2 puff Q4H PRN INH Shortness of Breath 08/27/19 10:00 11/25/19 09:59 Aspirin (ASA) 81 mg DAILY ORAL 08/26/19 18:21 10/10/19 18:20 09/04/19 08:06 Dextrose (Dextrose 50%) 25 ml Q30M PRN IV Hypoglycemia 08/26/19 18:15 11/24/19 18:14 Dextrose (Dextrose 50%) 50 ml Q30M PRN IV Hypoglycemia 08/26/19 18:15 11/24/19 18:14 Enoxaparin Sodium (Lovenox) 60 mg Q24H SUBQ 08/27/19 14:00 11/25/19 13:59 09/03/19 13:36 Famotidine (Pepcid) 20 mg BID ORAL 08/27/19 09:00 11/25/19 08:59 09/04/19 08:06 Magnesium Hydroxide (Mom) 30 ml HSPRN PRN ORAL Constipation 08/26/19 18:15 09/25/19 18:14 09/02/19 02:11 Nitroglycerin (Ntg) 0.4 mg Q5M PRN SL Prn Chest Pain 08/26/19 18:15 09/25/19 18:14 Ondansetron HCl (Zofran) 4 mg Q6H PRN IVP Nausea & Vomiting 08/26/19 18:15 09/25/19 18:14 Sodium 1,000 ml @ 50 mls/hr Q20H IV 08/26/19 21:00 09/25/19 20:59 09/04/19 04:10 Assessment/Plan Assessment/Plan ASSESSMENT Confirmed COVID 19 infection Probably sepsis ( with fevers, leukocytosis, lactic acidosis and evidence of infection) PNA Hypoxia Transaminitis ALEC FTT , probably due to protein calorie malnutrition PLAN OF CARE tele SARS-CoV-2 by PCR detected repeated COVID 19 on 08/30 still defected remains in isolation completed empiric Ceftriaxone and Doxycycline 09/01, BCX 08/25 NGT , leuk and fevers resolved ID on board now CXR 08/27 - Slight interim increase in bilateral right greater than left infiltrates, likely pneumonia, over 2 days CXR 08/31 with increasing right greater than left infiltrates, since prior exam fup with CXR this am elevated CRP-7.5 and LDH -286, on 08/31; ferritin stable 325 , trend further O2 titrate to keep sat above 90% , stable on 2 L via NC MDI DVT prophylaxis ASA resumed gentle IV hydration monitor renal paramerts, lytes, correct as needed trend LFT-> trending down abd US pending GI prophylaxis dietary eval re protein supplements , pt reports loose stool after supplements , dietary re-eval for other choice of protein supplements can go to [place] if ok with attending case discussed and evaluated by supervising physician Yunier Decker MD 09/04/19 1252: Subjective Allergies: Coded Allergies: No Known Allergies (Unverified , 08/26/19) Assessment/Plan Assessment/Plan Patient seen and examined with IRON WORKER APPRENTICE. Agree with above A&P as it reflects our joint deliberations. Luciana Caceres IRON WORKER APPRENTICE September 04, 2019 09:32 Yunier Decker MD September 04, 2019 12:52
--- NOTE | 2019-09-04 10:46 | Diagnostic Imaging Report ---
Indication: Shortness of breath Technique: One view of the chest Comparison: 09/01/2019 Findings: Bilateral peripheral infiltrates appear slightly less extensive than on the prior study. The heart size is normal. Impression: Over 3 days, interim slight improvement of previously demonstrated bilateral peripheral infiltrates
--- NOTE | 2019-09-04 11:25 | NUR ---
RADIOLOGY DEPT., CHEST X-RAY DONE.-P.DYE
[2019-09-04 12:00] VITALS: BP 130/69
[2019-09-04] MEDS: Enoxaparin 60mg Inj SUBQ SCH (14:12)
[2019-09-04 16:00] VITALS: BP 129/71
--- NOTE | 2019-09-04 16:00 | NUR ---
ST Weekly Progress and Discharge Summary. Pt currently on a soft-easy chew w/ thin liquids diet. Pt is not having any difficulties w/ medication management, and PO intake has been slowly improving. at this time, Pt is on safest and least restrictive diet consistency and no further ST intervention is indicated at this time. Pt has been educated and trained on aspiration precautions and safe swallow compensatory strategies. Per CXR 09/04/19; Comparison: 09/01/2019 Findings: Bilateral peripheral infiltrates appear slightly less extensive than on the prior study. The heart size is normal. Impression: Over 3 days, interim slight improvement of previously demonstrated bilateral peripheral infiltrates Per RD on 08/31/19 ADDITIONAL RECOMMENDATIONS: * Per assisted living [facility]: Wt from August = 150lbs * [place] s/w or ham cheese s/w on all meals -> per junior linux systems administrator at assisted living [facility], pt only liked eating turkey or cheese s/w as long as pt has been residing at the facility * MVI x 1 as supplement * Ensure Enlive BID w/ meals, monitor acceptance
--- NOTE | 2019-09-04 16:15 | NUR ---
NURSE NOTES: PT APPEARS MORE COMFORTABLE , AFEBRILE, NO RESPIRATORY DISTRESS. APPEARS ASLEEP, EASILY AROUSABLE, CHANGED PT KEPT PT CLEAN DRY AND COMFORTABLE, TURNED PATIENT TOWARDS RIGHT SIDE. BED IN LOWEST POSITION, LOCKED. BED ALARM ON. IV RUNNING. CALL LIGHT WITHIN REACH. Addendum: 09/04/19 at 1618 by MADI ALBRIGHT RN THIS NOTE IS FOR 211-1
--- NOTE | 2019-09-04 19:00 | NUR ---
NURSE NOTES: Received report from CLAUDE Vaughn. Patient is asleep arousable to name, lying in semi naranjo's; resting comfortably. A/Ox4. Denies pain at this time. No signs of acute distress noted. Checked IV site and flushed. No erythema, bleeding or infiltration noted. Bed at lowest position, brakes on, bed alarm on, sideailsx3. Call light within reach. Will continue to monitor.
--- NOTE | 2019-09-04 19:45 | General Progress Note ---
Assessment/Plan Problem List: (1) Healthcare-associated pneumonia ICD Codes: J18.9 - Pneumonia, unspecified organism SNOMED: 624317963, 678517775 (2) Suspected 2019 novel coronavirus infection ICD Codes: Z20.828 - Contact with and (suspected) exposure to other viral communicable diseases SNOMED: 974187937 (3) Coronary arteriosclerosis ICD Codes: I25.10 - Atherosclerotic heart disease of [place] coronary artery without angina pectoris SNOMED: 90992408 Assessment/Plan: doxanay haywoodephamzah supportive care covid +, consults appreciated, hydration Subjective Constitutional: Reports: weakness HEENT: Reports: no symptoms Cardiovascular: Reports: no symptoms Respiratory: Reports: cough Genitourinary: Reports: no symptoms Neurologic/Psychiatric: Reports: no symptoms Endocrine: Reports: no symptoms Allergies: Coded Allergies: No Known Allergies (Unverified , 08/26/19) Objective Last 24 Hour Vital Signs Date Time Temp Pulse Resp B/P (MAP) Pulse Ox O2 Delivery O2 Flow Rate FiO2 09/04/19 16:00 97.7 81 18 129/71 (90) 94 09/04/19 15:27 101 09/04/19 12:00 97.7 67 18 130/69 (89) 94 09/04/19 11:41 72 09/04/19 09:00 Nasal Cannula 2.0 09/04/19 08:00 97.7 81 18 132/79 (96) 94 09/04/19 07:53 84 09/04/19 04:00 97.7 64 19 140/82 (101) 94 09/04/19 04:00 52 09/04/19 00:00 97.5 76 18 115/73 (87) 95 09/04/19 00:00 77 09/03/19 21:00 Nasal Cannula 2.0 09/03/19 20:00 55 09/03/19 20:00 97.8 81 19 135/72 (93) 94 Intake and Output 09/03/19 09/04/19 19:00 07:00 Intake Total 150 ml 790 ml Output Total 300 ml Balance 150 ml 490 ml Intake Oral 100 ml 240 ml IV Total 50 ml 550 ml Output Urine Total 300 ml # Voids 1 2 Height (Feet): 5 Height (Inches): 6.00 Weight (Pounds): 120 General Appearance: no apparent distress, alert EENT: normal ENT inspection Neck: normal alignment Cardiovascular: normal rate, regular rhythm Respiratory/Chest: lungs clear Abdomen: soft Edema: no edema noted Arm (L), no edema noted Arm (R), no edema noted Leg (L), no edema noted Leg (R), no edema noted Pedal (L), no edema noted Pedal (R), no edema noted Generalized Earle Jaramillo MD September 04, 2019 19:45
[2019-09-04 20:00] VITALS: BP 119/75
[2019-09-05] VITALS: BP 122/69
[2019-09-05] MEDS: 1/2NS w/KCl 20mEq 1000ml 1,000 ML IV SCH ×2 (00:38→20:57)
[2019-09-05 04:50] VITALS: BP 117/73
--- NOTE | 2019-09-05 07:30 | NUR ---
HAND-OFF: Report given to CLAUDE Singh. Plan of care endorsed.
[2019-09-05 07:43] LABS: BASOPHILS % (AUTO) 1.3 % (0.0-2.0); EOSINOPHILS % (AUTO) 2.9 % (0.0-3.0); HEMATOCRIT 38.5 % (42.0-52.0); HEMOGLOBIN 13.5 G/DL (14.2-18.0); LYMPHOCYTES % (AUTO) 21.5 % (20.0-45.0); MEAN CORPUSCULAR VOLUME 90 FL (80-99); MONOCYTES % (AUTO) 6.6 % (1.0-10.0); NEUTROPHILS % (AUTO) 67.7 % (45.0-75.0); PLATELET COUNT 478 K/UL (150-450); RED BLOOD COUNT 4.27 M/UL (4.70-6.10); RED CELL DISTRIBUTION WIDTH 11.1 % (11.6-14.8); WHITE BLOOD COUNT 4.8 K/UL (4.8-10.8)
[2019-09-05 08:00] VITALS: BP 140/77
[2019-09-05] MEDS: Aspirin Baby 81mg ORAL SCH (09:00)
--- NOTE | 2019-09-05 09:20 | Pulmonology Progress Note ---
Luciana Caceres TIP STITCHER 09/05/19 0920: Subjective Constitutional: Denies: fever Gastrointestinal/Abdominal: Denies: nausea, vomiting, diarrhea Psychiatric: Denies: depression Skin: Denies: rash Musculoskeletal: Denies: pain Allergies: Coded Allergies: No Known Allergies (Unverified , 08/26/19) Subjective CXR 09/03 Over 3 days, interim slight improvement of previously demonstrated bilateral peripheral infiltrates repeat SARS-CoV-2 by PCR 08/30 still detected, remains in isolation no signs of resp distress. no use of accessory muscles pulse ox stable on O2 2 L via NC remains afebrile, no leukocytosis Objective Last 24 Hour Vital Signs Date Time Temp Pulse Resp B/P (MAP) Pulse Ox O2 Delivery O2 Flow Rate FiO2 09/05/19 04:50 97.9 69 17 117/73 (88) 97 09/05/19 04:00 52 09/05/19 00:00 97.5 78 18 122/69 (86) 92 09/05/19 00:00 61 09/04/19 21:00 Nasal Cannula 2.0 09/04/19 20:00 97.7 75 17 119/75 (90) 97 09/04/19 20:00 102 09/04/19 16:00 97.7 81 18 129/71 (90) 94 09/04/19 15:27 101 09/04/19 12:00 97.7 67 18 130/69 (89) 94 09/04/19 11:41 72 Intake and Output 09/04/19 09/05/19 19:00 07:00 Intake Total 600 ml Balance 600 ml Intake Oral 600 ml # Voids 2 2 # Bowel Movements 1 Objective General Appearance: no apparent distress, alert , awake elderly male , forgetful Lines, tubes and drains: peripheral HEENT: normocephalic, atraumatic, anicteric, mucous membranes moist, PERRL, on O2 via NC Neck: non-tender, supple Respiratory/Chest: few isolated rhonchi , no accessory muscle use Cardiovascular/Chest: normal rate, regular rhythm Abdomen: normal bowel sounds, soft Extremities: no calf tenderness, non-pitting Neurologic: alert, responsive , forgetful Musculoskeletal: atrophy BLE Laboratory Tests 09/05/19 05:15: White Blood Count 4.8, Red Blood Count 4.27L, Hemoglobin 13.5L, Hematocrit 38.5L , Mean Corpuscular Volume 90, Mean Corpuscular Hemoglobin 31.6H, Mean Corpuscular Hemoglobin Concent 35.1, Red Cell Distribution Width 11.1L, Platelet Count 478H, Mean Platelet Volume 5.3L, Neutrophils (%) (Auto) 67.7, Lymphocytes (%) (Auto) 21.5, Monocytes (%) (Auto) 6.6, Eosinophils (%) (Auto) 2.9, Basophils (%) (Auto) 1.3, Lactate Dehydrogenase 251H, C-Reactive Protein, Quantitative 2.0H Current Medications Medications (Trade) Dose Ordered Sig/Lucius Route PRN Reason Start Time Stop Time Status Last Admin Dose Admin Acetaminophen (Tylenol) 650 mg Q4H PRN ORAL Mild Pain (Pain Scale 1-3) 08/26/19 18:15 09/25/19 18:14 Acetaminophen (Tylenol) 650 mg Q4H PRN ORAL Temp >100.5 08/26/19 18:15 09/25/19 18:14 Albuterol Sulfate (Proventil MDI) 2 puff Q4H PRN INH Shortness of Breath 08/27/19 10:00 11/25/19 09:59 Aspirin (ASA) 81 mg DAILY ORAL 08/26/19 18:21 10/10/19 18:20 09/04/19 08:06 Dextrose (Dextrose 50%) 25 ml Q30M PRN IV Hypoglycemia 08/26/19 18:15 11/24/19 18:14 Dextrose (Dextrose 50%) 50 ml Q30M PRN IV Hypoglycemia 08/26/19 18:15 11/24/19 18:14 Enoxaparin Sodium (Lovenox) 60 mg Q24H SUBQ 08/27/19 14:00 11/25/19 13:59 09/04/19 14:12 Famotidine (Pepcid) 20 mg BID ORAL 08/27/19 09:00 11/25/19 08:59 09/04/19 17:09 Magnesium Hydroxide (Mom) 30 ml HSPRN PRN ORAL Constipation 08/26/19 18:15 09/25/19 18:14 09/02/19 02:11 Nitroglycerin (Ntg) 0.4 mg Q5M PRN SL Prn Chest Pain 08/26/19 18:15 09/25/19 18:14 Ondansetron HCl (Zofran) 4 mg Q6H PRN IVP Nausea & Vomiting 08/26/19 18:15 09/25/19 18:14 Sodium 1,000 ml @ 50 mls/hr Q20H IV 08/26/19 21:00 09/25/19 20:59 09/05/19 00:38 Assessment/Plan Assessment/Plan ASSESSMENT Confirmed COVID 19 infection Probably sepsis ( with fevers, leukocytosis, lactic acidosis and evidence of infection) PNA Hypoxia Transaminitis ALEC FTT , probably due to protein calorie malnutrition PLAN OF CARE tele SARS-CoV-2 by PCR detected repeated COVID 19 on 08/30 still defected remains in isolation completed empiric Ceftriaxone and Doxycycline 09/01, BCX 08/25 NGT , leuk and fevers resolved ID on board now CXR 08/27 - Slight interim increase in bilateral right greater than left infiltrates, likely pneumonia, over 2 days CXR 08/31 with increasing right greater than left infiltrates, since prior exam CXR 09/03 - over 3 days, interim slight improvement of previously demonstrated bilateral peripheral infiltrates elevated CRP-7.5 and LDH -286, on 08/31; ferritin stable 325 , trend further 09/03 CRP 2.0, LDH 251; O2 titrate to keep sat above 90% , stable on 2 L via NC MDI DVT prophylaxis ASA resumed gentle IV hydration monitor renal paramerts, lytes, correct as needed trend LFT-> trending down abd US pending GI prophylaxis dietary eval re protein supplements , pt reports loose stool after supplements , dietary re-eval for other choice of protein supplements can go to [facility] if ok with attending case discussed and evaluated by supervising physician Yunier Decker MD 09/05/19 1714: Subjective Allergies: Coded Allergies: No Known Allergies (Unverified , 08/26/19) Assessment/Plan Assessment/Plan Patient seen and examined with TIP STITCHER, agree with above A&P as it reflects our joint deliberations. AFVSS on 2L, doing well, supportive care, DVT Px, dispo planning. Infiltrates need to be followed to resolution. Luciana Caceres NP September 05, 2019 09:20 Yunier Decker MD September 05, 2019 17:14
--- NOTE | 2019-09-05 09:49 | NUR ---
RD ASSESSMENT & RECOMMENDATIONS SEE CARE ACTIVITY FOR COMPLETE ASSESSMENT DAILY ESTIMATED NEEDS: Needs based on sepsis/ 68kg 25-30 kcals/kg 5576-1152 total kcals 1-2 g protein/kg 68-136 g total protein 25-30 mL/kg 2253-4229 total fluid mLs NUTRITION DIAGNOSIS: Inadequate oral intake R/T decreased appetite, clinical condition, specific food preferences? as evidenced by poor and variable intake, now improved since adm, admitted w/ c/o FTT. 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
--- NOTE | 2019-09-05 11:01 | NUR ---
CASE MANAGEMENT:REVIEW 09/05/19 SI: BILATERAL COVID 19 PNA COVID 19 DETECTED X2 97.9 69 17 117/73 97% ON 2L/NC IS: IVF@50/HR DOXYCYCLINE PO Q12 LOVENOX SQ Q24 PEPCID PO BID ASA PO QD : TELEMETRY STATUS DCP: PATIENT IS FROM [facility] PLAN: LAST TEMP ~ 08/28/19 T~99.7 UNABLE TO RETURN TO " [facility]" LONG PATIENT IS COVID POSITIVE WILL REFER TO COVID 19 SNF
--- NOTE | 2019-09-05 11:24 | NUR ---
DISCHARGE PLANNING DISCHARGE PLAN DISCUSSED WITH DR TOMAS GUERRA [facility] WILL NOT ACCEPT PATIENT BACK LONG HE IS COVID POSITIVE PATIENT HAS BEEN [facility]FERRED TO [facility] LUIS FERNANDO T: [phone] AND [facility] S[facility] T: [phone]
[2019-09-05 12:00] VITALS: BP 116/74
--- NOTE | 2019-09-05 13:40 | NUR ---
DISCHARGE PLAN RECEIVED CALL FROM [facility] WILL ACCEPT THIS PATIENT. THEY ARE RESERVING ROOM 143 A FOR TOMORROW Addendum: 09/05/19 at 1350 by RANCHO MAZARIEGOS LVN LVN DISCHARGE PLAN DISCUSSED WITH PATIENT VIA TELEPHONE AND HE IS IN AGREEMENT WITH PLAN TO [facility]
[2019-09-05] MEDS: Enoxaparin 60mg Inj SUBQ SCH (15:00)
--- NOTE | 2019-09-05 15:41 | Diagnostic Imaging Report ---
Indication: Abdominal pain, abnormal liver function tests Technique: Kaur-scale and duplex images of the upper abdomen were obtained Comparison: none Findings: Gallbladder is nondistended, contains gallstones. Sonographic North's sign is negative. Common bile duct measures 6 mm in diameter. No intrahepatic biliary ductal dilatation. Liver demonstrates normal echogenicity, no focal abnormality. Portal vein and hepatic veins are patent. Pancreas is unremarkable. Spleen is unremarkable. Left kidney measures 8.8 cm in length. Right kidney measures 7.6 cm length. Both kidneys demonstrate normal echogenicity. There is no hydronephrosis. No focal abnormality . Abdominal aorta is obscured by bowel gas . Impression: Cholelithiasis. Negative for dilated bile ducts Somewhat small kidneys bilaterally. No hydronephrosis Nonvisualized abdominal aorta
[2019-09-05 16:00] VITALS: BP 136/83
--- NOTE | 2019-09-05 19:50 | NUR ---
NURSE NOTES: Received pt from CLAUDE Singh. Pt asleep. Bed in lowest position. Call light within reach. Will continue to monitor.
--- NOTE | 2019-09-05 19:50 | NUR ---
NURSE NOTES: Report given to CLAUDE Delcid. Pt. AOx4. Watching TV. No complaints of pain or SOB
[2019-09-05 20:00] VITALS: BP 133/80
--- NOTE | 2019-09-05 20:09 | Infectious Diseases Prog Note ---
Assessment/Plan Assessment/Plan ASSESSMENT AND PLAN: 1. covid-19 virus infection and pna, pcr + x 2, ? cap, sepsis, fevers, leukocytosis - s/p rocephin and doxycycline - clinically stable, fevers resolved - no indication for hydroxychloroquine - monitor labs and chest x-ray - chest x-ray - 09/04/19 - improved 2. BPH. 3. Prostatectomy. 4. Cardiovascular disease. 5. No history of diabetes or hypertension. 6. The patient did have elevated lactic acid, possible sepsis with fevers, SIRS criteria. 7. No known drug allergies. 8. Social history is negative. 9. Family history is noncontributory. 10. MAR was noted. 11. Case discussed with RN. 12. Continue treatment per primary consultants. Subjective Constitutional: Denies: fever HEENT: Denies: congestion Respiratory: Denies: shortness of breath Cardiovascular: Denies: chest pain Gastrointestinal/Abdominal: Denies: nausea, vomiting, diarrhea Genitourinary: Reports: other - no pablo Neurologic: Denies: headache Psychiatric: Denies: depression Skin: Denies: rash Hematologic: Denies: bleeding Musculoskeletal: Denies: pain Allergies: Coded Allergies: No Known Allergies (Unverified , 08/26/19) Objective Vital Signs Last 24 Hour Vital Signs Date Time Temp Pulse Resp B/P (MAP) Pulse Ox O2 Delivery O2 Flow Rate FiO2 09/05/19 16:00 96.7 81 19 136/83 (100) 95 09/05/19 16:00 75 09/05/19 12:00 96.6 73 19 116/74 (88) 95 09/05/19 12:00 71 09/05/19 09:00 Nasal Cannula 2.0 09/05/19 08:00 88 09/05/19 08:00 96.7 84 20 140/77 (98) 96 09/05/19 04:50 97.9 69 17 117/73 (88) 97 09/05/19 04:00 52 09/05/19 00:00 97.5 78 18 122/69 (86) 92 09/05/19 00:00 61 09/04/19 21:00 Nasal Cannula 2.0 Height (Feet): 5 Height (Inches): 6.00 Weight (Pounds): 120 General Appearance: no acute distress HEENT: normocephalic, atraumatic, anicteric, mucous membranes moist Respiratory/Chest: crackles/rales, rhonchi - bilaterally Cardiovascular: normal rate, regular rhythm, no gallop/murmur, no JVD Abdomen: normal bowel sounds, soft, non tender, no organomegaly, non distended Genitourinary: other - no pablo Extremities: no cyanosis Skin: no rash Neurologic/Psychiatric: senior principal II-XII grossly normal, alert, responsive Lymphatic: no neck adenopathy Musculoskeletal: no effusion Objective Chest x-ray - 08/28/19 - Procedure: XRAY Chest 1v Indication: Shortness of breath Technique: One view of the chest Comparison: 08/26/2019 Findings: Triangular infiltrate in the periphery of the right lung is probably slightly more extensive, extending farther cephalad. Reticular retrocardiac an peripheral left midlung opacities are slightly more prominent. Impression: Slight interim increase in bilateral right greater than left infiltrates, likely pneumonia, over 2 days Chest x-ray - 09/01/19- Indication: Cough Technique: One view of the chest Comparison: 08/28/2019 Findings: Again demonstrated is right mid and lower lung infiltrate, appearing slightly more extensive than slightly more densely consolidated than on the previous study. There is a suggestion of a small pleural effusion on the right now present. Peripheral infiltrate in the left midlung is less extensive than on the right, but increased from the prior exam. The left pleural space is clear. The heart size is normal. Impression: Increasing right greater than left infiltrates, since prior exam of 4 days earlier Chest x-ray - 09/04/19 - Procedure: XRAY Chest 1v Indication: Shortness of breath Technique: One view of the chest Comparison: 09/01/2019 Findings: Bilateral peripheral infiltrates appear slightly less extensive than on the prior study. The heart size is normal. Impression: Over 3 days, interim slight improvement of previously demonstrated bilateral peripheral infiltrates Microbiology Date/Time Source Procedure Growth Status 08/26/19 15:24 Blood Blood Culture - Final NO GROWTH AFTER 5 DAYS Complete 08/31/19 12:00 Nasopharynx Coronavirus COVID-19 PCR (RAVI) - Final Complete 08/26/19 19:10 Rectum VRE Culture - Final NO VANCOMYCIN RESISTANT ENTEROCOCCUS ... Complete Labs Test 09/03/19 04:00 09/05/19 05:15 White Blood Count 5.2 K/UL (4.8-10.8) 4.8 K/UL (4.8-10.8) Red Blood Count 4.02 M/UL (4.70-6.10) 4.27 M/UL (4.70-6.10) Hemoglobin 12.5 G/DL (14.2-18.0) 13.5 G/DL (14.2-18.0) Hematocrit 35.6 % (42.0-52.0) 38.5 % (42.0-52.0) Mean Corpuscular Volume 88 FL (80-99) 90 FL (80-99) Mean Corpuscular Hemoglobin 31.2 PG (27.0-31.0) 31.6 PG (27.0-31.0) Mean Corpuscular Hemoglobin Concent 35.3 G/DL (32.0-36.0) 35.1 G/DL (32.0-36.0) Red Cell Distribution Width 10.5 % (11.6-14.8) 11.1 % (11.6-14.8) Platelet Count 467 K/UL (150-450) 478 K/UL (150-450) Mean Platelet Volume 5.6 FL (6.5-10.1) 5.3 FL (6.5-10.1) Neutrophils (%) (Auto) 70.4 % (45.0-75.0) 67.7 % (45.0-75.0) Lymphocytes (%) (Auto) 15.1 % (20.0-45.0) 21.5 % (20.0-45.0) Monocytes (%) (Auto) 9.4 % (1.0-10.0) 6.6 % (1.0-10.0) Eosinophils (%) (Auto) 3.9 % (0.0-3.0) 2.9 % (0.0-3.0) Basophils (%) (Auto) 1.3 % (0.0-2.0) 1.3 % (0.0-2.0) Sodium Level 137 MMOL/L (136-145) Potassium Level 4.7 MMOL/L (3.5-5.1) Chloride Level 106 MMOL/L (98-107) Carbon Dioxide Level 26 MMOL/L (21-32) Anion Gap 5 mmol/L (5-15) Blood Urea Nitrogen 20 mg/dL (7-18) Creatinine 1.1 MG/DL (0.55-1.30) Estimat Glomerular Filtration Rate > 60 mL/min (>60) Glucose Level 106 MG/DL (74-106) Calcium Level 8.4 MG/DL (8.5-10.1) Total Bilirubin 0.2 MG/DL (0.2-1.0) Aspartate Amino Transf (AST/SGOT) 91 U/L (15-37) Alanine Aminotransferase (ALT/SGPT) 136 U/L (12-78) Alkaline Phosphatase 68 U/L (46-116) Total Protein 6.2 G/DL (6.4-8.2) Albumin 2.2 G/DL (3.4-5.0) Globulin 4.0 g/dL Albumin/Globulin Ratio 0.6 (1.0-2.7) Lactate Dehydrogenase 251 U/L (81-234) C-Reactive Protein, Quantitative 2.0 mg/dL (0.00-0.90) Laboratory Tests Test 09/05/19 05:15 White Blood Count 4.8 K/UL (4.8-10.8) Red Blood Count 4.27 M/UL (4.70-6.10) L Hemoglobin 13.5 G/DL (14.2-18.0) L Hematocrit 38.5 % (42.0-52.0) L Mean Corpuscular Volume 90 FL (80-99) Mean Corpuscular Hemoglobin 31.6 PG (27.0-31.0) H Mean Corpuscular Hemoglobin Concent 35.1 G/DL (32.0-36.0) Red Cell Distribution Width 11.1 % (11.6-14.8) L Platelet Count 478 K/UL (150-450) H Mean Platelet Volume 5.3 FL (6.5-10.1) L Neutrophils (%) (Auto) 67.7 % (45.0-75.0) Lymphocytes (%) (Auto) 21.5 % (20.0-45.0) Monocytes (%) (Auto) 6.6 % (1.0-10.0) Eosinophils (%) (Auto) 2.9 % (0.0-3.0) Basophils (%) (Auto) 1.3 % (0.0-2.0) Lactate Dehydrogenase 251 U/L (81-234) H C-Reactive Protein, Quantitative 2.0 mg/dL (0.00-0.90) H Current Medications Medications (Trade) Dose Ordered Sig/Lucius Route PRN Reason Start Time Stop Time Status Last Admin Dose Admin Acetaminophen (Tylenol) 650 mg Q4H PRN ORAL Mild Pain (Pain Scale 1-3) 08/26/19 18:15 09/25/19 18:14 Acetaminophen (Tylenol) 650 mg Q4H PRN ORAL Temp >100.5 08/26/19 18:15 09/25/19 18:14 Albuterol Sulfate (Proventil MDI) 2 puff Q4H PRN INH Shortness of Breath 08/27/19 10:00 11/25/19 09:59 Aspirin (ASA) 81 mg DAILY ORAL 08/26/19 18:21 10/10/19 18:20 09/04/19 08:06 Dextrose (Dextrose 50%) 25 ml Q30M PRN IV Hypoglycemia 08/26/19 18:15 11/24/19 18:14 Dextrose (Dextrose 50%) 50 ml Q30M PRN IV Hypoglycemia 08/26/19 18:15 11/24/19 18:14 Enoxaparin Sodium (Lovenox) 60 mg Q24H SUBQ 08/27/19 14:00 11/25/19 13:59 09/05/19 15:00 Famotidine (Pepcid) 20 mg BID ORAL 08/27/19 09:00 11/25/19 08:59 09/04/19 17:09 Magnesium Hydroxide (Mom) 30 ml HSPRN PRN ORAL Constipation 08/26/19 18:15 09/25/19 18:14 09/02/19 02:11 Nitroglycerin (Ntg) 0.4 mg Q5M PRN SL Prn Chest Pain 08/26/19 18:15 09/25/19 18:14 Ondansetron HCl (Zofran) 4 mg Q6H PRN IVP Nausea & Vomiting 08/26/19 18:15 09/25/19 18:14 Sodium 1,000 ml @ 50 mls/hr Q20H IV 08/26/19 21:00 09/25/19 20:59 09/05/19 00:38 Marsha Rivera MD September 05, 2019 20:09
--- NOTE | 2019-09-05 20:32 | General Progress Note ---
Assessment/Plan Problem List: (1) Healthcare-associated pneumonia ICD Codes: J18.9 - Pneumonia, unspecified organism SNOMED: 957927647, 047338798 (2) Suspected 2019 novel coronavirus infection ICD Codes: Z20.828 - Contact with and (suspected) exposure to other viral communicable diseases SNOMED: 042671357 (3) Coronary arteriosclerosis ICD Codes: I25.10 - Atherosclerotic heart disease of [place] coronary artery without angina pectoris SNOMED: 36839945 (4) Abnormal LFTs ICD Codes: R94.5 - Abnormal results of liver function studies SNOMED: 822820844 (5) Cholelithiasis ICD Codes: K80.20 - Calculus of gallbladder without cholecystitis without obstruction SNOMED: 788871132 Assessment/Plan: doxy rocephin supportive care covid +, consults appreciated, hydration Subjective Constitutional: Reports: weakness HEENT: Reports: no symptoms Cardiovascular: Reports: no symptoms Respiratory: Reports: cough Gastrointestinal/Abdominal: Reports: no symptoms Genitourinary: Reports: no symptoms Neurologic/Psychiatric: Reports: no symptoms Endocrine: Reports: no symptoms Allergies: Coded Allergies: No Known Allergies (Unverified , 08/26/19) Objective Last 24 Hour Vital Signs Date Time Temp Pulse Resp B/P (MAP) Pulse Ox O2 Delivery O2 Flow Rate FiO2 09/05/19 20:23 96 Nasal Cannula 2.0 28 09/05/19 16:00 96.7 81 19 136/83 (100) 95 09/05/19 16:00 75 09/05/19 12:00 96.6 73 19 116/74 (88) 95 09/05/19 12:00 71 09/05/19 09:00 Nasal Cannula 2.0 09/05/19 08:00 88 09/05/19 08:00 96.7 84 20 140/77 (98) 96 09/05/19 04:50 97.9 69 17 117/73 (88) 97 09/05/19 04:00 52 09/05/19 00:00 97.5 78 18 122/69 (86) 92 09/05/19 00:00 61 09/04/19 21:00 Nasal Cannula 2.0 Intake and Output 09/04/19 09/05/19 19:00 07:00 Intake Total 600 ml Balance 600 ml Intake Oral 600 ml # Voids 2 2 # Bowel Movements 1 Laboratory Tests 09/05/19 05:15: White Blood Count 4.8, Red Blood Count 4.27L, Hemoglobin 13.5L, Hematocrit 38.5L , Mean Corpuscular Volume 90, Mean Corpuscular Hemoglobin 31.6H, Mean Corpuscular Hemoglobin Concent 35.1, Red Cell Distribution Width 11.1L, Platelet Count 478H, Mean Platelet Volume 5.3L, Neutrophils (%) (Auto) 67.7, Lymphocytes (%) (Auto) 21.5, Monocytes (%) (Auto) 6.6, Eosinophils (%) (Auto) 2.9, Basophils (%) (Auto) 1.3, Lactate Dehydrogenase 251H, C-Reactive Protein, Quantitative 2.0H Height (Feet): 5 Height (Inches): 6.00 Weight (Pounds): 120 General Appearance: alert EENT: PERRL/EOMI Neck: normal alignment Cardiovascular: normal rate, regular rhythm Respiratory/Chest: lungs clear Edema: no edema noted Arm (L), no edema noted Arm (R), no edema noted Leg (L), no edema noted Leg (R), no edema noted Pedal (L), no edema noted Pedal (R), no edema noted Generalized Neurologic: 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
--- NOTE | 2019-09-06 02:24 | NUR ---
NURSE NOTES: Called and left a message with Dr. Jaramillo regarding transfer to M/S. Dr. Jaramillo said no. Will continue to monitor.
--- NOTE | 2019-09-06 07:15 | NUR ---
NURSE NOTES:Handoff received from CLAUDE Delcid. Patient received awake and alert and able to make needs known. No acute signs of distress noted. Patient is on room air, IV site is clean dry and intact running prescribed fluids. Bed in the low and locked position with call light within reach, will continue to monitor patient.
[2019-09-06 07:25] LABS: BASOPHILS % (AUTO) 1.6 % (0.0-2.0); EOSINOPHILS % (AUTO) 2.6 % (0.0-3.0); HEMATOCRIT 39.2 % (42.0-52.0); HEMOGLOBIN 13.8 G/DL (14.2-18.0); LYMPHOCYTES % (AUTO) 20.6 % (20.0-45.0); MEAN CORPUSCULAR VOLUME 90 FL (80-99); MONOCYTES % (AUTO) 5.5 % (1.0-10.0); NEUTROPHILS % (AUTO) 69.7 % (45.0-75.0); PLATELET COUNT 456 K/UL (150-450); RED BLOOD COUNT 4.36 M/UL (4.70-6.10); RED CELL DISTRIBUTION WIDTH 11.3 % (11.6-14.8); WHITE BLOOD COUNT 4.5 K/UL (4.8-10.8)
--- NOTE | 2019-09-06 07:29 | NUR ---
HAND-OFF: Report given to CLAUDE Charles. Pt stable.
[2019-09-06 07:45] LABS: ALANINE AMINOTRANSFERASE 176 U/L (12-78); ALBUMIN 2.7 G/DL (3.4-5.0); ALBUMIN/GLOBULIN RATIO 0.7 (1.0-2.7); ALKALINE PHOSPHATASE 75 U/L (46-116); ANION GAP 8 mmol/L (5-15); ASPARTATE AMINO TRANSFERASE 79 U/L (15-37); BILIRUBIN,TOTAL 0.4 MG/DL (0.2-1.0); BLOOD UREA NITROGEN 11 mg/dL (7-18); CARBON DIOXIDE 29 MMOL/L (21-32); CHLORIDE 105 MMOL/L (98-107); POTASSIUM 4.4 MMOL/L (3.5-5.1); SODIUM 142 MMOL/L (136-145)
[2019-09-06 08:00] VITALS: BP 130/82
[2019-09-06] MEDS: Aspirin Baby 81mg ORAL SCH (08:34)
[2019-09-06 12:00] VITALS: BP 124/70
[2019-09-06] MEDS ORDERED: MOM30 ML ORAL (12:12)
[2019-09-06] MEDS ORDERED: ACETAMINOPHEN325 M1 ORAL (12:12)
[2019-09-06] MEDS ORDERED: NITRO0.4 SL (12:12)
[2019-09-06] MEDS ORDERED: ASPIRIN81 MG ORAL (12:12)
--- NOTE | 2019-09-06 13:50 | NUR ---
*-* DISCHARGE PLANNED *-* PATIENT HAS BEEN FAXED TO: [facility] ROOM# 143-B SKILLED - DUE TO COVID + T: [phone] FOR NURSE TO NURSER REPORT [facility] HAS BEEN ARRANGED FOR PET TECHNOLOGIST AT [phone]
--- NOTE | 2019-09-06 14:05 | NUR ---
NURSE NOTES:Called [facility] and gave report to Padmini.
[2019-09-06] MEDS: Enoxaparin 60mg Inj SUBQ SCH (14:29)
--- NOTE | 2019-09-06 14:50 | Pulmonology Progress Note ---
Luciana Caceres [employer] 09/06/19 1450: Subjective Constitutional: Denies: fever Gastrointestinal/Abdominal: Denies: nausea, vomiting, diarrhea Psychiatric: Denies: depression Skin: Denies: rash Musculoskeletal: Denies: pain Allergies: Coded Allergies: No Known Allergies (Unverified , 08/26/19) Subjective CXR 09/03 Over 3 days, interim slight improvement of previously demonstrated bilateral peripheral infiltrates repeat SARS-CoV-2 by PCR 08/30 still detected, remains in isolation no signs of resp distress. no use of accessory muscles pulse ox stable on RA remains afebrile, no leukocytosis Objective Last 24 Hour Vital Signs Date Time Temp Pulse Resp B/P (MAP) Pulse Ox O2 Delivery O2 Flow Rate FiO2 09/06/19 12:00 68 09/06/19 12:00 97.8 80 20 124/70 (88) 95 09/06/19 09:00 Room Air 09/06/19 08:00 98.6 117 38 130/82 (98) 92 09/06/19 07:47 80 09/06/19 04:00 49 09/06/19 00:00 63 09/05/19 21:00 Room Air 09/05/19 20:23 96 Nasal Cannula 2.0 28 09/05/19 20:00 82 09/05/19 20:00 97.3 89 18 133/80 (97) 97 09/05/19 16:00 96.7 81 19 136/83 (100) 95 09/05/19 16:00 75 Intake and Output 09/05/19 09/06/19 19:00 07:00 Intake Total 300 ml Output Total 600 ml Balance -300 ml Intake Oral 300 ml Output Urine Total 600 ml # Voids 2 # Bowel Movements 2 Objective General Appearance: no apparent distress, alert , awake elderly male , forgetful Lines, tubes and drains: peripheral HEENT: normocephalic, atraumatic, anicteric, mucous membranes moist, PERRL, on O2 via NC Neck: non-tender, supple Respiratory/Chest: few isolated rhonchi , no accessory muscle use Cardiovascular/Chest: normal rate, regular rhythm Abdomen: normal bowel sounds, soft Extremities: no calf tenderness, non-pitting Neurologic: alert, responsive , forgetful Musculoskeletal: atrophy BLE Genitourinary: other - no pablo Laboratory Tests 09/06/19 06:09: White Blood Count 4.5L, Red Blood Count 4.36L, Hemoglobin 13.8L, Hematocrit 39.2L, Mean Corpuscular Volume 90, Mean Corpuscular Hemoglobin 31.7H, Mean Corpuscular Hemoglobin Concent 35.2, Red Cell Distribution Width 11.3L, Platelet Count 456H, Mean Platelet Volume 5.3L, Neutrophils (%) (Auto) 69.7, Lymphocytes (%) (Auto) 20.6, Monocytes (%) (Auto) 5.5, Eosinophils (%) (Auto) 2.6, Basophils (%) (Auto) 1.6, Sodium Level 142, Potassium Level 4.4, Chloride Level 105, Carbon Dioxide Level 29, Anion Gap 8, Blood Urea Nitrogen 11, Creatinine 1.0, Estimat Glomerular Filtration Rate > 60, Glucose Level 85, Calcium Level 9.0, Total Bilirubin 0.4, Aspartate Amino Transf (AST/SGOT) 79H, Alanine Aminotransferase (ALT/SGPT) 176H, Alkaline Phosphatase 75, Total Protein 6.7, Albumin 2.7L, Globulin 4.0, Albumin/Globulin Ratio 0.7L Current Medications Medications (Trade) Dose Ordered Sig/Lucius Route PRN Reason Start Time Stop Time Status Last Admin Dose Admin Acetaminophen (Tylenol) 650 mg Q4H PRN ORAL Mild Pain (Pain Scale 1-3) 08/26/19 18:15 09/25/19 18:14 Acetaminophen (Tylenol) 650 mg Q4H PRN ORAL Temp >100.5 08/26/19 18:15 09/25/19 18:14 Albuterol Sulfate (Proventil MDI) 2 puff Q4H PRN INH Shortness of Breath 08/27/19 10:00 11/25/19 09:59 Aspirin (ASA) 81 mg DAILY ORAL 08/26/19 18:21 10/10/19 18:20 09/06/19 08:34 Dextrose (Dextrose 50%) 25 ml Q30M PRN IV Hypoglycemia 08/26/19 18:15 11/24/19 18:14 Dextrose (Dextrose 50%) 50 ml Q30M PRN IV Hypoglycemia 08/26/19 18:15 11/24/19 18:14 Enoxaparin Sodium (Lovenox) 60 mg Q24H SUBQ 08/27/19 14:00 11/25/19 13:59 09/06/19 14:29 Famotidine (Pepcid) 20 mg BID ORAL 08/27/19 09:00 11/25/19 08:59 09/04/19 17:09 Magnesium Hydroxide (Mom) 30 ml HSPRN PRN ORAL Constipation 08/26/19 18:15 09/25/19 18:14 09/02/19 02:11 Nitroglycerin (Ntg) 0.4 mg Q5M PRN SL Prn Chest Pain 08/26/19 18:15 09/25/19 18:14 Ondansetron HCl (Zofran) 4 mg Q6H PRN IVP Nausea & Vomiting 08/26/19 18:15 09/25/19 18:14 Sodium 1,000 ml @ 50 mls/hr Q20H IV 08/26/19 21:00 09/25/19 20:59 09/05/19 20:57 Assessment/Plan Assessment/Plan ASSESSMENT Confirmed COVID 19 infection Probably sepsis ( with fevers, leukocytosis, lactic acidosis and evidence of infection) PNA Hypoxia Transaminitis ALEC FTT , probably due to protein calorie malnutrition PLAN OF CARE tele SARS-CoV-2 by PCR detected repeated COVID 19 on 08/30 still defected remains in isolation repeat CoVUD 19 in am completed empiric Ceftriaxone and Doxycycline 09/01, BCX 08/25 NGT , leuk and fevers resolved ID on board now CXR 08/27 - Slight interim increase in bilateral right greater than left infiltrates, likely pneumonia, over 2 days CXR 08/31 with increasing right greater than left infiltrates, since prior exam CXR 09/03 - over 3 days, interim slight improvement of previously demonstrated bilateral peripheral infiltrates now on RA pulse ox stable elevated CRP-7.5 and LDH -286, on 08/31; ferritin stable 325 , trend further 09/03 CRP 2.0, LDH 251; O2 titrate to keep sat above 90% , stable on 2 L via NC MDI DVT prophylaxis ASA resumed gentle IV hydration monitor renal paramerts, lytes, correct as needed trend LFT-> trending down abd US pending GI prophylaxis dietary eval re protein supplements , pt reports loose stool after supplements , dietary re-eval for other choice of protein supplements can go to [facility] if ok with attending dc plan in progress case discussed and evaluated by supervising physician Yunier Decker MD 09/06/19 1734: Subjective Allergies: Coded Allergies: No Known Allergies (Unverified , 08/26/19) Assessment/Plan Assessment/Plan Patient seen and examined with [employer]. Agree with above A&P as it reflects our joint deliberations. Luciana Caceres NP September 06, 2019 14:50 Yunier Decker MD September 06, 2019 17:34
[2019-09-06 16:00] VITALS: BP 116/75
--- NOTE | 2019-09-06 17:10 | NUR ---
NURSE NOTES:patient left with EMS vitals stable. Patient IV removed no bleeding or hematoma noted. Patient signed the belongings list. ID bracelet removed. No acute signs of distress noted. Patient left alert and oriented and able to make needs known.
--- NOTE | 2019-09-07 05:45 | Discharge Summary ---
DATE OF ADMISSION: 08/26/2019 DATE OF DISCHARGE: 09/06/2019 PERTINENT HISTORY: The patient is a 73-year-old man who presents for eating and drinking poorly over the past few days, generalized weakness, and decreased oxygen saturation. He was found to have a positive test for COVID-19. PERTINENT PHYSICAL EXAMINATION: LUNGS: Clear. He has a dry cough. HEART: Regular rhythm. ABDOMEN: Soft. EXTREMITIES: No edema. COURSE IN THE HOSPITAL: The patient was isolative for COVID-19. X-ray showed consolidation in the right middle and lower lung. He was given empiric antibiotics and seen by Infectious Diseases and pulmonary consultants. The patient's oxygen saturation improved and he was able to tolerate a diet and needed to continue isolation. Arrangements were made for him to go to a [facility] facility. FINAL DIAGNOSES: 1. COVID-19 positive pneumonia . 2. Acute respiratory failure with hypoxemia. 3. Anorexia. 4. Anemia. 5. Mild dehydration. 6. Moderate protein-calorie malnutrition. 7. History of coronary artery disease. 8. History of BPH. DISCHARGE DISPOSITION: To the [facility] on a regular diet. MEDICATIONS: Per the discharge medication list. FOLLOWUP: Follow up with . Earle Jaramillo M.D. DR: Abner JOB#: [id number] CC:
== END 2019-09-06 17:10 | DRG 871 ==
LOC: EDBD 14:31 → EMR 15:45 → EDBEDREQ 18:38 → 2E 18:56
DX: A41.89 Other specified sepsis (principal); U07.1 COVID-19; J96.01 Acute respiratory failure with hypoxia; J12.89 Other viral pneumonia; E44.0 Moderate protein-calorie malnutrition; E86.0 Dehydration; I25.10 Atherosclerotic heart disease of native coronary artery without angina pectoris; N40.0 Benign prostatic hyperplasia without lower urinary tract symptoms; R62.7 Adult failure to thrive
CPT/HCPCS: 36415; 71045; 76700; 80048; 80053; 81003; 82550; 82553; 82728; 82962; 83605; 83615; 83880; 84443; 84484; 85007; 85025; 86140; 87040; 87081; 87635; 93005; 96361; 96365; 96367; 97802; 99291; J7030